=== PATIENT | male | born 1940 | race Caucasian/White ===

== ENCOUNTER 2020-11-11 13:16 | Inpatient (IN) ==
--- NOTE | 2020-11-11 13:56 | Emergency Department Note ---
Male Urogenital HPI General Chief complaint: Urogenital-Male Stated complaint: urinary issues Time Seen by Provider: 11/11/20 13:20 Source: patient Mode of arrival: ambulatory Limitations: no limitations History of Present Illness HPI Narrative: Narrative: 80-year-old male with a history of BPH and lower urinary tract symptoms presents the ER to be evaluated for increasing urgency, frequency, hesitancy and retent ion. He states he can never get a significant amount of fluid out when he urinates. He states he has had some pain with urination but denies any blood with his urination. He was recently treated with Macrobid for urinary tract infection and his primary care is done at the [facility] by Torsten Gill. He states he has not had any fever, chills, body aches, nausea or vomiting. His symptoms have persisted for approximately 2 months and have been worsening. His only other complaint is he states he has felt generally weak. He has had no syncope or near syncope and denies groin or flank pain. He did have a PSA of 5.04 that was taken while at the [facility]. He previously had a urologist to last saw him in July 2019 but has since left the [facility]. Related Data Home Medications Medication Instructions Recorded Confirmed aspirin [Aspir-81] 81 mg PO QDAY 11/11/20 11/11/20 cholecalciferol (vitamin D3) 100 mcg PO QDAY 11/11/20 11/11/20 [Vitamin D3] doxazosin 1 mg PO QHS 11/11/20 11/11/20 saw palmetto-pumpkin seed oil 160 cap PO DAILY 11/11/20 11/11/20 sildenafil 100 mg PO QDAY PRN 11/11/20 11/11/20 Allergies Allergy/AdvReac Type Severity Reaction Status Date / Time Ether Allergy Unknown Unknown Verified 11/11/20 15:46 Penicillins AdvReac Intermediate Hives Verified 11/11/20 15:46 melaleuca oil Allergy Unknown Unknown Uncoded 06/17/19 09:25 Review of Systems ROS ROS Narrative: Narrative: All systems ED: reviewed and negative except as stated. [facility] Narrative Patient History Narrative: Narrative: Medical/Surgical/Family History All Active Problems (Updated 11/11/20 @ 16:06 by Sedrick Sinclair PA-C) Acute GI bleeding (Acute) Hematuria (Chronic) Muscle spasm of back (Chronic) Right knee pain (Chronic) Enlarged prostate without lower urinary tract symptoms (luts) (Chronic) Nontoxic thyroid nodule (Chronic) Right thigh pain (Chronic) Back pain (Chronic) Multiple rib fractures (Chronic) Benign prostatic hyperplasia (Chronic) Lumbar vertebral fracture (Chronic) Right femoral fracture (Chronic) Urinary retention (Chronic) Medical History Back pain Benign prostatic hyperplasia Enlarged prostate without lower urinary tract symptoms (luts) Hematuria Lumbar vertebral fracture Multiple rib fractures Muscle spasm of back Nontoxic thyroid nodule Right femoral fracture Right knee pain Right thigh pain Urinary retention Surgical History History of surgery Left Femur, "1960's or 1970's" Family History Mother Ovarian cancer Father Myocardial infarction Other Ischemic heart disease Social History Smoking Status: Never smoker Alcohol Intake Frequency: holiday/special occasion only Substance Use: does not use Exam Narrative Narrative: Narrative: Gen: No acute distress Eyes: PERRL, no conjunctival injection , and symmetrical lids. Sclerae non ic teric HENMT: Normocephalic Atraumatic head, external nose and ears. Moist MM. CVS: +S1/S2, No murmurs or gallops. Radial pulses 2+ and equal bilat. lower extremity 2+ pitting edema RESP: Unlabored respiratory effort . Clear to auscultation bilaterally (CTAB). No noted wheezes rales or ronchi. GI: Nontender/Nondistended (NTND), mild suprapubic tenderness to palpation Urogenital: Uncircumcised penis, Osmel material on the anterior portion of the glans without evidence of infection or yeast infiltration. No discharge from the glans. Patient has significant tenderness over the epididymis bilaterally, no scrotal swelling or deformity. MSK: Extremities w/o deformity or ttp. No cyanosis or clubbing. Skin: Warm, Dry . No rashes or lesions . Cap refill less than 2. Neuro: No focal neurological deficit Psych: Awake, Alert, & Oriented (AAO) x3. Appropriate mood and affect . General Limitations: no limitations Course Course Course Narrative: Patient has been having dysuria, hesitancy, urgency and frequency with limited amounts over the past several months he feels like he is retaining. He also states he is felt generally weak. He does have a positive PSA of 5.04 which was taken at the [facility]. He denies any other complaints such as nausea, vomiting, chest pain, chest pressure, weight loss, perineal pain. He did have significant tenderness over the epididymis bilaterally. He had a urologist visit July 2019 but that urologist has since left the [facility]. He is taking doxazosin currently. He will be evaluated with bladder scan, CBC, CMP, UA, urine culture and ultrasound of the testicles at this time. Vital Signs Vital signs: Vital Signs Temperature 97.7 F 11/11/20 13:16 Pulse Rate 91 H 11/11/20 13:16 Respiratory Rate 18 11/11/20 13:16 Blood Pressure 116/64 11/11/20 13:16 Pulse Oximetry (%) 99 11/11/20 13:16 Temperature 97.7 F 11/11/20 13:16 Pulse Rate 83 11/11/20 15:16 Respiratory Rate 18 11/11/20 13:16 Blood Pressure 114/65 11/11/20 15:16 Pulse Oximetry (%) 97 11/11/20 15:16 MDM MDM Narrative Medical decision making narrative: Narrative: Bladder Scan: 6 Mls CBC: Hemoglobin of 6-1/2 more rectal exam was performed and Hemoccult was positive CMP: Unremarkable UA: Significant elevation WBC's, positive for leukoesterase, RBCs, calcium oxalate crystals, neg for bacteria urine Culture: Pending US testicles: Good blood flow bilaterally, no evidence of testicles are homogenous no evidence of mass. There is slight hydrocele and no evidence of epididymitis. Patient states he has been generally weak for a few months and is now having urine hesitancy, urgency, frequency and dysuria. He has had recent urinary tract infections which are well treated with Macrobid. Patient denies any bleeding from the rectum or with his stools. Rectal exam was performed which was Hemoccult positive. Patient was also found to be significantly anemic with a hemoglobin of 6.5. I attempted to contact his primary care provider at the [facility] Torsten Gill who is not in today. Given the patient's GI bleeding and significant anemia and current transfusion. I feel he would benefit from further inpatient evaluation. We currently do not have a sales coordinator on-call however, Dr. Suárez general surgeon does do colonoscopies and is on-call today. He will be contacted at this time. Dr. Suárez: States he would come in to see the patient will be glad to prep him and perform colonoscopy while patient is inpatient and he should be admitted to the hospitalist. Dr. Saldana: Agreed to admit the patient he requested the patient receive 40 mg of Protonix at this time due to GI bleeding. He would further evaluate the patient and will place outpatient urology referral in when the patient is discharged. Lab Data Result diagrams: 11/11/20 14:06 11/11/20 14:06 Labs: Lab Results 11/11/20 11/11/20 Range/Units 13:47 14:06 WBC 7.8 (4.5-11.0) K/mcL RBC 3.58 L (4.50-5.90) M/mcL Hgb 6.5 L* (13.5-16.5) g/dL Hct 24.6 L (41.0-55.0) % MCV 68.7 L (80.0-100.0) fL MCH 18.2 L (26.0-34.0) pg MCHC 26.4 L (31.0-36.0) g/dL RDW 19.3 H (11.5-14.5) % Plt Count 388 (140-440) K/mcL MPV 9.9 (7.4-10.4) fL Neut % (Auto) 74.0 (38.0-78.0) % Lymph % (Auto) 15.5 (15.0-49.0) % [place] % (Auto) 8.6 (1.0-12.0) % Eos % (Auto) 1.4 (0.0-7.0) % Baso % (Auto) 0.5 (0.0-2.0) % Lymph # (Auto) 1.21 L (1.50-4.80) K/mcL [place] # (Auto) 0.67 (0.10-0.90) K/mcL Eos # (Auto) 0.11 (0.00-0.70) K/mcL Baso # (Auto) 0.04 (0.00-0.20) K/mcL Absolute Neutrophils 5.79 (1.80-8.00) K/mcL Urine Color [place] Urine Appearance Cloudy A (Clear) Urine pH 5.0 (5.0-9.0) Ur Specific [place] 1.025 (1.000-1.035) Urine Protein 100 A (Negative) mg/dL Urine Glucose (UA) Negative (Negative) mg/dL Urine Ketones Negative (Negative) mg/dL Urine Occult Blood >=1.0 A (Negative) mg/dL Urine Nitrate Negative (Negative) Urine Bilirubin Negative (Negative) mg/dL Urine Urobilinogen Negative mg/dL Ur Leukocyte Esterase 500 A (Negative) /ug Urine RBC > 182 H (0-1) /hpf Urine WBC > 182 H (0-4) /hpf Ur Squamous Epith Cells 0 (0-4) /hpf Ur Transition Epith Cell 1 (0-2) /hpf Calcium Oxalate Crystal Many A (None) /hpf Urine Bacteria None (0) /hpf Hyaline Casts 6 H (0-2) /lph Urine Mucus Many A (None) /hpf Ur Culture Indicated? yes Discharge Plan Patient/Caregiver Discharge Instructions Pt seen by RHEUMATOLOGIST/PA only: No Clinical Impression: Acute GI bleeding Patient Disposition: Xfer As Inpt ([facility]) Condition: Good Follow up with: Torsten Gill ARNP [Primary Care Provider] - Prescriptions: No Action doxazosin 1 mg Tablet 1 mg PO QHS RF: 0 aspirin [Aspir-81] 81 mg Tablet,Delayed Release (Dr/Ec) 81 mg PO QDAY RF: 0 sildenafil 100 mg Tablet 100 mg PO QDAY PRN (Reason: Erectile Dysfunction) RF: 0 saw palmetto-pumpkin seed oil 160 mg Capsule 160 cap PO DAILY RF: 0 cholecalciferol (vitamin D3) [Vitamin D3] 50 mcg (2,000 unit) Capsule 100 mcg PO QDAY RF: 0
[2020-11-11 14:31] LABS: Appearance,Urine CLOUDY (Clear); Bilirubin,Urine Negative (Negative); Calcium Oxalate Crystals,Urine MANY /hpf; Color,Urine AMBER; Culture Indicated,Urine yes; Glucose,Urine (UA) Negative (Negative); Ketones,Urine Negative (Negative); Leukocyte Esterase,Urine 500 /ug (Negative); Mucus,Urine MANY /hpf; Nitrate,Urine Negative (Negative); Protein,Urine 100 mg/dL (Negative); Specific Gravity,Urine 1.025 (1.000-1.035); Urine Blood >=1.0 mg/dL (Negative); Urine Hyaline Cast 6 /lph (0-2); Urine RBC > 182 /hpf (0-1); Urine Squamous Epithelial Cell 0 /hpf (0-4); Urine Transitional Epi Cells 1 /hpf (0-2); Urine WBC > 182 /hpf (0-4); Urobilinogen,Urine Negative
[2020-11-11 15:05] LABS: Basophils # (Auto) 0.04 K/mcL (0.00-0.20); Basophils % (Auto) 0.5 % (0.0-2.0); Eosinophils # (Auto) 0.11 K/mcL (0.00-0.70); Eosinophils % (Auto) 1.4 % (0.0-7.0); Hematocrit 24.6 % (41.0-55.0); Hemoglobin 6.5 g/dL (13.5-16.5); Lymphocytes # (Auto) 1.21 K/mcL (1.50-4.80); Lymphocytes % (Auto) 15.5 % (15.0-49.0); Mean Cell Volume 68.7 fL (80.0-100.0); Mean Corpuscular HGB Conc 26.4 g/dL (31.0-36.0); Mean Platelet Volume 9.9 fL (7.4-10.4); Monocytes # (Auto) 0.67 K/mcL (0.10-0.90); Monocytes % (Auto) 8.6 % (1.0-12.0); Platelet Count 388 K/mcL (140-440); RBC 3.58 M/mcL (4.50-5.90); Red Cell Distribution Width 19.3 % (11.5-14.5); WBC 7.8 K/mcL (4.5-11.0)
[2020-11-11] MEDS ORDERED: 0.9 % SODIUM CHLORIDE 250 ML IV SCH (15:15)
[2020-11-11 15:43] LABS: ALT/SGPT 15 U/L (<40); AST/SGOT 21 U/L (<40); Albumin 3.5 gm/dL (3.2-5.2); Albumin/Globulin Ratio 1.1 (1.0-2.3); Alkaline Phosphatase 90 U/L (39-117); Bilirubin,Total 0.3 mg/dL (0.1-1.0); Blood Urea Nitrogen 20 mg/dL (8-23); Calcium 8.4 mg/dL (8.6-10.4); Carbon Dioxide 24 mmol/L (22-30); Chloride 108 mmol/L (96-108); Globulin 3.1 gm/dL (2.2-3.7); Glomerular Filtration Rate 71; Glucose 116 mg/dL (70-105)
[2020-11-11] MEDS ORDERED: PANTOPRAZOLE 40 MG VIAL IV ONE ×2 (16:07→20:09)
--- NOTE | 2020-11-11 16:22 | Internal Med History&Physical ---
HPI History of Present Illness Patient information: Note initiated : 11/11/20 at 4:22 pm Service Date, if different from initiated Date: [] Patient: Sylvester Rogers a 80 y/o M admitted on for urinary issues. Chief Complaint: [] History of present illness: Mr. Rogers is a 80 year old M with history of hypertension/BPH who presents to the ER with progressive fatigue weakness difficulty urination over the last few days. He was evaluated at [facility], hemoglobin around 6.5, UA significant pyuria/hematuria. He was directed to the ER for further evaluation. Initial work-up in the ER was consistent with anemia however no evidence of acute bleed. surgery was consulted for evaluation. Patient was started on Protonix. Patient endorses to exertional shortness of breath and fatigue and malaise. He is unable to perform strenuous activities or climb a flight of stairs over the last couple of months. He denies black tarry stool/nausea/being on blood thinners or excessive alcohol use. He does endorse to brownish discoloration of urine/occasional bloody urine He lives with his and [place]. Denies fever, chills, recent changes in medications, NSAID use Review of systems 10 point review system was performed and is negative except for ones cussed above PFSH PFSH All Active Problems Acute GI bleeding (Acute) Hematuria (Chronic) Muscle spasm of back (Chronic) Right knee pain (Chronic) Enlarged prostate without lower urinary tract symptoms (luts) (Chronic) Nontoxic thyroid nodule (Chronic) Right thigh pain (Chronic) Back pain (Chronic) Multiple rib fractures (Chronic) Benign prostatic hyperplasia (Chronic) Lumbar vertebral fracture (Chronic) Right femoral fracture (Chronic) Urinary retention (Chronic) Medical History Back pain Benign prostatic hyperplasia Enlarged prostate without lower urinary tract symptoms (luts) Hematuria Lumbar vertebral fracture Multiple rib fractures Muscle spasm of back Nontoxic thyroid nodule Right femoral fracture Right knee pain Right thigh pain Urinary retention Surgical History History of surgery Left Femur, "1960's or 1970's" Family History Mother Ovarian cancer Father Myocardial infarction Other Ischemic heart disease Social History household members: spouse marital status: alcohol intake frequency: holiday/special occasion only substance use type: does not use MEDS/ALLERGIES Home Medications and Allergies Home Medications Medication Instructions Recorded Confirmed Type aspirin [Aspir-81] 81 mg PO QDAY 11/11/20 11/11/20 History cholecalciferol (vitamin D3) 100 mcg PO QDAY 11/11/20 11/11/20 History [Vitamin D3] doxazosin 1 mg PO QHS 11/11/20 11/11/20 History saw palmetto-pumpkin seed oil 160 cap PO DAILY 11/11/20 11/11/20 History sildenafil 100 mg PO QDAY PRN 11/11/20 11/11/20 History Allergies Allergy/AdvReac Type Severity Reaction Status Date / Time Ether Allergy Mild Hives Verified 11/12/20 08:51 Penicillins Allergy Mild Hives Verified 11/12/20 08:51 melaleuca oil Allergy Mild Hives Uncoded 11/12/20 08:51 EXAM Constitutional Vitals: Temp Pulse Resp BP Pulse Ox 97.7 F 82 18 122/68 99 11/11/20 13:16 11/11/20 15:46 11/11/20 13:16 11/11/20 15:46 11/11/20 15:46 Alert oriented Head normocephalic Oral cavity moist No ear nose discharge Eye movement symmetrical, subconjunctival pallor noted Neck supple no lymphadenopathy S1-S2 occasionally irregular Nonlabored breathing Nondistended nontender abdomen Lower extremity no cyanosis clubbing or joint swelling Skin pallor noted, no suspicious lesion Psych anxious but alert cooperative Neuro normal higher function DATA Data Completed and Pending Labs: Labs from last 24 hours 11/11/20 11/11/20 11/11/20 14:06 14:06 14:06 WBC 7.8 RBC 3.58 L Hgb 6.5 L* Hct 24.6 L MCV 68.7 L MCH 18.2 L MCHC 26.4 L RDW 19.3 H Plt Count 388 MPV 9.9 Neut % (Auto) 74.0 Lymph % (Auto) 15.5 [place] % (Auto) 8.6 Eos % (Auto) 1.4 Baso % (Auto) 0.5 Lymph # (Auto) 1.21 L [place] # (Auto) 0.67 Eos # (Auto) 0.11 Baso # (Auto) 0.04 Absolute Neutrophils 5.79 Sodium 140 Potassium 4.2 Chloride 108 Carbon Dioxide 24 Anion Gap 8.0 BUN 20 Creatinine 1.0 GFR Calculation 71 Glucose 116 H Calcium 8.4 L Iron 10 L TIBC 342 Unsat Iron Binding 332 Transferrin % Sat 3 L Ferritin Pending Total Bilirubin 0.3 AST 21 ALT 15 Alkaline Phosphatase 90 Total Protein 6.6 Albumin 3.5 Globulin 3.1 Albumin/Globulin Ratio 1.1 Urine Color Urine Appearance Urine pH Ur Specific [place] Urine Protein Urine Glucose (UA) Urine Ketones Urine Occult Blood Urine Nitrate Urine Bilirubin Urine Urobilinogen Ur Leukocyte Esterase Urine RBC Urine WBC Ur Squamous Epith Cells Ur Transition Epith Cell Calcium Oxalate Crystal Urine Bacteria Hyaline Casts Urine Mucus Ur Culture Indicated? 11/11/20 13:47 WBC RBC Hgb Hct MCV MCH MCHC RDW Plt Count MPV Neut % (Auto) Lymph % (Auto) [place] % (Auto) Eos % (Auto) Baso % (Auto) Lymph # (Auto) [place] # (Auto) Eos # (Auto) Baso # (Auto) Absolute Neutrophils Sodium Potassium Chloride Carbon Dioxide Anion Gap BUN Creatinine GFR Calculation Glucose Calcium Iron TIBC Unsat Iron Binding Transferrin % Sat Ferritin Total Bilirubin AST ALT Alkaline Phosphatase Total Protein Albumin Globulin Albumin/Globulin Ratio Urine Color [place] Urine Appearance Cloudy A Urine pH 5.0 Ur Specific [place] 1.025 Urine Protein 100 A Urine Glucose (UA) Negative Urine Ketones Negative Urine Occult Blood >=1.0 A Urine Nitrate Negative Urine Bilirubin Negative Urine Urobilinogen Negative Ur Leukocyte Esterase 500 A Urine RBC > 182 H Urine WBC > 182 H Ur Squamous Epith Cells 0 Ur Transition Epith Cell 1 Calcium Oxalate Crystal Many A Urine Bacteria None Hyaline Casts 6 H Urine Mucus Many A Ur Culture Indicated? yes A/P Narrative A/P Narrative: * Anemia likely secondary blood loss. Unclear source urinary versus GI, 2 units PRBC transfusion, surgery consult for evaluation of likely GI source of blood loss. IV PPI/clears * Complicated UTI on antibiotic [id number] based on cultures. * Hematuria-abdominal imaging. Urology consult if indicated * History of hypertension continue doxazosin * Prophylax Heparin Plan * Antibiotic coverage * Pre-existing medical condition management home meds * Abdominal imaging for hematuria * IV PPI * Surgery consult * 2 units PRBC transfusion Time Spent With Patient Time: Total time spent is greater than 50% in coordination of care (as documented) at patient's floor/unit and/or counseling patient:
--- NOTE | 2020-11-11 16:42 | Ultrasound Report ---
CLINICAL INFORMATION: Scrotum pain bilat r/o epididymitis or torsion COMPARISON: None. FINDINGS: Both testes are normal and symmetric in size, position, configuration and echotexture: The right is 3.4 x 1.8 cm and the left is 3.3 x 2.1 cm. There are no intratesticular masses. Arterial blood flow is normal and symmetric to both testes on color Doppler. Both epididymides are normal size and echotexture: the right is 1.3 x 0.8 cm and the left is 1.1 x 0.6 cm. Small left hydrocele noted. On the right, there is a small varicocele. A 9 mm echogenic focus is present extratesticular region of the right testicle represents a scrotal faith IMPRESSION: Both testes and epididymides are unremarkable. Small left hydrocele and small right varicocele 8mm scrotal faith in extratesticular region on the right side. 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
[2020-11-11 16:59] LABS: Ferritin 9.7 ng/mL (30.0-400.0)
--- NOTE | 2020-11-11 17:22 | General Surgery Consult Note ---
HPI Data of Consult Patient: new to practice Consult date: 11/11/20 Requesting physician: Sedrick Sinclair Primary Care Provider: Torsten Gill Consult Narrative Patient Information: Note initiated : 11/11/20 at 5:22 pm Service Date, if different from initiated Date: [] Patient: Sylvester Rogers 80 y/o M admitted on for urinary issues. Chief Complaint: [] Chief complaint: Urinary frequency and urgency Reason for consult: Decreased hemoglobin cc:: CC: 80-year-old male with a history of BPH and lower urinary tract symptoms presents the ER to be evaluated for increasing urgency, frequency, hesitancy and retention. He states he can never get a significant amount of fluid out when he urinates. He states he has had some pain with urination but denies any blood with his urination. He was recently treated with Macrobid for urinary tract infection and his primary care is done at the [facility] by Torsten Gill. He states he has not had any fever, chills, body aches, nausea or vomiting. His symptoms have persisted for approximately 2 months and have been worsening. His only other complaint is he states he has felt generally weak. He has had no syncope or near syncope and denies groin or flank pain. He did have a PSA of 5.04 that was taken while at the [facility]. He previously had a urologist to last saw him in July 2019 but has since left the [facility]. On work-up patient was found to have a low H&H, along with blood in the urine and Hemoccult positive stools. Patient reports that he has had regular colorectal screening with colonoscopy, and his last one was several years ago and they have all been negative. He denies any bowel changes, he denies seeing any blood in his stools or dark or melanotic stools. Review of Systems Review of systems: All systems are reviewed, negative other than above PFSH PFSH All Active Problems Acute GI bleeding (Acute) Hematuria (Chronic) Muscle spasm of back (Chronic) Right knee pain (Chronic) Enlarged prostate without lower urinary tract symptoms (luts) (Chronic) Nontoxic thyroid nodule (Chronic) Right thigh pain (Chronic) Back pain (Chronic) Multiple rib fractures (Chronic) Benign prostatic hyperplasia (Chronic) Lumbar vertebral fracture (Chronic) Right femoral fracture (Chronic) Urinary retention (Chronic) Medical History Back pain Benign prostatic hyperplasia Enlarged prostate without lower urinary tract symptoms (luts) Hematuria Lumbar vertebral fracture Multiple rib fractures Muscle spasm of back Nontoxic thyroid nodule Right femoral fracture Right knee pain Right thigh pain Urinary retention Surgical History History of surgery Left Femur, "1960's or 1970's" Family History Mother Ovarian cancer Father Myocardial infarction Other Ischemic heart disease Social History household members: spouse marital status: alcohol intake frequency: holiday/special occasion only substance use type: does not use MEDS/ALLERGIES Home Medications and Allergies Home Medications Medication Instructions Recorded Confirmed Type aspirin [Aspir-81] 81 mg PO QDAY 11/11/20 11/11/20 History cholecalciferol (vitamin D3) 100 mcg PO QDAY 11/11/20 11/11/20 History [Vitamin D3] doxazosin 1 mg PO QHS 11/11/20 11/11/20 History saw palmetto-pumpkin seed oil 160 cap PO DAILY 11/11/20 11/11/20 History sildenafil 100 mg PO QDAY PRN 11/11/20 11/11/20 History Allergies Allergy/AdvReac Type Severity Reaction Status Date / Time Ether Allergy Unknown Unknown Verified 11/11/20 15:46 Penicillins AdvReac Intermediate Hives Verified 11/11/20 15:46 melaleuca oil Allergy Unknown Unknown Uncoded 06/17/19 09:25 Physical Examination Vital Signs Vital signs: Temp Pulse Resp BP Pulse Ox 97.7 F 80 18 121/68 96 11/11/20 13:16 11/11/20 17:16 11/11/20 13:16 11/11/20 17:16 11/11/20 17:16 General physical appearance General physical exam: well developed, well nourished and no distress Eyes Eye exam: PERRL and normal ocular movement ENT ENT exam: normal pinna, normal nares, normal mucosa, no hearing loss and no congestion Head Head exam IM: Present atraumatic and normocephalic Neck Neck exam: no masses, no bruits, trachea midline, no lymphadenopathy and no venous distension Cardiovascular Cardiovascular exam IM: Present normal rate and rhythm Respiratory Respiratory exam: normal expansion, normal respiratory effort, clear to percussion and clear to auscultation Abdomen Abdomen: Present soft, non tender and bowel sounds Hernia: Present none Genitourinary Genitourinary (Male): Present normal penis with no external lesions Rectum Rectum: Present normal sphincter tone, no hemorrhoids, no tenderness, no masses and no bleeding Integumentary Integumentary: Present no rash, no growths and no abnormal pigmentation Neurologic Neurologic: Present normal coordination and normal sensation Musculoskeletal Musculoskeletal: Present normal gait and normal posture Psychiatric Psychiatric: Present oriented to time, oriented to person, oriented to place, speech is normal and memory intact Results Labs Result diagrams: 11/11/20 14:06 11/11/20 14:06 Labs: Abnormal lab results 11/11/20 11/11/20 11/11/20 Range/Units 13:47 14:06 14:06 RBC 3.58 L (4.50-5.90) M/mcL Hgb 6.5 L* (13.5-16.5) g/dL Hct 24.6 L (41.0-55.0) % MCV 68.7 L (80.0-100.0) fL MCH 18.2 L (26.0-34.0) pg MCHC 26.4 L (31.0-36.0) g/dL RDW 19.3 H (11.5-14.5) % Lymph # (Auto) 1.21 L (1.50-4.80) K/mcL Glucose 116 H (70-105) mg/dL Calcium 8.4 L (8.6-10.4) mg/dL Iron (61-157) ug/dL Transferrin % Sat (20-50) % Ferritin (30.0-400.0) ng/mL Urine Appearance Cloudy A (Clear) Urine Protein 100 A (Negative) mg/dL Urine Occult Blood >=1.0 A (Negative) mg/dL Ur Leukocyte Esterase 500 A (Negative) /ug Urine RBC > 182 H (0-1) /hpf Urine WBC > 182 H (0-4) /hpf Calcium Oxalate Crystal Many A (None) /hpf Hyaline Casts 6 H (0-2) /lph Urine Mucus Many A (None) /hpf 11/11/20 Range/Units 14:06 RBC (4.50-5.90) M/mcL Hgb (13.5-16.5) g/dL Hct (41.0-55.0) % MCV (80.0-100.0) fL MCH (26.0-34.0) pg MCHC (31.0-36.0) g/dL RDW (11.5-14.5) % Lymph # (Auto) (1.50-4.80) K/mcL Glucose (70-105) mg/dL Calcium (8.6-10.4) mg/dL Iron 10 L (61-157) ug/dL Transferrin % Sat 3 L (20-50) % Ferritin 9.7 L (30.0-400.0) ng/mL Urine Appearance (Clear) Urine Protein (Negative) mg/dL Urine Occult Blood (Negative) mg/dL Ur Leukocyte Esterase (Negative) /ug Urine RBC (0-1) /hpf Urine WBC (0-4) /hpf Calcium Oxalate Crystal (None) /hpf Hyaline Casts (0-2) /lph Urine Mucus (None) /hpf Diabetes panel 11/11/20 Range/Units 14:06 Sodium 140 (133-145) mmol/L Potassium 4.2 (3.3-5.1) mmol/L Chloride 108 (96-108) mmol/L Carbon Dioxide 24 (22-30) mmol/L BUN 20 (8-23) mg/dL Creatinine 1.0 (0.7-1.2) mg/dL Glucose 116 H (70-105) mg/dL Calcium 8.4 L (8.6-10.4) mg/dL AST 21 (<40) U/L ALT 15 (<40) U/L Alkaline Phosphatase 90 (39-117) U/L Total Protein 6.6 (5.9-8.4) gm/dL Albumin 3.5 (3.2-5.2) gm/dL Calcium panel 11/11/20 Range/Units 14:06 Calcium 8.4 L (8.6-10.4) mg/dL Albumin 3.5 (3.2-5.2) gm/dL Pituitary panel 11/11/20 Range/Units 14:06 Sodium 140 (133-145) mmol/L Potassium 4.2 (3.3-5.1) mmol/L Chloride 108 (96-108) mmol/L Carbon Dioxide 24 (22-30) mmol/L BUN 20 (8-23) mg/dL Creatinine 1.0 (0.7-1.2) mg/dL Glucose 116 H (70-105) mg/dL Calcium 8.4 L (8.6-10.4) mg/dL Adrenal panel 11/11/20 Range/Units 14:06 Sodium 140 (133-145) mmol/L Potassium 4.2 (3.3-5.1) mmol/L Chloride 108 (96-108) mmol/L Carbon Dioxide 24 (22-30) mmol/L BUN 20 (8-23) mg/dL Creatinine 1.0 (0.7-1.2) mg/dL Glucose 116 H (70-105) mg/dL Calcium 8.4 L (8.6-10.4) mg/dL Total Bilirubin 0.3 (0.1-1.0) mg/dL AST 21 (<40) U/L ALT 15 (<40) U/L Alkaline Phosphatase 90 (39-117) U/L Total Protein 6.6 (5.9-8.4) gm/dL Albumin 3.5 (3.2-5.2) gm/dL All other labs normal. A/P Narrative A/P Narrative: This is a pleasant 80-year-old gentleman who presents to the emergency room with escalation of his known urologic problems. On work-up he was found to have heme positive stools along with decreased hemoglobin and hematocrit. Patient has a history of colorectal screening which has been within normal limits, however cannot rule out an acute bleed. The patient's blood loss is more likely related to his urological conditions, however I think it be prudent to do an EGD and colonoscopy while in the hospital. I will plan to order a bowel prep tomorrow and add on the OR schedule for an EGD and colonoscopy on Monday. Thank you very much for this consultation, please call with any further questions. Sahil Suárez MD, FACS [facility] General Surgery Time Spent With Patient Time: Total time spent is greater than 50% in coordination of care (as documented) at patient's floor/unit and/or counseling patient:
[2020-11-11] MEDS ORDERED: ONDANSETRON 4 MG/2 ML VIAL IV PRN (18:21)
[2020-11-11] MEDS ORDERED: POLYETHYLENE GLYCOL 3350 17 GM PACKET PO PRN (18:21)
[2020-11-11] MEDS ORDERED: MAGNESIUM SULFATE 2 GM/50 ML BAG IV PRN (18:21)
[2020-11-11] MEDS ORDERED: ACETAMINOPHEN 650 MG/65 ML BAG IV PRN (18:21)
[2020-11-11] MEDS ORDERED: BISACODYL 10 MG SUPP.RECT PR PRN (18:21)
[2020-11-11] MEDS ORDERED: ONDANSETRON 4 MG ODT TABLET SL PRN (18:21)
[2020-11-11] MEDS ORDERED: POTASSIUM CHLORIDE 40 MEQ in DEXTROSE 5% IN WATER 500 ML IV PRN (18:21)
[2020-11-11] MEDS: 0.9 % SODIUM CHLORIDE 1,000 ML IV SCH (19:09)
[2020-11-11] MEDS ORDERED: cefTRIAXone 1 GM VIAL ONE (20:09)
[2020-11-11] MEDS: PANTOPRAZOLE 40 MG VIAL IV SCH (20:29)
[2020-11-11] MEDS: 0.9 % SODIUM CHLORIDE 10 ML SYRINGE IV SCH (21:09)
[2020-11-11] MEDS: DOCUSATE SODIUM 100 MG CAPSULE PO SCH (21:09)
[2020-11-11] MEDS: SENNOSIDES/DOCUSATE SODIUM 1 TAB TABLET PO SCH (21:09)
[2020-11-11] MEDS: CYANOCOBALAMIN (VITAMIN B-12) 500 MCG TABLET PO SCH (21:15)
[2020-11-11] MEDS: HEPARIN 5,000 UNIT/ML VIAL SQ SCH (21:15)
[2020-11-12] MEDS: ACETAMINOPHEN 325 MG TABLET PO PRN (03:22)
[2020-11-12] MEDS: 0.9 % SODIUM CHLORIDE 10 ML SYRINGE IV SCH ×3 (04:20→20:17)
[2020-11-12 06:34] LABS: Basophils # (Auto) 0.05 K/mcL (0.00-0.20); Basophils % (Auto) 0.7 % (0.0-2.0); Eosinophils % (Auto) 2.8 % (0.0-7.0); Hematocrit 27.3 % (41.0-55.0); Hemoglobin 7.7 g/dL (13.5-16.5); Lymphocytes # (Auto) 1.16 K/mcL (1.50-4.80); Lymphocytes % (Auto) 16.5 % (15.0-49.0); Mean Cell Volume 70.2 fL (80.0-100.0); Mean Corpuscular HGB Conc 28.2 g/dL (31.0-36.0); Mean Platelet Volume 10.1 fL (7.4-10.4); Monocytes # (Auto) 0.66 K/mcL (0.10-0.90); Monocytes % (Auto) 9.4 % (1.0-12.0); Neutrophils % (Auto) 70.6 % (38.0-78.0); Platelet Count 360 K/mcL (140-440); RBC 3.89 M/mcL (4.50-5.90); Red Cell Distribution Width 20.5 % (11.5-14.5); WBC 7.1 K/mcL (4.5-11.0)
[2020-11-12 07:08] LABS: ALT/SGPT 11 U/L (<40); AST/SGOT 21 U/L (<40); Albumin 3.2 gm/dL (3.2-5.2); Albumin/Globulin Ratio 1.1 (1.0-2.3); Alkaline Phosphatase 84 U/L (39-117); Bilirubin,Direct < 0.2 mg/dL (0-0.3); Bilirubin,Total 0.8 mg/dL (0.1-1.0); Blood Urea Nitrogen 16 mg/dL (8-23); Calcium 7.8 mg/dL (8.6-10.4); Carbon Dioxide 25 mmol/L (22-30); Chloride 110 mmol/L (96-108); Globulin 2.9 gm/dL (2.2-3.7); Glomerular Filtration Rate 90; Glucose 94 mg/dL (70-105); Lactate Dehydrogenase 175 U/L (135-225); Phosphorous 2.7 mg/dL (2.5-4.5); Triglycerides 54 mg/dL (<150); Uric Acid 4.4 mg/dL (2.5-8.0)
[2020-11-12] MEDS ORDERED: PEG 3350/NA SULF,BICARB,CL/KCL 4,000 ML ORAL.SOL PO ONE (08:30)
--- NOTE | 2020-11-12 08:30 | General Surgery Progress Note ---
SUBJECTIVE Subjective Patient information: Note initiated : 11/12/20 at 8:28 am Service Date, if different from initiated Date: [] Patient: Sylvester Rogers 80 y/o M admitted on 11/11/20 for urinary issues. Chief Complaint: [] Interval history: Patient is doing well without complaints this morning. No change in symptoms since last night. Constitutional Vitals: Vital Signs Temp Pulse Resp BP Pulse Ox 98.1 F 74 20 126/77 94 11/12/20 04:01 11/12/20 07:01 11/12/20 07:01 11/12/20 07:01 11/12/20 07:01 Period Temp Pulse Resp BP Sys/Barrera Pulse Ox Last 24 Hr 97.7 F-98.7 F 71-91 15-31 113-146/61-90 90-100 Intake and Output 11/11/20 11/12/20 11/12/20 21:59 05:59 13:59 Intake Total 425 1030 400 Output Total 575 Balance 425 455 400 Weight 243 lb Intake & Output: Intake & Output 11/11/20 11/12/20 11/12/20 21:59 05:59 13:59 Intake Total 425 1030 400 Output Total 575 Balance 425 455 400 Weight 243 lb Intake: Oral 350 400 Blood Product 375 340 Packed Cells 340 IV - Manual Only 50 Output: Void Amount 575 Other: Meal Breakfast Percent of Meal Consumed 100% Feeding Ability Independent Urine Appearance Clear Urine Color Dark Yellow Urine Odor Normal Stool Size Moderate Moderate Stool Color Brown Brown Stool Consistency Normal for Patient Normal for Patient # Bowel Movements 1 General appearance: cooperative and no acute distress GI/Abdominal GI/Abdominal exam: Present soft; Absent tenderness A/P Narrative A/P Narrative: Complex medical history, however what appears to be chronic anemia with blood in urine and guaiac positive. We will do colon prep today, patient is scheduled for EGD colonoscopy with me tomorrow. Time Spent With Patient Time: Total time spent is greater than 50% in coordination of care (as documented) at patient's floor/unit and/or counseling patient:
[2020-11-12] MEDS ORDERED: PNEUMOCOCCAL 23-VAL P-SAC VAC 0.5 ML SYRINGE IM ONE (10:00)
[2020-11-12] MEDS: CYANOCOBALAMIN (VITAMIN B-12) 500 MCG TABLET PO SCH ×2 (10:09→20:16)
[2020-11-12] MEDS: MULTIVIT,THER IRON,CA,FA & MIN 1 TABLET PO SCH (10:09)
[2020-11-12] MEDS: HEPARIN 5,000 UNIT/ML VIAL SQ SCH ×2 (10:10→20:17)
[2020-11-12] MEDS: cefTRIAXone 2 GM in DEXTROSE 5% IN WATER 50 ML IV SCH (10:10)
[2020-11-12] MEDS: FOLIC ACID 1 MG TABLET PO SCH (10:10)
[2020-11-12] MEDS: PANTOPRAZOLE 40 MG VIAL IV SCH ×2 (10:10→18:29)
[2020-11-12] MEDS ORDERED: IOPAMIDOL 125 ML BOTTLE IV ONE (11:03)
[2020-11-12] MEDS: DOCUSATE SODIUM 100 MG CAPSULE PO SCH ×2 (11:50→20:17)
--- NOTE | 2020-11-12 12:15 | Cat Scan Report ---
CLINICAL INFORMATION: Hematuria COMPARISON: None. TECHNIQUE: 2.5mm precontrast images were obtained from kidneys through bladder. 60 cc of Isovue-370 were then injected intravenously. 7 minutes later, 60 cc of Isovue 370 was reinjected and 8 minutes after initial injection, 0.625 mm helical slices were obtained from the mid heart through the subtrochanteric regions of the femurs. Following reconstruction, 2.5 mm sagittal, coronal and axial reformatted images were obtained through the entire abdomen. The exam was performed using radiation dose optimization techniques including, but not limited to, automated exposure control, adjustment of the mA and/or kV according to patient size and use of iterative reconstruction technique. FINDINGS: Lung bases show scattered atelectasis and/or scarring periphery of the lower lobes. No effusions. The visualized heart is mildly enlarged and there is scattered calcific plaque in the visualized coronary arteries. Small hiatal hernia noted Abdominal images show a large solitary 4.2 cm solitary stone in the gallbladder. Gallbladder and bile ducts are, otherwise, normal CBD is 5 mm. Minimal fatty change present within the liver, but no focal hepatic lesion. The adrenal glands, spleen, pancreas and aorta including aortic branches are normal in size and duration attenuation without focal lesion Both kidneys are normal and symmetric in size, position, configuration and attenuation: The right is 12.2 cm in length and the left is 11 cm in length. A 5 mm simple cyst is present in the right mid kidney and 11 mm simple is seen in the superior pole of the left kidney. No solid lesions, stones or hydronephrosis. Both upper collecting systems and ureters are normal. Pelvic images show massive prostate enlargement 7.2 x 6.5 cm. Prostate base invaginates the urinary bladder. Urinary bladder wall demonstrates moderate diffuse thickening compatible with chronic bladder outlet narrowing. There is a moderate right inguinal hernia which contains mesenteric fat and the right urinary bladder dome. Small left inguinal hernia contains only mesenteric fat. Scattered sigmoid diverticuli appreciated no evidence of diverticulitis. The remaining colon and appendix region are normal. 2.3 cm lipoma is seen within the mid jejunal loop located in the mid abdomen on axial image 89. Small bowel is, otherwise, normal. Stomach is grossly unremarkable. Bone windows show old malunified proximal femoral fractures. Moderate old L3 compression fractures. Moderate degenerative change seen throughout the lumbar spine IMPRESSION: 1. Marked prostate enlargement with moderate diffuse urinary bladder wall thickening compatible chronic bladder outlet narrowing. This is likely the reason for hematuria. 2. 11 mm simple cyst superior pole left kidney and a 5 mm simple cyst mid right kidney. Both kidneys are, otherwise, normal. Upper collecting systems and ureters are unremarkable. 3. 4.2 cm solitary stone in the gallbladder. Gallbladder and bile ducts are, otherwise, normal. 4. Sigmoid diverticulosis, but no evidence of diverticulitis 5. Moderate right inguinal hernia containing mesenteric fat and the right urinary bladder dome. Small left inguinal hernia contains only mesenteric fat. Interpreted and Authenticated by: Rl Leger 11/12/20
--- NOTE | 2020-11-12 13:31 | Internal Med Progress Note ---
SUBJECTIVE Subjective Patient information: Note initiated : 11/12/20 at 1:28 pm Service Date, if different from initiated Date: [] Patient: Sylvester Rogers a 80 y/o M admitted on 11/11/20 for urinary issues. Chief Complaint: [] Interval history: Mr. Rogers is a 80 year old M with history of hypertension/BPH who presents to the ER with progressive fatigue weakness difficulty urination over the last few days. He was evaluated at [facility], hemoglobin around 6.5, UA significant pyuria/hematuria. He was directed to the ER for further evaluation. Initial work-up in the ER was consistent with anemia however no evidence of acute bleed. surgery was consulted for evaluation. Patient was started on Protonix. Patient endorses to exertional shortness of breath and fatigue and malaise. He is unable to perform strenuous activities or climb a flight of stairs over the last couple of months. He denies black tarry stool/nausea/being on blood thinners or excessive alcohol use. He does endorse to brownish discoloration of urine/occasional bloody urine He lives with his and Spivey. Denies fever, chills, recent changes in medications, NSAID use 11/12-patient doing well. Status post units transfusion. Abdominal CT reveals thickened bladder/enlarged prostate. 4.2 cm gallstone. Ongoing prep for colonoscopy/EGD per surgery. Urology consulted for evaluation hematuria. Hemoglobin improved to 7.7 posttransfusion. Creatinine stable, serum iron 10 UA significant for hematuria/pyuria, urine cultures negative. Constitutional Vitals: Vital Signs Temp Pulse Resp BP Pulse Ox 99.5 F H 69 16 117/77 96 11/12/20 12:01 11/12/20 12:01 11/12/20 08:01 11/12/20 12:01 11/12/20 12:01 Period Temp Pulse Resp BP Sys/Barrera Pulse Ox Last 24 Hr 97.8 F-99.5 F 69-89 15-31 112-146/61-90 90-100 Intake and Output 11/11/20 11/12/20 11/12/20 21:59 05:59 13:59 Intake Total 425 1030 450 Output Total 575 175 Balance 425 455 275 Weight 110.223 kg Alert oriented Nonlabored breathing Pallor noted Intake & Output: Intake & Output 11/11/20 11/12/20 11/12/20 21:59 05:59 13:59 Intake Total 425 1030 450 Output Total 575 175 Balance 425 455 275 Weight 110.223 kg Intake: IV 50 Rocephin 2 gm In Dextrose 5% in 50 Water 50 ml @ 100 mls/hr IV Q24H [facility] Rx#:[id number] Oral 350 400 Blood Product 375 340 Packed Cells 340 IV - Manual Only 50 Output: Void Amount 575 175 Other: Meal Breakfast Percent of Meal Consumed 100% Feeding Ability Independent Urine Appearance Clear Urine Color Dark Yellow Dark Yellow Urine Odor Normal Stool Size Moderate Moderate Stool Color Brown Brown Stool Consistency Normal for Patient Normal for Patient # Bowel Movements 1 OBJ DATA Labs CBC & Chem 7: 11/12/20 04:53 11/12/20 04:53 Labs: Abnormal Lab Results 11/12/20 11/12/20 11/11/20 04:53 04:53 14:06 RBC 3.89 L Hgb 7.7 L Hct 27.3 L MCV 70.2 L MCH 19.8 L MCHC 28.2 L RDW 20.5 H Lymph # (Auto) 1.16 L Chloride 110 H Anion Gap 6.0 L Glucose Calcium 7.8 L Iron 10 L Transferrin % Sat 3 L Ferritin 9.7 L Urine Appearance Urine Protein Urine Occult Blood Ur Leukocyte Esterase Urine RBC Urine WBC Calcium Oxalate Crystal Hyaline Casts Urine Mucus 11/11/20 11/11/20 11/11/20 14:06 14:06 13:47 RBC 3.58 L Hgb 6.5 L* Hct 24.6 L MCV 68.7 L MCH 18.2 L MCHC 26.4 L RDW 19.3 H Lymph # (Auto) 1.21 L Chloride Anion Gap Glucose 116 H Calcium 8.4 L Iron Transferrin % Sat Ferritin Urine Appearance Cloudy A Urine Protein 100 A Urine Occult Blood >=1.0 A Ur Leukocyte Esterase 500 A Urine RBC > 182 H Urine WBC > 182 H Calcium Oxalate Crystal Many A Hyaline Casts 6 H Urine Mucus Many A Meds: Medications Acetaminophen (Acetaminophen 325 Mg Tablet) 650 mg PO Q4-6HP PRN; Protocol PRN Reason: Per Pain Protocol/Fever > 101 Last Admin: 11/12/20 03:22 Dose: 650 mg Documented by: Bisacodyl (Bisacodyl 10 Mg Supp.Rect) 10 mg IN Q2-3DAYS PRN PRN Reason: Constipation Cyanocobalamin (Cyanocobalamin (Vitamin B-12) 500 Mcg Tablet) 1,000 mcg PO BID [facility] Stop: 11/16/20 09:01 Last Admin: 11/12/20 10:09 Dose: 1,000 mcg Documented by: Docusate Sodium (Docusate Sodium 100 Mg Capsule) 100 mg PO BID [facility] Last Admin: 11/12/20 11:50 Dose: Not Given Documented by: Folic Acid (Folic Acid 1 Mg Tablet) 1 mg PO DAILY [facility] Last Admin: 11/12/20 10:10 Dose: 1 mg Documented by: Heparin Sodium (Porcine) (Heparin 5,000 Unit/Ml Vial) 5,000 unit SQ Q12 [facility] Last Admin: 11/12/20 10:10 Dose: 5,000 unit Documented by: Potassium Chloride 40 meq/ (Dextrose) 520 mls @ 130 mls/hr IV UD PRN PRN Reason: K+ = or < 3.5 Acetaminophen (Ofirmev) 650 mg in 65 mls @ 130 mls/hr IV Q6HP PRN; Protocol PRN Reason: Per Pain Protocol/Fever > 101 Magnesium Sulfate (Magnesium Sulfate) 2 gm in 50 mls @ 50 mls/hr IV UD PRN PRN Reason: MG = or < 1.7 Sodium Chloride (Sodium Chloride 0.9%) 1,000 mls @ 50 mls/hr IV .Q20H [facility] Stop: 11/14/20 06:20 Last Admin: 11/11/20 19:09 Dose: 50 mls/hr Documented by: Ceftriaxone Sodium 2 gm/ (Dextrose) 50 mls @ 100 mls/hr IV Q24H [facility]; Protocol Last Infusion: 11/12/20 10:40 Dose: Infused Documented by: Iron Carb/Multivit/[employer] Supervisor/Folic Acid (Multivit,Ther Iron,Ca,Fa & Min 1 Tablet) 1 tab PO DAILY [facility] Last Admin: 11/12/20 10:09 Dose: 1 tab Documented by: Melatonin (Melatonin 3 Mg Tablet) 3 mg PO HSP PRN PRN Reason: Insomnia Ondansetron HCl (Ondansetron 4 Mg Odt Tablet) 4 mg SL Q4-6HP PRN; Protocol PRN Reason: Nausea And Vomiting Ondansetron HCl (Ondansetron 4 Mg/2 Ml Vial) 4 mg IV Q4-6HP PRN; Protocol PRN Reason: Nausea And Vomiting Pantoprazole Sodium (Pantoprazole 40 Mg Vial) 40 mg IV BIDAC [facility] Last Admin: 11/12/20 10:10 Dose: 40 mg Documented by: Polyethylene Glycol (Polyethylene Glycol 3350 17 Gm Packet) 17 gm PO DAILYP PRN PRN Reason: Constipation Senna/Docusate Sodium (Sennosides/Docusate Sodium 1 Tab Tablet) 1 tab PO HS [facility] Last Admin: 11/11/20 21:09 Dose: Not Given Documented by: Sodium Chloride (0.9 % Sodium Chloride 10 Ml Syringe) 10 ml IV Q8 [facility] Last Admin: 11/12/20 04:20 Dose: Not Given Documented by: A/P Narrative A/P Narrative: * Anemia likely secondary blood loss. Improving status post 2 units PRBC transfusion. Start IV iron, await upper and lower endoscopy. * Complicated UTI on antibiotic coverage-cultures negative so far. De-escalate antibiotics in 24 hours * Hematuria-enlarged prostate/cystitis on abdominal imaging. Urology consulted. On doxazosin * Prophylax Heparin Plan * De-escalate antibiotics * Pre-existing medical condition management home meds * Continue PPI * IV iron infusion * Surgery consult * 2 units PRBC transfusion Time Spent With Patient Time: Total time spent is greater than 50% in coordination of care (as documented) at patient's floor/unit and/or counseling patient: QUALITY Stroke Symptom Onset Unknown: No VTE Deep Vein Thrombosis/Pulmonary Embolism Present on Admission: No
[2020-11-12] MEDS ORDERED: IRON SUCROSE COMPLEX 400 MG in 0.9 % SODIUM CHLORIDE 250 ML IV ONE (13:45)
[2020-11-12 15:27] LABS: Prostate Specific Antigen 3.21 ng/mL (<6.50)
--- NOTE | 2020-11-12 16:18 | General Surgery Consult Note ---
HPI Data of Consult Primary Care Provider: Torsten Gill Consult Narrative Patient Information: Note initiated : 11/12/20 at 4:11 pm Service Date, if different from initiated Date: [] Patient: Sylvester Rogers 80 y/o M admitted on 11/11/20 for urinary issues. Chief Complaint: [] Chief complaint: Gross hematuria Reason for consult: Gross hematuria with anemia cc:: 80-year-old white male with history of BPH and urinary issues now reported had hematuria for the last year or so intermittently with clots Patient has seen urologist in [place] who had performed a cystoscopy with unknown results somewhere within the last year. Patient has had a catheter for 6 months last year as well and now has been having more frequency and urgency. He does have strong family history for cancer with sounds like his father with prostate cancer and mother with cervical cancer He relates has been on several different prostate medicines but has discontinued them--PSA previous to this visit reportedly in the 5.8 range PFSH PFSH All Active Problems Acute GI bleeding (Acute) Hematuria (Chronic) Muscle spasm of back (Chronic) Right knee pain (Chronic) Enlarged prostate without lower urinary tract symptoms (luts) (Chronic) Nontoxic thyroid nodule (Chronic) Right thigh pain (Chronic) Back pain (Chronic) Multiple rib fractures (Chronic) Benign prostatic hyperplasia (Chronic) Lumbar vertebral fracture (Chronic) Right femoral fracture (Chronic) Urinary retention (Chronic) Medical History Back pain Benign prostatic hyperplasia Enlarged prostate without lower urinary tract symptoms (luts) Hematuria Lumbar vertebral fracture Multiple rib fractures Muscle spasm of back Nontoxic thyroid nodule Right femoral fracture Right knee pain Right thigh pain Urinary retention Surgical History History of surgery Left Femur, "1960's or 1970's" Family History Mother Ovarian cancer Father Myocardial infarction Other Ischemic heart disease Social History household members: spouse marital status: alcohol intake frequency: holiday/special occasion only substance use type: does not use MEDS/ALLERGIES Home Medications and Allergies Home Medications Medication Instructions Recorded Confirmed Type aspirin [Aspir-81] 81 mg PO QDAY 11/11/20 11/11/20 History cholecalciferol (vitamin D3) 100 mcg PO QDAY 11/11/20 11/11/20 History [Vitamin D3] doxazosin 1 mg PO QHS 11/11/20 11/11/20 History saw palmetto-pumpkin seed oil 160 cap PO DAILY 11/11/20 11/11/20 History sildenafil 100 mg PO QDAY PRN 11/11/20 11/11/20 History Allergies Allergy/AdvReac Type Severity Reaction Status Date / Time Ether Allergy Mild Hives Verified 11/12/20 08:51 Penicillins Allergy Mild Hives Verified 11/12/20 08:51 melaleuca oil Allergy Mild Hives Uncoded 11/12/20 08:51 Physical Examination Vital Signs Vital signs: Temp Pulse Resp BP Pulse Ox 99.5 F H 73 16 108/78 95 11/12/20 12:01 11/12/20 14:00 11/12/20 08:01 11/12/20 14:00 11/12/20 14:00 Additional Findings Additional exam: Patient is well-developed pale appearing white male no acute distress presently undergoing bowel prep HEENT within normal limits Abdomen mildly obese no masses palpable Back no CVA tenderness Cardiac regular rhythm normal external genitalia--rectal deferred Musculoskeletal grossly normal Results Labs Result diagrams: 11/12/20 04:53 11/12/20 04:53 Labs: Abnormal lab results 11/11/20 11/12/20 11/12/20 Range/Units 14:06 04:53 04:53 RBC 3.89 L (4.50-5.90) M/mcL Hgb 7.7 L (13.5-16.5) g/dL Hct 27.3 L (41.0-55.0) % MCV 70.2 L (80.0-100.0) fL MCH 19.8 L (26.0-34.0) pg MCHC 28.2 L (31.0-36.0) g/dL RDW 20.5 H (11.5-14.5) % Lymph # (Auto) 1.16 L (1.50-4.80) K/mcL Chloride 110 H (96-108) mmol/L Anion Gap 6.0 L (8.0-16.0) Calcium 7.8 L (8.6-10.4) mg/dL Iron 10 L (61-157) ug/dL Transferrin % Sat 3 L (20-50) % Ferritin 9.7 L (30.0-400.0) ng/mL Diabetes panel 11/12/20 Range/Units 04:53 Sodium 141 (133-145) mmol/L Potassium 3.9 (3.3-5.1) mmol/L Chloride 110 H (96-108) mmol/L Carbon Dioxide 25 (22-30) mmol/L BUN 16 (8-23) mg/dL Creatinine 0.7 (0.7-1.2) mg/dL Glucose 94 (70-105) mg/dL Calcium 7.8 L (8.6-10.4) mg/dL AST 21 (<40) U/L ALT 11 (<40) U/L Alkaline Phosphatase 84 (39-117) U/L Total Protein 6.1 (5.9-8.4) gm/dL Albumin 3.2 (3.2-5.2) gm/dL Triglycerides 54 (<150) mg/dL Calcium panel 11/12/20 Range/Units 04:53 Calcium 7.8 L (8.6-10.4) mg/dL Phosphorus 2.7 (2.5-4.5) mg/dL Albumin 3.2 (3.2-5.2) gm/dL Pituitary panel 11/12/20 Range/Units 04:53 Sodium 141 (133-145) mmol/L Potassium 3.9 (3.3-5.1) mmol/L Chloride 110 H (96-108) mmol/L Carbon Dioxide 25 (22-30) mmol/L BUN 16 (8-23) mg/dL Creatinine 0.7 (0.7-1.2) mg/dL Glucose 94 (70-105) mg/dL Calcium 7.8 L (8.6-10.4) mg/dL Adrenal panel 11/12/20 Range/Units 04:53 Sodium 141 (133-145) mmol/L Potassium 3.9 (3.3-5.1) mmol/L Chloride 110 H (96-108) mmol/L Carbon Dioxide 25 (22-30) mmol/L BUN 16 (8-23) mg/dL Creatinine 0.7 (0.7-1.2) mg/dL Glucose 94 (70-105) mg/dL Calcium 7.8 L (8.6-10.4) mg/dL Total Bilirubin 0.8 (0.1-1.0) mg/dL AST 21 (<40) U/L ALT 11 (<40) U/L Alkaline Phosphatase 84 (39-117) U/L Total Protein 6.1 (5.9-8.4) gm/dL Albumin 3.2 (3.2-5.2) gm/dL All other labs normal. A/P Narrative A/P Narrative: Assessment: Gross hematuria unknown etiology with anemia more pronounced than would be likely for origin Try to obtain records from [facility] and with CT demonstrating some bladder wall thickening and proximal enlargement further evaluation of lower tract would be quite reasonable Agree with proceeding with GI evaluation as per Dr. Suárez Plan: Proceed with repeat PSA and await urine culture results Proceed with cystoscopy in conjunction with our procedures tomorrow. Continue with antibiotics as per hospitalist service Time Spent With Patient Time: Total time spent is greater than 50% in coordination of care (as documented) at patient's floor/unit and/or counseling patient: Total time spent with greater than 50% in coordination of care (as documented) at patient's floor/unit and/or counseling patient:: 15 - 24 minutes
[2020-11-12] MEDS: 0.9 % SODIUM CHLORIDE 1,000 ML IV SCH (16:37)
[2020-11-12] MEDS: SENNOSIDES/DOCUSATE SODIUM 1 TAB TABLET PO SCH (20:17)
[2020-11-12] MEDS: MELATONIN 3 MG TABLET PO PRN (20:17)
[2020-11-13] MEDS: 0.9 % SODIUM CHLORIDE 10 ML SYRINGE IV SCH ×5 (05:20→20:19)
[2020-11-13 06:58] LABS: Basophils # (Auto) 0.06 K/mcL (0.00-0.20); Basophils % (Auto) 0.9 % (0.0-2.0); Eosinophils # (Auto) 0.28 K/mcL (0.00-0.70); Hematocrit 27.4 % (41.0-55.0); Hemoglobin 7.6 g/dL (13.5-16.5); Lymphocytes # (Auto) 1.19 K/mcL (1.50-4.80); Lymphocytes % (Auto) 17.1 % (15.0-49.0); Mean Corpuscular HGB Conc 27.7 g/dL (31.0-36.0); Mean Platelet Volume 9.7 fL (7.4-10.4); Monocytes # (Auto) 0.68 K/mcL (0.10-0.90); Monocytes % (Auto) 9.8 % (1.0-12.0); Neutrophils % (Auto) 68.2 % (38.0-78.0); Platelet Count 327 K/mcL (140-440); RBC 3.86 M/mcL (4.50-5.90); Red Cell Distribution Width 21.1 % (11.5-14.5); WBC 6.9 K/mcL (4.5-11.0)
[2020-11-13] MEDS ORDERED: KETAMINE 50 MG/ML ML IV PRN (07:05)
[2020-11-13] MEDS ORDERED: PROPOFOL 200 MG/20 ML VIAL IV SCH (07:15)
[2020-11-13] MEDS ORDERED: MIDAZOLAM 2 MG/2 ML VIAL IV SCH (07:15)
[2020-11-13 07:35] LABS: ALT/SGPT 11 U/L (<40); AST/SGOT 17 U/L (<40); Albumin 3.2 gm/dL (3.2-5.2); Albumin/Globulin Ratio 1.1 (1.0-2.3); Alkaline Phosphatase 89 U/L (39-117); Bilirubin,Direct < 0.2 mg/dL (0-0.3); Bilirubin,Total 0.4 mg/dL (0.1-1.0); Blood Urea Nitrogen 10 mg/dL (8-23); Calcium 8.3 mg/dL (8.6-10.4); Carbon Dioxide 24 mmol/L (22-30); Chloride 105 mmol/L (96-108); Globulin 2.8 gm/dL (2.2-3.7); Glomerular Filtration Rate 85; Glucose 88 mg/dL (70-105); Lactate Dehydrogenase 176 U/L (135-225); Phosphorous 3.2 mg/dL (2.5-4.5); Triglycerides 75 mg/dL (<150); Uric Acid 4.7 mg/dL (2.5-8.0)
[2020-11-13] MEDS: PANTOPRAZOLE 40 MG VIAL IV SCH ×2 (07:45→17:45)
[2020-11-13 08:45] LABS: INR 1.1 (0.9-1.1); Partial Thromboplastin Time 31.5 sec (20.0-37.0); Prothrombin Time 15.2 sec (11.9-14.5)
[2020-11-13] MEDS: cefTRIAXone 2 GM in DEXTROSE 5% IN WATER 50 ML IV SCH (09:08)
[2020-11-13] MEDS: DOCUSATE SODIUM 100 MG CAPSULE PO SCH ×2 (09:10→20:18)
--- NOTE | 2020-11-13 12:32 | EGD Procedure Note ---
EGD Procedure Notes Procedure Information Patient information: Note initiated : 11/13/20 at 12:30 pm Service Date: 11/11/20 Patient: Sylvester Rogers 80 y/o M admitted on 11/11/20 for urinary issues. Pre-op diagnosis general: Hemoccult positive stools Post-Op Diagnosis general: Same, normal EGD Procedure: Esophogogastroduodenoscopy Procedure Narrative: After risk benefits and alternatives to the procedure were discussed with the patient at length he verbalized understanding and desire to continue with the procedure. Patient was taken to endoscopy. Conscious sedation was administered. Surgical timeout was taken before procedure to verify patient and procedure being p erformed. Adult gastroscope was entered through the mouth and directed under direct vision to the third portion of the duodenum. The examined portion of the duodenum was within normal limits. The stomach was within normal limits other than a small hiatal hernia. The scope was retroflexed which was only significant for a hiatal hernia. The entire examined esophagus was within normal limits. Assessment: Hiatal hernia, otherwise normal exam Image EGD: 1. Exam to duodenum 2. Retroflexion within normal limits other than hiatal hernia
[2020-11-13] MEDS ORDERED: LIDOCAINE HCL/PF 100 MG/5 ML SYRINGE IV ONE (12:33)
[2020-11-13] MEDS ORDERED: KETAMINE 50 MG/ML ML ONE (12:33)
[2020-11-13] MEDS ORDERED: PHENYLEPHRINE 10 MG/ML VIAL ONE (12:33)
[2020-11-13] MEDS ORDERED: PROPOFOL 200 MG/20 ML VIAL IV ONE (12:33)
[2020-11-13] MEDS ORDERED: GLYCOPYRROLATE 0.2 MG/ML VIAL IV ONE (12:33)
[2020-11-13] MEDS ORDERED: ONDANSETRON 4 MG/2 ML VIAL ONE (12:33)
[2020-11-13] MEDS ORDERED: fentaNYL 100 MCG/2 ML VIAL IV ONE (12:33)
[2020-11-13] MEDS ORDERED: DEXAMETHASONE 10 MG/ML VIAL ONE (12:33)
--- NOTE | 2020-11-13 12:35 | Colonoscopy Procedure Note ---
Colonoscopy Procedure Notes Procedure Information Patient information: Note initiated : 11/13/20 at 12:32 pm Service Date: 11/11/20 Patient: Sylvester Rogers 80 y/o M admitted on 11/11/20 for urinary issues. Pre-op diagnosis general: Hemoccult positive stools Post-op diagnosis general: Extensive diverticulosis, cecal mass Procedure: Colonoscopy with Bx Procedure narrative: After risk benefits and alternatives to the procedure were discussed with the patient at length he verbalized understanding and desire to continue with the procedure. Patient was taken endoscopy and conscious sedation was administered throughout the case. A surgical timeout was taken verify patient and procedure being performed. Digital rectal exam was performed prior to the procedure was within normal limits. Adult colonoscope was advanced under direct vision to the cecum which was identified by the hughes's foot and appendiceal orifice and the opening to the terminal ileum. In the cecum there was a 3 x 4 cm pedunculated mass, multiple biopsies were taken. The base of the mass was approximately 1 cm and too large to be removed endoscopically. The colon was fully examined on removal of the scope which was significant for extensive diverticulosis. Retroflexion in the rectum was within normal limits. Assessment: Cecal mass. Extensive diverticulosis. Further treatment pending biopsy results Image Colon: 1. Full exam of the colon 2. Retroflexion in the rectum was within normal limits 3. Extensive diverticulosis 4. Large cecal mass biopsies done
--- NOTE | 2020-11-13 13:00 | Operative Note ---
Operative Note Operative Note: Patient report--- date of service 13 November 2020 Preop diagnosis: Gross hematuria with bladder wall thickening and BPH Postop diagnosis: Same with likely resolving cystitis Operation performed: Cystoscopy and aspiration urine cytology Surgeon: Dr. Titi Faustin Anesthesia: Dr. Emerson with GLASS [employer]PERATOR coverage, type General Description: Patient had placement of general anesthesia and timeout performed. Patient was positioned in the dorsolithotomy position and prepped and draped in the usual fashion. Patient had the rigid cystoscope passed into the bladder under direct vision and no urethral anomalies were noted. Prostatic urethra showed trilobar hypertrophy with marked ball-valve configuration. Bladder showed trabeculation and cellule formation consistent with long-term outlet obstruction as well as significant debris present. Bladder was flushed clear of debris and mild resolving cystitis was noted to be present unlikely to be cancer related. Aspiration urine cytology was performed and sent for evaluation to evaluate malignancy potential. Both ureters were noted and appeared to be effluxing clear urine. Tissues were significantly friable consistent with inflammation and likely resolving infection. We will continue conservative management at this point and await urine cytology
[2020-11-13] MEDS ORDERED: ONDANSETRON 4 MG/2 ML VIAL IV PRN (13:07)
[2020-11-13] MEDS ORDERED: LACTATED RINGERS 250 ML IV PRN (13:07)
[2020-11-13] MEDS ORDERED: METHOCARBAMOL 1,000 MG/10 ML VIAL IV PRN (13:07)
[2020-11-13] MEDS ORDERED: IPRATROPIUM/ALBUTEROL 3 ML AMPUL.NEB NEB PRN (13:07)
[2020-11-13] MEDS ORDERED: BENZOCAINE/MENTHOL 1 LOZENGE PO PRN (13:07)
[2020-11-13] MEDS ORDERED: NALOXONE HCL 0.4 MG/ML VIAL IV PRN (13:07)
[2020-11-13] MEDS ORDERED: FLUMAZENIL 0.1 MG/ML ML IV PRN (13:07)
[2020-11-13] MEDS ORDERED: ACETAMINOPHEN 1,000 MG/100 ML BAG IV ONE (13:07)
[2020-11-13] MEDS ORDERED: LACTATED RINGERS 1,000 ML IV SCH (13:15)
--- NOTE | 2020-11-13 15:06 | General Surgery Progress Note ---
SUBJECTIVE Subjective Patient information: Note initiated : 11/13/20 at 3:04 pm Service Date, if different from initiated Date: [] Patient: Sylvester Rogers 80 y/o M admitted on 11/11/20 for urinary issues. Chief Complaint: [] Interval history: Status post EGD and colonoscopy today. Procedure is significant for cecal mass. Constitutional Vitals: Vital Signs Temp Pulse Resp BP Pulse Ox 97.2 F 74 16 112/75 96 11/13/20 13:35 11/13/20 14:00 11/13/20 14:00 11/13/20 14:00 11/13/20 14:00 Period Temp Pulse Resp BP Sys/Barrera Pulse Ox Last 24 Hr 97.2 F-99.1 F 63-83 9-26 95-133/55-83 86-100 Intake and Output 11/13/20 11/13/20 11/13/20 05:59 13:59 21:59 Intake Total 100 1050 Output Total 200 200 Balance -100 850 Intake & Output: Intake & Output 11/13/20 11/13/20 11/13/20 05:59 13:59 21:59 Intake Total 100 1050 Output Total 200 200 Balance -100 850 Intake: IV 150 Rocephin 2 gm In Dextrose 5% in 50 Water 50 ml @ 100 mls/hr IV Q24H [facility] Rx#:[id number] Oral 100 IV - Manual Only 900 Output: Void Amount 200 200 # of times incontinent of urine 0 Other: Urine Appearance Clear Clear Urine Color Light Hope Bright Yellow Urine Odor Normal # Bowel Movements 0 General appearance: cooperative and no acute distress Respiratory Respiratory exam: Present normal respiratory exam Cardiovascular Cardiovascular exam: Present normal rate and rhythm GI/Abdominal GI/Abdominal exam: Present normal bowel sounds and soft; Absent distended and tenderness A/P Narrative A/P Narrative: Long discussion with patient and his about findings, risk benefits and alternatives to waiting for biopsies versus repeat colonoscopies with piecemeal resection versus right hemicolectomy. They verbalizes understanding and all questions were answered. They desire to continue with a right hemicolectomy. We will schedule for exploratory laparotomy right hemicolectomy tomorrow. Time Spent With Patient Time: Total time spent is greater than 50% in coordination of care (as documented) at patient's floor/unit and/or counseling patient:
[2020-11-13] MEDS: 0.9 % SODIUM CHLORIDE 1,000 ML IV SCH (16:16)
[2020-11-13] MEDS: FOLIC ACID 1 MG TABLET PO SCH (16:17)
[2020-11-13] MEDS: HEPARIN 5,000 UNIT/ML VIAL SQ SCH ×2 (16:17→20:18)
[2020-11-13] MEDS: MULTIVIT,THER IRON,CA,FA & MIN 1 TABLET PO SCH (16:17)
[2020-11-13] MEDS: CYANOCOBALAMIN (VITAMIN B-12) 500 MCG TABLET PO SCH ×2 (16:18→20:18)
--- NOTE | 2020-11-13 17:23 | Internal Med Progress Note ---
SUBJECTIVE Subjective Patient information: Note initiated : 11/13/20 at 5:18 pm Service Date, if different from initiated Date: [] Patient: Sylvester Rogers a 80 y/o M admitted on 11/11/20 for urinary issues. Chief Complaint: [] Interval history: Mr. Rogers is a 80 year old M with history of hypertension/BPH who presents to the ER with progressive fatigue weakness difficulty urination over the last few days. He was evaluated at [facility], hemoglobin around 6.5, UA significant pyuria/hematuria. He was directed to the ER for further evaluation. Initial work-up in the ER was consistent with anemia however no evidence of acute bleed. surgery was consulted for evaluation. Patient was started on Protonix. Patient endorses to exertional shortness of breath and fatigue and malaise. He is unable to perform strenuous activities or climb a flight of stairs over the last couple of months. He denies black tarry stool/nausea/being on blood thinners or excessive alcohol use. He does endorse to brownish discoloration of urine/occasional bloody urine He lives with his and Ladd. Denies fever, chills, recent changes in medications, NSAID use 11/12-patient doing well. Status post units transfusion. Abdominal CT reveals thickened bladder/enlarged prostate. 4.2 cm gallstone. Ongoing prep for colonoscopy/EGD per surgery. Urology consulted for evaluation hematuria. Hemoglobin improved to 7.7 posttransfusion. Creatinine stable, serum iron 10 UA significant for hematuria/pyuria, urine cultures negative. 11/13-status post cystoscopy/colonoscopy and imaging consistent with cecal mass. Patient will undergo hemicolectomy in the next 24 hours. Seen postprocedure doing well. Will be n.p.o. after midnight. Stable labs and hemodynamics. No concerns expressed with nursing staff. Constitutional Vitals: Vital Signs Temp Pulse Resp BP Pulse Ox 97 F 76 16 113/76 94 11/13/20 16:01 11/13/20 16:01 11/13/20 16:01 11/13/20 16:01 11/13/20 16:01 Period Temp Pulse Resp BP Sys/Barrera Pulse Ox Last 24 Hr 97 F-99.1 F 63-83 9-26 95-133/55-83 86-100 Intake and Output 11/13/20 11/13/20 11/13/20 05:59 13:59 21:59 Intake Total 100 2050 Output Total 200 300 100 Balance -100 1750 -100 Alert oriented Nonlabored breathing Anxious Nontender abdomen Intake & Output: Intake & Output 11/13/20 11/13/20 11/13/20 05:59 13:59 21:59 Intake Total 100 2050 Output Total 200 300 100 Balance -100 1750 -100 Intake: IV 1150 Sodium Chloride 0.9% 1,000 ml @ 1000 50 mls/hr IV .Q20H [facility] Rx#: [id number] Rocephin 2 gm In Dextrose 5% in 50 Water 50 ml @ 100 mls/hr IV Q24H [facility] Rx#:[id number] Oral 100 IV - Manual Only 900 Output: Void Amount 200 300 100 # of times incontinent of urine 0 Other: Urine Appearance Clear Clear Urine Color Light Hope Tea Colored Light Hope Urine Odor Normal Normal # Voids 0 # Bowel Movements 0 OBJ DATA Labs CBC & Chem 7: 11/14/20 05:06 11/14/20 05:06 Labs: Abnormal Lab Results 11/13/20 11/13/20 11/13/20 08:04 05:02 05:01 RBC 3.86 L Hgb 7.6 L Hct 27.4 L MCV 71.0 L MCH 19.7 L MCHC 27.7 L RDW 21.1 H Lymph # (Auto) 1.19 L PT 15.2 H Chloride Anion Gap Glucose Calcium 8.3 L Iron Transferrin % Sat Ferritin Urine Appearance Urine Protein Urine Occult Blood Ur Leukocyte Esterase Urine RBC Urine WBC Calcium Oxalate Crystal Hyaline Casts Urine Mucus 11/12/20 11/12/20 11/11/20 04:53 04:53 14:06 RBC 3.89 L Hgb 7.7 L Hct 27.3 L MCV 70.2 L MCH 19.8 L MCHC 28.2 L RDW 20.5 H Lymph # (Auto) 1.16 L PT Chloride 110 H Anion Gap 6.0 L Glucose Calcium 7.8 L Iron 10 L Transferrin % Sat 3 L Ferritin 9.7 L Urine Appearance Urine Protein Urine Occult Blood Ur Leukocyte Esterase Urine RBC Urine WBC Calcium Oxalate Crystal Hyaline Casts Urine Mucus 11/11/20 11/11/20 11/11/20 14:06 14:06 13:47 RBC 3.58 L Hgb 6.5 L* Hct 24.6 L MCV 68.7 L MCH 18.2 L MCHC 26.4 L RDW 19.3 H Lymph # (Auto) 1.21 L PT Chloride Anion Gap Glucose 116 H Calcium 8.4 L Iron Transferrin % Sat Ferritin Urine Appearance Cloudy A Urine Protein 100 A Urine Occult Blood >=1.0 A Ur Leukocyte Esterase 500 A Urine RBC > 182 H Urine WBC > 182 H Calcium Oxalate Crystal Many A Hyaline Casts 6 H Urine Mucus Many A Meds: Medications Acetaminophen (Acetaminophen 325 Mg Tablet) 650 mg PO Q4-6HP PRN; Protocol PRN Reason: Per Pain Protocol/Fever > 101 Last Admin: 11/12/20 03:22 Dose: 650 mg Documented by: Bisacodyl (Bisacodyl 10 Mg Supp.Rect) 10 mg CO Q2-3DAYS PRN PRN Reason: Constipation Cyanocobalamin (Cyanocobalamin (Vitamin B-12) 500 Mcg Tablet) 1,000 mcg PO BID [facility] Stop: 11/16/20 09:01 Last Admin: 11/13/20 16:18 Dose: Not Given Documented by: Docusate Sodium (Docusate Sodium 100 Mg Capsule) 100 mg PO BID [facility] Last Admin: 11/13/20 09:10 Dose: Not Given Documented by: Folic Acid (Folic Acid 1 Mg Tablet) 1 mg PO DAILY [facility] Last Admin: 11/13/20 16:17 Dose: Not Given Documented by: Heparin Sodium (Porcine) (Heparin 5,000 Unit/Ml Vial) 5,000 unit SQ Q12 [facility] Last Admin: 11/13/20 16:17 Dose: Not Given Documented by: Potassium Chloride 40 meq/ (Dextrose) 520 mls @ 130 mls/hr IV UD PRN PRN Reason: K+ = or < 3.5 Acetaminophen (Ofirmev) 650 mg in 65 mls @ 130 mls/hr IV Q6HP PRN; Protocol PRN Reason: Per Pain Protocol/Fever > 101 Magnesium Sulfate (Magnesium Sulfate) 2 gm in 50 mls @ 50 mls/hr IV UD PRN PRN Reason: MG = or < 1.7 Sodium Chloride (Sodium Chloride 0.9%) 1,000 mls @ 50 mls/hr IV .Q20H [facility] Stop: 11/14/20 06:20 Last Admin: 11/13/20 16:16 Dose: 50 mls/hr Documented by: Ceftriaxone Sodium 2 gm/ (Dextrose) 50 mls @ 100 mls/hr IV Q24H [facility]; Protocol Last Infusion: 11/13/20 09:38 Dose: Infused Documented by: Iron Carb/Multivit/Haswell/Folic Acid (Multivit,Ther Iron,Ca,Fa & Min 1 Tablet) 1 tab PO DAILY [facility] Last Admin: 11/13/20 16:17 Dose: Not Given Documented by: Melatonin (Melatonin 3 Mg Tablet) 3 mg PO HSP PRN PRN Reason: Insomnia Last Admin: 11/12/20 20:17 Dose: 3 mg Documented by: Ondansetron HCl (Ondansetron 4 Mg Odt Tablet) 4 mg SL Q4-6HP PRN; Protocol PRN Reason: Nausea And Vomiting Ondansetron HCl (Ondansetron 4 Mg/2 Ml Vial) 4 mg IV Q4-6HP PRN; Protocol PRN Reason: Nausea And Vomiting Pantoprazole Sodium (Pantoprazole 40 Mg Vial) 40 mg IV BIDAC [facility] Last Admin: 11/13/20 07:45 Dose: 40 mg Documented by: Polyethylene Glycol (Polyethylene Glycol 3350 17 Gm Packet) 17 gm PO DAILYP PRN PRN Reason: Constipation Senna/Docusate Sodium (Sennosides/Docusate Sodium 1 Tab Tablet) 1 tab PO HS [facility] Last Admin: 11/12/20 20:17 Dose: Not Given Documented by: Sodium Chloride (0.9 % Sodium Chloride 10 Ml Syringe) 10 ml IV Q8 [facility] Last Admin: 11/13/20 16:18 Dose: Not Given Documented by: Sodium Chloride (0.9 % Sodium Chloride 10 Ml Syringe) 10 ml IV Q8 [facility] Last Admin: 11/13/20 16:18 Dose: Not Given Documented by: A/P Narrative A/P Narrative: * Anemia likely secondary to blood loss. Status post 2 units PRBC. Status post upper and lower endoscopy * Cecal mass -surgery on board. Will undergo hemicolectomy in a.m. * Hematuria/Bladder outlet obstruction/complicated UTI status post cystoscopy. Urology managing * Prophylax Heparin Plan * Continue antibiotics * Pre-existing medical condition management home meds * NPO after midnight Time Spent With Patient Time: Total time spent is greater than 50% in coordination of care (as d ocumented) at patient's floor/unit and/or counseling patient: QUALITY Stroke Symptom Onset Unknown: No VTE Deep Vein Thrombosis/Pulmonary Embolism Present on Admission: No
[2020-11-13] MEDS ORDERED: TAMSULOSIN 0.4 MG CAPSULE PO ONE (17:41)
[2020-11-13] MEDS: ACETAMINOPHEN 325 MG TABLET PO PRN (18:48)
[2020-11-13] MEDS: SENNOSIDES/DOCUSATE SODIUM 1 TAB TABLET PO SCH (20:18)
[2020-11-13] MEDS: MELATONIN 3 MG TABLET PO PRN (20:18)
[2020-11-13] MEDS ORDERED: PHENAZOPYRIDINE 200 MG TABLET PO ONE (20:50)
[2020-11-14] MEDS: 0.9 % SODIUM CHLORIDE 10 ML SYRINGE IV SCH ×6 (06:00→21:21)
[2020-11-14 07:01] LABS: Basophils # (Auto) 0.01 K/mcL (0.00-0.20); Basophils % (Auto) 0.1 % (0.0-2.0); Eosinophils # (Auto) 0 K/mcL (0.00-0.70); Eosinophils % (Auto) 0 % (0.0-7.0); Hemoglobin 7.7 g/dL (13.5-16.5); Lymphocytes # (Auto) 0.91 K/mcL (1.50-4.80); Lymphocytes % (Auto) 10.2 % (15.0-49.0); Mean Cell Volume 72.4 fL (80.0-100.0); Mean Corpuscular HGB Conc 27.5 g/dL (31.0-36.0); Mean Platelet Volume 10.5 fL (7.4-10.4); Monocytes # (Auto) 0.61 K/mcL (0.10-0.90); Monocytes % (Auto) 6.8 % (1.0-12.0); Neutrophils % (Auto) 82.9 % (38.0-78.0); Platelet Count 347 K/mcL (140-440); RBC 3.87 M/mcL (4.50-5.90); Red Cell Distribution Width 21.9 % (11.5-14.5)
[2020-11-14] MEDS: PANTOPRAZOLE 40 MG VIAL IV SCH ×2 (07:29→18:09)
[2020-11-14 07:33] LABS: ALT/SGPT 11 U/L (<40); AST/SGOT 17 U/L (<40); Albumin 3.3 gm/dL (3.2-5.2); Albumin/Globulin Ratio 1.1 (1.0-2.3); Alkaline Phosphatase 86 U/L (39-117); Bilirubin,Direct < 0.2 mg/dL (0-0.3); Bilirubin,Total 0.3 mg/dL (0.1-1.0); Blood Urea Nitrogen 9 mg/dL (8-23); Calcium 8.6 mg/dL (8.6-10.4); Carbon Dioxide 24 mmol/L (22-30); Chloride 108 mmol/L (96-108); Globulin 2.9 gm/dL (2.2-3.7); Glomerular Filtration Rate 85; Glucose 106 mg/dL (70-105); Lactate Dehydrogenase 161 U/L (135-225); Phosphorous 4.5 mg/dL (2.5-4.5); Triglycerides 55 mg/dL (<150); Uric Acid 5.1 mg/dL (2.5-8.0)
[2020-11-14] MEDS: DOCUSATE SODIUM 100 MG CAPSULE PO SCH (07:53)
[2020-11-14] MEDS: FOLIC ACID 1 MG TABLET PO SCH (07:53)
[2020-11-14] MEDS: HEPARIN 5,000 UNIT/ML VIAL SQ SCH ×2 (07:54→21:28)
[2020-11-14] MEDS: MULTIVIT,THER IRON,CA,FA & MIN 1 TABLET PO SCH (07:54)
[2020-11-14] MEDS: CYANOCOBALAMIN (VITAMIN B-12) 500 MCG TABLET PO SCH ×2 (07:55→21:15)
[2020-11-14] MEDS: cefTRIAXone 2 GM in DEXTROSE 5% IN WATER 50 ML IV SCH (08:00)
[2020-11-14] MEDS ORDERED: ALBUMIN HUMAN 25 GM/100 ML BAG IV ONE (08:15)
[2020-11-14] MEDS ORDERED: LIDOCAINE HCL/PF 100 MG/5 ML SYRINGE IV ONE (08:15)
[2020-11-14] MEDS ORDERED: MAGNESIUM SULFATE 2 GM/50 ML BAG IV ONE (08:15)
[2020-11-14] MEDS ORDERED: ROCURONIUM 10 MG/ML ML IV ONE (08:15)
[2020-11-14] MEDS ORDERED: DEXAMETHASONE 10 MG/ML VIAL ONE (08:15)
[2020-11-14] MEDS ORDERED: GLYCOPYRROLATE 0.2 MG/ML VIAL IV ONE (08:15)
[2020-11-14] MEDS ORDERED: PROPOFOL 200 MG/20 ML VIAL IV ONE (08:15)
[2020-11-14] MEDS ORDERED: fentaNYL 100 MCG/2 ML VIAL IV ONE (08:15)
[2020-11-14] MEDS ORDERED: KETAMINE 50 MG/ML ML ONE (08:15)
[2020-11-14] MEDS ORDERED: MIDAZOLAM 2 MG/2 ML VIAL ONE (08:15)
[2020-11-14] MEDS ORDERED: SUGAMMADEX SODIUM 200 MG/2 ML VIAL IV ONE (08:15)
[2020-11-14] MEDS ORDERED: SUCCINYLCHOLINE 20 MG/ML ML IV ONE (08:15)
[2020-11-14] MEDS ORDERED: PHENYLEPHRINE 10 MG/ML VIAL ONE (08:15)
[2020-11-14] MEDS ORDERED: ONDANSETRON 4 MG/2 ML VIAL ONE (08:15)
[2020-11-14] MEDS ORDERED: LACTATED RINGERS 250 ML IV PRN (09:02)
[2020-11-14] MEDS ORDERED: NALOXONE HCL 0.4 MG/ML VIAL IV PRN (09:02)
[2020-11-14] MEDS ORDERED: IPRATROPIUM/ALBUTEROL 3 ML AMPUL.NEB NEB PRN (09:02)
[2020-11-14] MEDS ORDERED: ONDANSETRON 4 MG/2 ML VIAL IV PRN ×2 (09:02→12:40)
[2020-11-14] MEDS ORDERED: FLUMAZENIL 0.1 MG/ML ML IV PRN (09:02)
[2020-11-14] MEDS ORDERED: LABETALOL 5 MG/ML ML IV PRN (09:02)
[2020-11-14] MEDS ORDERED: ACETAMINOPHEN 1,000 MG/100 ML BAG IV ONE (09:02)
[2020-11-14] MEDS ORDERED: METHOCARBAMOL 1,000 MG/10 ML VIAL IV PRN (09:02)
[2020-11-14] MEDS ORDERED: METOPROLOL TARTRATE 5 MG/5 ML VIAL IV PRN (09:02)
[2020-11-14] MEDS ORDERED: BENZOCAINE/MENTHOL 1 LOZENGE PO PRN (09:02)
[2020-11-14] MEDS ORDERED: LACTATED RINGERS 1,000 ML IV SCH (09:15)
[2020-11-14] MEDS: ALBUMIN HUMAN 25 GM/100 ML BAG IV ONE ×2 (09:40→12:44)
--- NOTE | 2020-11-14 09:40 | Operative Note ---
Brief Operative Note Date of procedure: 11/14/20 Pre-op diagnosis: Cecal mass Post-op diagnosis: same Procedure: Right hemicolectomy Grafts/Implants: No Anesthesia: GETA Findings: Cecal mass Complications: none Surgeon: Sahil Suárez Estimated blood loss (cc): 25 Specimens Removed/Pathology: other (Right hemicolectomy) Condition: stable Disposition: PACU Operative Note Operative Note: After risk benefits and alternatives to the procedure were discussed with the patient at length he verbalized understanding desire to continue with the procedure. Patient was taken main operating place upon the operative table. General anesthesia was induced over endotracheal tube. Patient's prepped and draped in the standard sterile surgical fashion. Surgical timeout was taken to verify patient and procedure being performed. Upper midline incision was made carried down through skin and subcutaneous tissue. Abdominal cavity was entered under direct vision and exploration showed a right cecal mass. The right line of Toldt's was carefully taken down to fully mobilize the ascending colon this was carried around to mobilize the hepatic flexure this was done with blunt and electrocautery dissection. Once the right colon to the mid transverse colon was fully mobilized the duodenum was also identified during the mobilization and kept out of the field of operation. The colon was then transected approximately 10 cm proximal to the mass and the small bowel was transected approximately 10 cm from the terminal ileum. The mesentery was taken down with the buoyant device and passed off the field for surgical pathology. Attention was turned back where hemostasis was ensured in the mesentery with interrupted 3-0 Vicryl sutures. The area was copiously irrigated and all irrigant was suctioned free from the abdominal cavity. A [id number] functional end-to-end stapled anastomosis was then performed. This was done between the small bowel and the transverse colon and the enterotomy was closed with a running 3-0 Prolene suture. Interrupted 3-0 Vicryl sutures were used to close the mesentery and oversewed the device. The bowel was returned to its anatomical position the abdominal cavity was irrigated and all areas was suctioned free until it was clear. The midline defect was then closed with a running looped 0 PDS suture. Skin was closed with surgical [place]. Xeroform 4 x 4 and tape dressings were applied. The patient was then awakened from anesthesia transported postanesthesia care unit awake alert in good condition.
[2020-11-14] MEDS: fentaNYL 100 MCG/2 ML VIAL IV PRN ×8 (09:56→12:15)
[2020-11-14] MEDS ORDERED: HYDROmorphone 0.5 MG/0.5 ML SYRINGE IV ONE (10:01)
[2020-11-14] MEDS ORDERED: POTASSIUM CHLORIDE 40 MEQ in DEXTROSE 5% IN WATER 500 ML IV PRN (12:40)
[2020-11-14] MEDS ORDERED: MAGNESIUM SULFATE 2 GM/50 ML BAG IV PRN (12:40)
[2020-11-14] MEDS ORDERED: MELATONIN 3 MG TABLET PO PRN (12:40)
[2020-11-14] MEDS ORDERED: ONDANSETRON 4 MG ODT TABLET SL PRN (12:40)
--- NOTE | 2020-11-14 12:40 | XRay Report ---
CLINICAL INFORMATION: hypoxia COMPARISON: 11/14/2020 FINDINGS: NG tube overlies the gastric body. The heart is mildly enlarged but stable. Mediastinum and pulmonary vessels normal. Is minor bibasilar atelectasis. IMPRESSION: NG tube overlies the gastric body Mild cardiomegaly and minimal bibasilar atelectasis Interpreted and Authenticated by: Rl Leger 11/14/20
--- NOTE | 2020-11-14 12:55 | Internal Med Progress Note ---
SUBJECTIVE Subjective Patient information: Note initiated : 11/14/20 at 12:49 pm Service Date, if different from initiated Date: [] Patient: Sylvester Rogers a 80 y/o M admitted on 11/11/20 for urinary issues. Chief Complaint: [] Interval history: Mr. Rogers is a 80 year old M with history of hypertension/BPH who presents to the ER with progressive fatigue weakness difficulty urination over the last few days. He was evaluated at [place] [facility], hemoglobin around 6.5, UA significant pyuria/hematuria. He was directed to the ER for further evaluation. Initial work-up in the ER was consistent with anemia however no evidence of acute bleed. surgery was consulted for evaluation. Patient was started on Protonix. Patient endorses to exertional shortness of breath and fatigue and malaise. He is unable to perform strenuous activities or climb a flight of stairs over the last couple of months. He denies black tarry stool/nausea/being on blood thinners or excessive alcohol use. He does endorse to brownish discoloration of urine/occasional bloody urine He lives with his and [place]. Denies fever, chills, recent changes in medications, NSAID use 11/12-patient doing well. Status post units transfusion. Abdominal CT reveals thickened bladder/enlarged prostate. 4.2 cm gallstone. Ongoing prep for colonoscopy/EGD per surgery. Urology consulted for evaluation hematuria. Hemoglobin improved to 7.7 posttransfusion. Creatinine stable, serum iron 10 UA significant for hematuria/pyuria, urine cultures negative. 11/13-status post cystoscopy/colonoscopy and imaging consistent with cecal mass. Patient will undergo hemicolectomy in the next 24 hours. Seen postprocedure doing well. Will be n.p.o. after midnight. Stable labs and hemodynamics. No concerns expressed with nursing staff. 11/14-patient status post hemicolectomy. Postoperatively noted to be profoundly hypoxic requiring 10 L oxygen maintaining sats low 80s. Stat x-ray bibasilar atelectasis. Transfer to ICU. Use noninvasive ventilation/mechanical ventilation if indicated and worsening respiratory status. Critically ill postoperative status. On NG decompression. Constitutional Vitals: Vital Signs Temp Pulse Resp BP Pulse Ox 97.1 F 93 H 25 H 125/69 90 11/14/20 11:22 11/14/20 11:55 11/14/20 11:55 11/14/20 11:55 11/14/20 11:55 Period Temp Pulse Resp BP Sys/Barrera Pulse Ox Last 24 Hr 97 F-98.6 F 69-96 9-34 96-149/58-92 88-100 Intake and Output 11/13/20 11/14/20 11/14/20 21:59 05:59 13:59 Intake Total 186 970 9393 Output Total 925 550 500 Balance -445 -125 1025 Weight 114.033 kg sedated post procedure Labored breathing on 6 L oxygen sats low 90s Diminished breath sounds bases Postoperative abdomen Intake & Output: Intake & Output 11/13/20 11/14/20 11/14/20 21:59 05:59 13:59 Intake Total 871 415 7977 Output Total 925 550 500 Balance -445 -125 1025 Weight 114.033 kg Intake: IV 125 Rocephin 2 gm In Dextrose 5% in 25 Water 50 ml @ 100 mls/hr IV Q24H [facility] Rx#:[id number] Oral 480 425 IV - Manual Only 1400 Output: Void Amount 925 550 450 Estimated Blood Loss 50 Other: Meal Dinner Percent of Meal Consumed 100% Feeding Ability Independent Urine Appearance Clear Clear Hematuria Hematuria Urine Color Light Hope Dark Hope [place] Urine Odor Normal Normal Strong # Bowel Movements 0 OBJ DATA Labs CBC & Chem 7: 11/14/20 05:06 11/14/20 05:06 Labs: Abnormal Lab Results 11/14/20 11/14/20 11/13/20 05:06 05:06 08:04 RBC 3.87 L Hgb 7.7 L Hct 28.0 L MCV 72.4 L MCH 19.9 L MCHC 27.5 L RDW 21.9 H MPV 10.5 H Neut % (Auto) 82.9 H Lymph % (Auto) 10.2 L Lymph # (Auto) 0.91 L PT 15.2 H Chloride Anion Gap Glucose 106 H Calcium Iron Transferrin % Sat Ferritin Urine Appearance Urine Protein Urine Occult Blood Ur Leukocyte Esterase Urine RBC Urine WBC Calcium Oxalate Crystal Hyaline Casts Urine Mucus 11/13/20 11/13/20 11/12/20 05:02 05:01 04:53 RBC 3.86 L Hgb 7.6 L Hct 27.4 L MCV 71.0 L MCH 19.7 L MCHC 27.7 L RDW 21.1 H MPV Neut % (Auto) Lymph % (Auto) Lymph # (Auto) 1.19 L PT Chloride 110 H Anion Gap 6.0 L Glucose Calcium 8.3 L 7.8 L Iron Transferrin % Sat Ferritin Urine Appearance Urine Protein Urine Occult Blood Ur Leukocyte Esterase Urine RBC Urine WBC Calcium Oxalate Crystal Hyaline Casts Urine Mucus 11/12/20 11/11/20 11/11/20 04:53 14:06 14:06 RBC 3.89 L Hgb 7.7 L Hct 27.3 L MCV 70.2 L MCH 19.8 L MCHC 28.2 L RDW 20.5 H MPV Neut % (Auto) Lymph % (Auto) Lymph # (Auto) 1.16 L PT Chloride Anion Gap Glucose 116 H Calcium 8.4 L Iron 10 L Transferrin % Sat 3 L Ferritin 9.7 L Urine Appearance Urine Protein Urine Occult Blood Ur Leukocyte Esterase Urine RBC Urine WBC Calcium Oxalate Crystal Hyaline Casts Urine Mucus 11/11/20 11/11/20 14:06 13:47 RBC 3.58 L Hgb 6.5 L* Hct 24.6 L MCV 68.7 L MCH 18.2 L MCHC 26.4 L RDW 19.3 H MPV Neut % (Auto) Lymph % (Auto) Lymph # (Auto) 1.21 L PT Chloride Anion Gap Glucose Calcium Iron Transferrin % Sat Ferritin Urine Appearance Cloudy A Urine Protein 100 A Urine Occult Blood >=1.0 A Ur Leukocyte Esterase 500 A Urine RBC > 182 H Urine WBC > 182 H Calcium Oxalate Crystal Many A Hyaline Casts 6 H Urine Mucus Many A Meds: Medications Cyanocobalamin (Cyanocobalamin (Vitamin B-12) 500 Mcg Tablet) 1,000 mcg PO BID [facility] Stop: 11/16/20 09:01 Heparin Sodium (Porcine) (Heparin 5,000 Unit/Ml Vial) 5,000 unit SQ Q12 [facility] Acetaminophen (Ofirmev) 650 mg in 65 mls @ 130 mls/hr IV Q6HP PRN; Protocol PRN Reason: Per Pain Protocol/Fever > 101 Ceftriaxone Sodium 2 gm/ (Dextrose) 50 mls @ 100 mls/hr IV Q24H KIRSTY; Protocol Magnesium Sulfate (Magnesium Sulfate) 2 gm in 50 mls @ 50 mls/hr IV UD PRN PRN Reason: MG = or < 1.7 Potassium Chloride 40 meq/ (Dextrose) 520 mls @ 130 mls/hr IV UD PRN PRN Reason: K+ = or < 3.5 Iron Carb/Multivit/Credit Reporting Clerk/Folic Acid (Multivit,Ther Iron,Ca,Fa & Min 1 Tablet) 1 tab PO DAILY [facility] Melatonin (Melatonin 3 Mg Tablet) 3 mg PO HSP PRN PRN Reason: Insomnia Ondansetron HCl (Ondansetron 4 Mg Odt Tablet) 4 mg SL Q4-6HP PRN; Protocol PRN Reason: Nausea And Vomiting Ondansetron HCl (Ondansetron 4 Mg/2 Ml Vial) 4 mg IV Q4-6HP PRN; Protocol PRN Reason: Nausea And Vomiting Pantoprazole Sodium (Pantoprazole 40 Mg Vial) 40 mg IV BIDAC K[facility]Y Sodium Chloride (0.9 % Sodium Chloride 10 Ml Syringe) 10 ml IV Q8 [facility] Sodium Chloride (0.9 % Sodium Chloride 10 Ml Syringe) 10 ml IV Q8 [facility] Tamsulosin HCl (Tamsulosin 0.4 Mg Capsule) 0.4 mg PO HS [facility] A/P Narrative A/P Narrative: * Cecal mass status post right hemicolectomy-immediate postop, managed per surgery * Acute hypoxic respiratory failure, possibly aspiration versus postop hypoventilation. Continue close monitoring/ICU care/high flow oxygen/noninvasive ventilation if indicated * Anemia likely secondary to blood loss. Status post 2 units PRBC. Severely iron deficiency with ferritin 9, hemoglobin 7.7. Additional 2 units PRBC transfusion in 24 hours * Hematuria/Bladder outlet obstruction/complicated UTI status post cystoscopy. Able to self void . urology managing * Prophylax Heparin Plan * Transfer to ICU * High flow oxygen/noninvasive ventilation if indicated * Aggressive pulmonary toilet * Postop care per surgery * 2 units PRBC transfusion * Therapies as tolerated Time Spent With Patient Time: Critical care time spent in excess of 35 minutes on management of postoperative hypoxia spray failure QUALITY Stroke Symptom Onset Unknown: No VTE Deep Vein Thrombosis/Pulmonary Embolism Present on Admission: No
[2020-11-14] MEDS ORDERED: morphine 4 MG/ML VIAL IV PRN (14:09)
[2020-11-14] MEDS: HYDROmorphone 0.5 MG/0.5 ML SYRINGE IV PRN ×2 (16:50→20:23)
[2020-11-14] MEDS ORDERED: LORazepam 2 MG/ML VIAL ONE (20:22)
[2020-11-14] MEDS ORDERED: TAMSULOSIN 0.4 MG CAPSULE PO SCH (21:00)
[2020-11-14] MEDS: TAMSULOSIN 0.4 MG CAPSULE PO SCH (21:14)
[2020-11-15] MEDS: HYDROmorphone 0.5 MG/0.5 ML SYRINGE IV PRN ×2 (02:34→19:23)
[2020-11-15] MEDS: 0.9 % SODIUM CHLORIDE 10 ML SYRINGE IV SCH ×7 (06:24→21:27)
[2020-11-15 07:23] LABS: Basophils # (Auto) 0.02 K/mcL (0.00-0.20); Basophils % (Auto) 0.2 % (0.0-2.0); Eosinophils # (Auto) 0 K/mcL (0.00-0.70); Eosinophils % (Auto) 0 % (0.0-7.0); Hematocrit 27.8 % (41.0-55.0); Hemoglobin 7.5 g/dL (13.5-16.5); Lymphocytes # (Auto) 1.07 K/mcL (1.50-4.80); Lymphocytes % (Auto) 8.9 % (15.0-49.0); Mean Cell Volume 74.1 fL (80.0-100.0); Mean Platelet Volume 9.9 fL (7.4-10.4); Monocytes % (Auto) 8.3 % (1.0-12.0); Neutrophils % (Auto) 82.6 % (38.0-78.0); Platelet Count 331 K/mcL (140-440); RBC 3.75 M/mcL (4.50-5.90); Red Cell Distribution Width 23.2 % (11.5-14.5)
[2020-11-15] MEDS: PANTOPRAZOLE 40 MG VIAL IV SCH ×2 (07:35→17:34)
[2020-11-15 07:44] LABS: ALT/SGPT 16 U/L (<40); AST/SGOT 20 U/L (<40); Albumin 3.5 gm/dL (3.2-5.2); Albumin/Globulin Ratio 1.3 (1.0-2.3); Alkaline Phosphatase 79 U/L (39-117); Bilirubin,Direct < 0.2 mg/dL (0-0.3); Bilirubin,Total 0.3 mg/dL (0.1-1.0); Blood Urea Nitrogen 16 mg/dL (8-23); Calcium 8.5 mg/dL (8.6-10.4); Carbon Dioxide 25 mmol/L (22-30); Chloride 103 mmol/L (96-108); Globulin 2.8 gm/dL (2.2-3.7); Glomerular Filtration Rate 81; Glucose 99 mg/dL (70-105); Lactate Dehydrogenase 181 U/L (135-225); Phosphorous 2.9 mg/dL (2.5-4.5); Triglycerides 78 mg/dL (<150); Uric Acid 5.3 mg/dL (2.5-8.0)
[2020-11-15] MEDS: ACETAMINOPHEN 650 MG/65 ML BAG IV PRN ×3 (07:51→21:28)
[2020-11-15] MEDS: CYANOCOBALAMIN (VITAMIN B-12) 500 MCG TABLET PO SCH ×2 (08:29→21:25)
[2020-11-15] MEDS: MULTIVIT,THER IRON,CA,FA & MIN 1 TABLET PO SCH (08:29)
[2020-11-15] MEDS: cefTRIAXone 2 GM in DEXTROSE 5% IN WATER 50 ML IV SCH (08:38)
[2020-11-15] MEDS: HEPARIN 5,000 UNIT/ML VIAL SQ SCH ×2 (08:39→21:16)
--- NOTE | 2020-11-15 10:08 | General Surgery Progress Note ---
SUBJECTIVE Subjective Patient information: Note initiated : 11/15/20 at 10:07 am Service Date, if different from initiated Date: [] Patient: Sylvester Rogers 80 y/o M admitted on 11/11/20 for urinary issues. Chief Complaint: [] Interval history: Postoperative day #1 status post right hemicolectomy for cecal mass. Overnight patient having difficulty maintaining saturations, was transferred to the ICU for further respiratory care. This morning he says he feels much better, is saturating in the 90s on 6 L O2. He has been able to get out of bed to urinate, has no nausea vomiting and minimal NG tube output. Constitutional Vitals: Vital Signs Temp Pulse Resp BP Pulse Ox 98.6 F 84 21 130/75 92 11/15/20 08:01 11/15/20 00:22 11/15/20 08:01 11/15/20 08:01 11/15/20 08:01 Period Temp Pulse Resp BP Sys/Barrera Pulse Ox Last 24 Hr 97.0 F-99.9 F 81-96 11-30 105-141/62-88 88-96 Intake and Output 11/14/20 11/15/20 11/15/20 21:59 05:59 13:59 Intake Total 0 115 Output Total 275 250 Balance -275 -250 115 Weight 247 lb 8 oz Intake & Output: Intake & Output 11/14/20 11/15/20 11/15/20 21:59 05:59 13:59 Intake Total 0 115 Output Total 275 250 Balance -275 -250 115 Weight 247 lb 8 oz Intake: IV 115 Rocephin 2 gm In Dextrose 5% in 50 Water 50 ml @ 100 mls/hr IV Q24H [facility] Rx#:[id number] Tube Feeding 0 Output: Void Amount 275 250 Other: Urine Appearance Clear Clear Sediment Urine Color Dark Hope Dark Hope [place] Urine Odor Strong Strong # Bowel Movements 0 General appearance: cooperative and no acute distress GI/Abdominal GI/Abdominal exam: Present soft and tenderness (Appropriately tender to palpation); Absent distended Additional comments: Incision is dressed A/P Narrative A/P Narrative: Postoperatively doing as expected postop day #1. DC NG tube, clear liquid diet. Ambulate in the hallway minimum 3 times daily. Time Spent With Patient Time: Total time spent is greater than 50% in coordination of care (as documented) at patient's floor/unit and/or counseling patient:
--- NOTE | 2020-11-15 11:10 | General Surgery Progress Note ---
SUBJECTIVE Subjective Patient information: Note initiated : 11/15/20 at 11:07 am Service Date, if different from initiated Date: [] Patient: Sylvester Rogers 80 y/o M admitted on 11/11/20 for urinary issues. Chief Complaint: [] Interval history: Patient doing well urologically this morning and able to void Dr. Suárez's note noted and agree with assessment Constitutional Vitals: Vital Signs Temp Pulse Resp BP Pulse Ox 98.6 F 84 25 H 125/81 94 11/15/20 08:01 11/15/20 00:22 11/15/20 10:01 11/15/20 10:01 11/15/20 10:01 Period Temp Pulse Resp BP Sys/Barrera Pulse Ox Last 24 Hr 97.1 F-99.9 F 81-96 11-30 105-141/62-88 90-96 Intake and Output 11/14/20 11/15/20 11/15/20 21:59 05:59 13:59 Intake Total 0 115 Output Total 275 250 Balance -275 -250 115 Weight 247 lb 8 oz Intake & Output: Intake & Output 11/14/20 11/15/20 11/15/20 21:59 05:59 13:59 Intake Total 0 115 Output Total 275 250 Balance -275 -250 115 Weight 247 lb 8 oz Intake: IV 115 Rocephin 2 gm In Dextrose 5% in 50 Water 50 ml @ 100 mls/hr IV Q24H [facility] Rx#:[id number] Oral 0 Tube Feeding 0 Output: Void Amount 275 250 Other: Urine Appearance Clear Clear Sediment Urine Color Dark Hope Dark Hope [place] Urine Odor Strong Strong # Bowel Movements 0 Additional findings Additional findings: Patient alert oriented cooperative and able to get out of bed with voiding Breathing comfortably and discomfort consistent with his recent abdominal yadira primo A/P Narrative A/P Narrative: Assessment: Doing well voiding at present Cytology still pending and urine culture preliminary no growth albeit on antibiotic regimen Plan: We will recheck postvoid residual to assure no significant residual urine noted and await final lab results Time Spent With Patient Time: Total time spent is greater than 50% in coordination of care (as documented) at patient's floor/unit and/or counseling patient:
--- NOTE | 2020-11-15 11:26 | Internal Med Progress Note ---
SUBJECTIVE Subjective Patient information: Note initiated : 11/15/20 at 11:20 am Service Date, if different from initiated Date: [] Patient: Sylvester Rogers a 80 y/o M admitted on 11/11/20 for urinary issues. Chief Complaint: [] Interval history: Mr. Rogers is a 80 year old M with history of hypertension/BPH who presents to the ER with progressive fatigue weakness difficulty urination over the last few days. He was evaluated at [place] [facility], hemoglobin around 6.5, UA significant pyuria/hematuria. He was directed to the ER for further evaluation. Initial work-up in the ER was consistent with anemia however no evidence of acute bleed. surgery was consulted for evaluation. Patient was started on Protonix. Patient endorses to exertional shortness of breath and fatigue and malaise. He is unable to perform strenuous activities or climb a flight of stairs over the last couple of months. He denies black tarry stool/nausea/being on blood thinners or excessive alcohol use. He does endorse to brownish discoloration of urine/occasional bloody urine He lives with his and [place]. Denies fever, chills, recent changes in medications, NSAID use 11/12-patient doing well. Status post units transfusion. Abdominal CT reveals thickened bladder/enlarged prostate. 4.2 cm gallstone. Ongoing prep for colonoscopy/EGD per surgery. Urology consulted for evaluation hematuria. Hemoglobin improved to 7.7 posttransfusion. Creatinine stable, serum iron 10 UA significant for hematuria/pyuria, urine cultures negative. 11/13-status post cystoscopy/colonoscopy and imaging consistent with cecal mass. Patient will undergo hemicolectomy in the next 24 hours. Seen postprocedure doing well. Will be n.p.o. after midnight. Stable labs and hemodynamics. No concerns expressed with nursing staff. 11/14-patient status post hemicolectomy. Postoperatively noted to be profoundly hypoxic requiring 10 L oxygen maintaining sats low 80s. Stat x-ray bibasilar atelectasis. Transfer to ICU. Use noninvasive ventilation/mechanical ventilation if indicated and worsening respiratory status. Critically ill postoperative status. On NG decompression. 11/15-patient gradually coming postop. Currently on 70s oxygen. Persistent hypoxia respiratory failure. Hemoglobin 7.6. [place] blood transfusion today. Stat chest x-ray/initiate diuresis. White count 12,000, cultures negative so far. Surgical pathology pending following operative resection of cecal mass. Continue aspiration precautions/NG decompression, postoperative care per surgery. Constitutional Vitals: Vital Signs Temp Pulse Resp BP Pulse Ox 98.6 F 84 25 H 125/81 94 11/15/20 08:01 11/15/20 00:22 11/15/20 10:01 11/15/20 10:01 11/15/20 10:01 Period Temp Pulse Resp BP Sys/Barrera Pulse Ox Last 24 Hr 97.1 F-99.9 F 81-96 11-30 105-141/62-88 90-96 Intake and Output 11/14/20 11/15/20 11/15/20 21:59 05:59 13:59 Intake Total 0 115 Output Total 275 250 Balance -275 -250 115 Weight 112.264 kg NG tube minimal output No telemetry events 7 L oxygen Postop abdominal no significant tenderness around surgery site Lymphedema noted Intake & Output: Intake & Output 11/14/20 11/15/20 11/15/20 21:59 05:59 13:59 Intake Total 0 115 Output Total 275 250 Balance -275 -250 115 Weight 112.264 kg Intake: IV 115 Rocephin 2 gm In Dextrose 5% in 50 Water 50 ml @ 100 mls/hr IV Q24H [facility] Rx#:[id number] Oral 0 Tube Feeding 0 Output: Void Amount 275 250 Other: Urine Appearance Clear Clear Sediment Urine Color Dark Hope Dark Hope [place] Urine Odor Strong Strong # Bowel Movements 0 OBJ DATA Labs CBC & Chem 7: 11/15/20 04:47 11/15/20 04:47 Labs: Abnormal Lab Results 11/15/20 11/15/20 11/14/20 04:47 04:47 05:06 WBC 12.0 H RBC 3.75 L Hgb 7.5 L Hct 27.8 L MCV 74.1 L MCH 20.0 L MCHC 27.0 L RDW 23.2 H MPV Neut % (Auto) 82.6 H Lymph % (Auto) 8.9 L Lymph # (Auto) 1.07 L [place] # (Auto) 1.00 H Absolute Neutrophils 9.92 H PT Glucose 106 H Calcium 8.5 L 11/14/20 11/13/20 11/13/20 05:06 08:04 05:02 WBC RBC 3.87 L 3.86 L Hgb 7.7 L 7.6 L Hct 28.0 L 27.4 L MCV 72.4 L 71.0 L MCH 19.9 L 19.7 L MCHC 27.5 L 27.7 L RDW 21.9 H 21.1 H MPV 10.5 H Neut % (Auto) 82.9 H Lymph % (Auto) 10.2 L Lymph # (Auto) 0.91 L 1.19 L [place] # (Auto) Absolute Neutrophils PT 15.2 H Glucose Calcium 11/13/20 05:01 WBC RBC Hgb Hct MCV MCH MCHC RDW MPV Neut % (Auto) Lymph % (Auto) Lymph # (Auto) [place] # (Auto) Absolute Neutrophils PT Glucose Calcium 8.3 L Meds: Medications Cyanocobalamin (Cyanocobalamin (Vitamin B-12) 500 Mcg Tablet) 1,000 mcg PO BID [facility] Stop: 11/16/20 09:01 Last Admin: 11/15/20 08:29 Dose: Not Given Documented by: Furosemide (Furosemide 20 Mg/2 Ml Vial) 20 mg IV Q12 [facility] Stop: 11/16/20 21:01 Heparin Sodium (Porcine) (Heparin 5,000 Unit/Ml Vial) 5,000 unit SQ Q12 [facility] Last Admin: 11/15/20 08:39 Dose: 5,000 unit Documented by: Hydromorphone HCl (Hydromorphone 0.5 Mg/0.5 Ml Syringe) 0.5 mg IV Q2HP PRN; Protocol PRN Reason: Per Pain Protocol Last Admin: 11/15/20 02:34 Dose: 0.5 mg Documented by: Acetaminophen (Ofirmev) 650 mg in 65 mls @ 130 mls/hr IV Q6HP PRN; Protocol PRN Reason: Per Pain Protocol/Fever > 101 Last Infusion: 11/15/20 08:29 Dose: Infused Documented by: Ceftriaxone Sodium 2 gm/ (Dextrose) 50 mls @ 100 mls/hr IV Q24H [facility]IRSTY; Protocol Last Infusion: 11/15/20 09:08 Dose: Infused Documented by: Magnesium Sulfate (Magnesium Sulfate) 2 gm in 50 mls @ 50 mls/hr IV UD PRN PRN Reason: MG = or < 1.7 Potassium Chloride 40 meq/ (Dextrose) 520 mls @ 130 mls/hr IV UD PRN PRN Reason: K+ = or < 3.5 Sodium Chloride (Sodium Chloride 0.9%) 250 mls @ 20 mls/hr IV .[id number] [facility] Stop: 11/15/20 23:59 Iron Carb/Multivit/Lens Molder/Folic Acid (Multivit,Ther Iron,Ca,Fa & Min 1 Tablet) 1 tab PO DAILY [facility] Last Admin: 11/15/20 08:29 Dose: Not Given Documented by: Melatonin (Melatonin 3 Mg Tablet) 3 mg PO HSP PRN PRN Reason: Insomnia Morphine Sulfate (Morphine 4 Mg/Ml Vial) 2 mg IV Q1HP PRN; Protocol PRN Reason: Per Pain Protocol Ondansetron HCl (Ondansetron 4 Mg Odt Tablet) 4 mg SL Q4-6HP PRN; Protocol PRN Reason: Nausea And Vomiting Ondansetron HCl (Ondansetron 4 Mg/2 Ml Vial) 4 mg IV Q4-6HP PRN; Protocol PRN Reason: Nausea And Vomiting Pantoprazole Sodium (Pantoprazole 40 Mg Vial) 40 mg IV BIDAC [facility] Last Admin: 11/15/20 07:35 Dose: 40 mg Documented by: Sodium Chloride (0.9 % Sodium Chloride 10 Ml Syringe) 10 ml IV Q8 [facility] Last Admin: 11/15/20 06:24 Dose: 10 ml Documented by: Sodium Chloride (0.9 % Sodium Chloride 10 Ml Syringe) 10 ml IV Q8 [facility] Last Admin: 11/15/20 06:24 Dose: Not Given Documented by: Tamsulosin HCl (Tamsulosin 0.4 Mg Capsule) 0.4 mg PO HS [facility] Last Admin: 11/14/20 21:14 Dose: Not Given Documented by: A/P Narrative A/P Narrative: * Cecal mass status post right hemicolectomy-postop day 1. Managed per surgery. NG tube in place. * Acute hypoxic respiratory failure, continue aspiration precautions. Repeat chest imaging today. On high flow oxygen 7 L wean as tolerated. * Anemia likely secondary to blood loss. Status post 2 units PRBC/400 mg iron sucrose. Initial 2 units PRBC today * Volume overload secondary to crystalloid challenges-start gentle diuresis * Hematuria/Bladder outlet obstruction/status post cystoscopy. Able to self void . urology managing. * Complicated UTI on Rocephin * Prophylax Heparin Plan * Continue close ICU monitoring * High flow oxygen wean as tolerated * Aggressive pulmonary toilet/aspiration precaution * Units PRBC transfusion/gentle diuresis Critical care time spent on management of hypoxic respiratory failure, blood transfusion/postoperative care in excess of 35 minutes Time Spent With Patient Time: Total time spent is greater than 50% in coordination of care (as documented) at patient's floor/unit and/or counseling patient: QUALITY Stroke Symptom Onset Unknown: No VTE Deep Vein Thrombosis/Pulmonary Embolism Present on Admission: No
[2020-11-15] MEDS ORDERED: 0.9 % SODIUM CHLORIDE 250 ML IV SCH (11:30)
--- NOTE | 2020-11-15 13:37 | XRay Report ---
CLINICAL INFORMATION: SOB hypoxia COMPARISON: 11/14/2020 FINDINGS: NG tube is now out. Film taken with suboptimal inspiratory result accentuates the heart size which is mildly enlarged. Mediastinum is unremarkable. Pulmonary vessels show mild upper lobe redistribution. Possible small infiltrate developing in the right upper lobe. Mild bibasilar atelectasis noted. No definite effusion IMPRESSION: Equivocal CHF or volume overload. Possible small pneumonia developing in the right upper lobe Interpreted and Authenticated by: Rl Leger 11/15/20
[2020-11-15] MEDS: FUROSEMIDE 20 MG/2 ML VIAL IV SCH ×2 (17:33→21:16)
[2020-11-15] MEDS ORDERED: FUROSEMIDE 20 MG/2 ML VIAL IV SCH (21:00)
[2020-11-15] MEDS: TAMSULOSIN 0.4 MG CAPSULE PO SCH (21:16)
[2020-11-16] MEDS: 0.9 % SODIUM CHLORIDE 10 ML SYRINGE IV SCH ×6 (06:03→22:00)
[2020-11-16 06:46] LABS: Basophils # (Auto) 0.04 K/mcL (0.00-0.20); Basophils % (Auto) 0.4 % (0.0-2.0); Eosinophils # (Auto) 0.11 K/mcL (0.00-0.70); Eosinophils % (Auto) 1.2 % (0.0-7.0); Hematocrit 32.1 % (41.0-55.0); Hemoglobin 9.2 g/dL (13.5-16.5); Lymphocytes # (Auto) 1.04 K/mcL (1.50-4.80); Lymphocytes % (Auto) 10.9 % (15.0-49.0); Mean Cell Volume 76.2 fL (80.0-100.0); Mean Corpuscular HGB Conc 28.7 g/dL (31.0-36.0); Mean Platelet Volume 10.4 fL (7.4-10.4); Monocytes # (Auto) 0.78 K/mcL (0.10-0.90); Monocytes % (Auto) 8.2 % (1.0-12.0); Neutrophils % (Auto) 79.3 % (38.0-78.0); Platelet Count 265 K/mcL (140-440); RBC 4.21 M/mcL (4.50-5.90); Red Cell Distribution Width 24.7 % (11.5-14.5); WBC 9.6 K/mcL (4.5-11.0)
[2020-11-16 07:11] LABS: ALT/SGPT 16 U/L (<40); AST/SGOT 21 U/L (<40); Albumin 3.4 gm/dL (3.2-5.2); Albumin/Globulin Ratio 1.4 (1.0-2.3); Alkaline Phosphatase 73 U/L (39-117); Bilirubin,Direct < 0.2 mg/dL (0-0.3); Bilirubin,Total 0.5 mg/dL (0.1-1.0); Blood Urea Nitrogen 16 mg/dL (8-23); Calcium 8.1 mg/dL (8.6-10.4); Carbon Dioxide 28 mmol/L (22-30); Chloride 104 mmol/L (96-108); Globulin 2.4 gm/dL (2.2-3.7); Glomerular Filtration Rate 85; Glucose 87 mg/dL (70-105); Lactate Dehydrogenase 193 U/L (135-225); Phosphorous 2.2 mg/dL (2.5-4.5); Triglycerides 108 mg/dL (<150); Uric Acid 6.2 mg/dL (2.5-8.0)
--- NOTE | 2020-11-16 07:59 | General Surgery Progress Note ---
SUBJECTIVE Subjective Patient information: Note initiated : 11/16/20 at 7:57 am Service Date, if different from initiated Date: [] Patient: Slyvester Rogers 80 y/o M admitted on 11/11/20 for urinary issues. Chief Complaint: [] Interval history: Patient doing well comfortable in chair and voiding frequently without discomfort Constitutional Vitals: Vital Signs Temp Pulse Resp BP Pulse Ox 99.5 F H 84 27 H 118/63 96 11/16/20 04:01 11/16/20 01:00 11/16/20 06:01 11/16/20 06:01 11/16/20 06:01 Period Temp Pulse Resp BP Sys/Barrera Pulse Ox Last 24 Hr 98.6 F-101.2 F 84-101 16-39 111-137/63-86 90-97 Intake and Output 11/15/20 11/16/20 11/16/20 21:59 05:59 13:59 Intake Total 775 720 Output Total 1020 1100 100 Balance -245 -380 -100 Weight 248 lb 8 oz Intake & Output: Intake & Output 11/15/20 11/16/20 11/16/20 21:59 05:59 13:59 Intake Total 775 720 Output Total 1020 1100 100 Balance -245 -380 -100 Weight 248 lb 8 oz Intake: IV 130 Oral 720 Blood Product 645 Output: Void Amount 1020 1100 100 Other: Urine Appearance Clear Hematuria Hematuria Urine Color Straw Dark Yellow Urine Odor Normal Additional findings Additional findings: Patient afebrile vital signs stable Comfortable without NG tube in place Normal diaphragmatic excursion Abdomen without rebound Extremities without significant pedal edema A/P Narrative A/P Narrative: Assessment: Doing well from urologic standpoint with postvoid residuals less than 10 cc Cytology pending and urine culture thus far with no growth Plan: Continue present management with increased mobility and await lab test results Time Spent With Patient Time: Total time spent is greater than 50% in coordination of care (as documented) at patient's floor/unit and/or counseling patient:
[2020-11-16] MEDS: cefTRIAXone 2 GM in DEXTROSE 5% IN WATER 50 ML IV SCH (08:24)
[2020-11-16] MEDS: HEPARIN 5,000 UNIT/ML VIAL SQ SCH ×2 (08:25→21:59)
[2020-11-16] MEDS: CYANOCOBALAMIN (VITAMIN B-12) 500 MCG TABLET PO SCH (08:25)
[2020-11-16] MEDS: MULTIVIT,THER IRON,CA,FA & MIN 1 TABLET PO SCH (08:25)
[2020-11-16] MEDS: FUROSEMIDE 20 MG/2 ML VIAL IV SCH (08:25)
[2020-11-16] MEDS: PANTOPRAZOLE 40 MG VIAL IV SCH ×2 (08:28→16:34)
--- NOTE | 2020-11-16 10:29 | Internal Med Progress Note ---
SUBJECTIVE Subjective Patient information: Note initiated : 11/16/20 at 10:24 am Service Date, if different from initiated Date: [] Patient: Sylvester Rogers a 80 y/o M admitted on 11/11/20 for urinary issues. Chief Complaint: [] Interval history: Mr. Rogers is a 80 year old M with history of hypertension/BPH who presents to the ER with progressive fatigue weakness difficulty urination over the last few days. He was evaluated at [facility], hemoglobin around 6.5, UA significant pyuria/hematuria. He was directed to the ER for further evaluation. Initial work-up in the ER was consistent with anemia however no evidence of acute bleed. surgery was consulted for evaluation. Patient was started on Protonix. Patient endorses to exertional shortness of breath and fatigue and malaise. He is unable to perform strenuous activities or climb a flight of stairs over the last couple of months. He denies black tarry stool/nausea/being on blood thinners or excessive alcohol use. He does endorse to brownish discoloration of urine/occasional bloody urine He lives with his and [employer]. Denies fever, chills, recent changes in medications, NSAID use 11/12-patient doing well. Status post units transfusion. Abdominal CT reveals thickened bladder/enlarged prostate. 4.2 cm gallstone. Ongoing prep for colonoscopy/EGD per surgery. Urology consulted for evaluation hematuria. Hemoglobin improved to 7.7 posttransfusion. Creatinine stable, serum iron 10 UA significant for hematuria/pyuria, urine cultures negative. 11/13-status post cystoscopy/colonoscopy and imaging consistent with cecal mass. Patient will undergo hemicolectomy in the next 24 hours. Seen postprocedure doing well. Will be n.p.o. after midnight. Stable labs and hemodynamics. No concerns expressed with nursing staff. 11/14-patient status post hemicolectomy. Postoperatively noted to be profoundly hypoxic requiring 10 L oxygen maintaining sats low 80s. Stat x-ray bibasilar atelectasis. Transfer to ICU. Use noninvasive ventilation/mechanical ventilation if indicated and worsening respiratory status. Critically ill postoperative status. On NG decompression. 11/15-patient gradually coming postop. Currently on 70s oxygen. Persistent hypoxia respiratory failure. Hemoglobin 7.6. [place] blood transfusion today. Stat chest x-ray/initiate diuresis. White count 12,000, cultures negative so far. Surgical pathology pending following operative resection of cecal mass. Continue aspiration precautions/NG decompression, postoperative care per surgery. 11/16-patient doing a lot better. No overnight events. On 4 L oxygen. Postop care ongoing per surgery. No overnight telemetry events. Ongoing therapies. Transition to medical floor. Continue antibiotic coverage. WBC normalized down to 9.6, hemoglobin improved from 7.5-9.2, much improved respiratory status. Phosphorus 2.2 on replacement. CHF improved with diuresis. Net -2000 cc urine output following 3 doses of Lasix Constitutional Vitals: Vital Signs Temp Pulse Resp BP Pulse Ox 98.6 F 84 26 H 130/77 91 11/16/20 08:01 11/16/20 01:00 11/16/20 10:04 11/16/20 10:01 11/16/20 10:04 Period Temp Pulse Resp BP Sys/Barrera Pulse Ox Last 24 Hr 98.6 F-101.2 F 84-101 16-39 111-137/63-87 90-99 Intake and Output 11/15/20 11/16/20 11/16/20 21:59 05:59 13:59 Intake Total 775 720 50 Output Total 1020 1100 1150 Balance -245 -380 -1100 Weight 112.718 kg Doing well, nonlabored breathing, no anxiety On 4 L oxygen No lymphedema Nontender nondistended abdomen, operative incision site no erythema Intake & Output: Intake & Output 11/15/20 11/16/20 11/16/20 21:59 05:59 13:59 Intake Total 775 720 50 Output Total 1020 1100 1150 Balance -245 -380 -1100 Weight 112.718 kg Intake: IV 130 50 Rocephin 2 gm In Dextrose 5% in 50 Water 50 ml @ 100 mls/hr IV Q24H [facility] Rx#:[id number] Oral 720 Blood Product 645 Output: Void Amount 1020 1100 1150 Other: Urine Appearance Clear Hematuria Small Blood Clots Urine Color Straw Dark Yellow [place] Urine Odor Normal OBJ DATA Labs CBC & Chem 7: 11/16/20 05:06 11/16/20 05:06 Labs: Abnormal Lab Results 11/16/20 11/16/20 11/15/20 05:06 05:06 04:47 WBC RBC 4.21 L Hgb 9.2 L Hct 32.1 L MCV 76.2 L MCH 21.9 L MCHC 28.7 L RDW 24.7 H MPV Neut % (Auto) 79.3 H Lymph % (Auto) 10.9 L Lymph # (Auto) 1.04 L [place] # (Auto) Absolute Neutrophils Glucose Calcium 8.1 L 8.5 L Phosphorus 2.2 L Total Protein 5.8 L 11/15/20 11/14/20 11/14/20 04:47 05:06 05:06 WBC 12.0 H RBC 3.75 L 3.87 L Hgb 7.5 L 7.7 L Hct 27.8 L 28.0 L MCV 74.1 L 72.4 L MCH 20.0 L 19.9 L MCHC 27.0 L 27.5 L RDW 23.2 H 21.9 H MPV 10.5 H Neut % (Auto) 82.6 H 82.9 H Lymph % (Auto) 8.9 L 10.2 L Lymph # (Auto) 1.07 L 0.91 L [place] # (Auto) 1.00 H Absolute Neutrophils 9.92 H Glucose 106 H Calcium Phosphorus Total Protein Meds: Medications Heparin Sodium (Porcine) (Heparin 5,000 Unit/Ml Vial) 5,000 unit SQ Q12 [facility] Last Admin: 11/16/20 08:25 Dose: 5,000 unit Documented by: Hydromorphone HCl (Hydromorphone 0.5 Mg/0.5 Ml Syringe) 0.5 mg IV Q2HP PRN; Protocol PRN Reason: Per Pain Protocol Last Admin: 11/15/20 19:23 Dose: 0.5 mg Documented by: Acetaminophen (Ofirmev) 650 mg in 65 mls @ 130 mls/hr IV Q6HP PRN; Protocol PRN Reason: Per Pain Protocol/Fever > 101 Last Infusion: 11/15/20 21:58 Dose: Infused Documented by: Ceftriaxone Sodium 2 gm/ (Dextrose) 50 mls @ 100 mls/hr IV Q24H [facility]; Protocol Last Infusion: 11/16/20 09:19 Dose: Infused Documented by: Magnesium Sulfate (Magnesium Sulfate) 2 gm in 50 mls @ 50 mls/hr IV UD PRN PRN Reason: MG = or < 1.7 Potassium Chloride 40 meq/ (Dextrose) 520 mls @ 130 mls/hr IV UD PRN PRN Reason: K+ = or < 3.5 Last Admin: 11/16/20 08:28 Dose: 130 mls/hr Documented by: Iron Carb/Multivit/[place]/Folic Acid (Multivit,Ther Iron,Ca,Fa & Min 1 Tablet) 1 tab PO DAILY [facility] Last Admin: 11/16/20 08:25 Dose: 1 tab Documented by: Melatonin (Melatonin 3 Mg Tablet) 3 mg PO HSP PRN PRN Reason: Insomnia Last Admin: 11/15/20 21:17 Dose: 3 mg Documented by: Morphine Sulfate (Morphine 4 Mg/Ml Vial) 2 mg IV Q1HP PRN; Protocol PRN Reason: Per Pain Protocol Ondansetron HCl (Ondansetron 4 Mg Odt Tablet) 4 mg SL Q4-6HP PRN; Protocol PRN Reason: Nausea And Vomiting Ondansetron HCl (Ondansetron 4 Mg/2 Ml Vial) 4 mg IV Q4-6HP PRN; Protocol PRN Reason: Nausea And Vomiting Pantoprazole Sodium (Pantoprazole 40 Mg Vial) 40 mg IV BIDAC [facility] Last Admin: 11/16/20 08:28 Dose: 40 mg Documented by: Sodium Chloride (0.9 % Sodium Chloride 10 Ml Syringe) 10 ml IV Q8 [facility] Last Admin: 11/16/20 06:03 Dose: 10 ml Documented by: Sodium Chloride (0.9 % Sodium Chloride 10 Ml Syringe) 10 ml IV Q8 [facility] Last Admin: 11/16/20 06:03 Dose: Not Given Documented by: Tamsulosin HCl (Tamsulosin 0.4 Mg Capsule) 0.4 mg PO HS [facility] Last Admin: 11/15/20 21:16 Dose: 0.4 mg Documented by: A/P Narrative A/P Narrative: * Cecal mass status post right hemicolectomy-postop day 2. Managed per surgery. * Acute hypoxic respiratory failure, secondary to ADH F/volume overload and possible. Responded well to diuresis. On 4 L oxygen and weaning as tolerated * Anemia likely secondary to blood loss. Status post 4 units PRBC/400 mg iron sucrose. Hemoglobin 9.2 * Volume overload secondary to crystalloid challenges- resolved following 3 doses of Lasix * Hematuria/Bladder outlet obstruction/status post cystoscopy by Dr. Titi Faustin urology. Able to self void . urology managing. * Complicated UTI -staph epidermis on culture. DC antibiotics * Prophylax Heparin Plan * transfer to medical floor * DC antibiotics * DC diuretics * Aspiration precautions/aggressive pulmonary toilet * Postop care per surgery including diet advance * Case management to coordinate SNF transfer * daily physical therapy Critical care time spent on management of hypoxic respiratory failure, blood transfusion/postoperative care in excess of 35 minutes Time Spent With Patient Time: Total time spent is greater than 50% in coordination of care (as documented) at patient's floor/unit and/or counseling patient: QUALITY Stroke Symptom Onset Unknown: No VTE Deep Vein Thrombosis/Pulmonary Embolism Present on Admission: No
[2020-11-16] MEDS ORDERED: MAGNESIUM SULFATE 2 GM/50 ML BAG IV PRN (11:11)
[2020-11-16] MEDS ORDERED: GLYCOPYRROLATE 0.2 MG/ML VIAL IV ONE ×2 (11:11)
[2020-11-16] MEDS ORDERED: HYDROmorphone 0.5 MG/0.5 ML SYRINGE IV PRN (11:11)
[2020-11-16] MEDS ORDERED: ALBUMIN HUMAN 25 GM/100 ML BAG IV ONE (11:11)
[2020-11-16] MEDS ORDERED: MAGNESIUM SULFATE 2 GM/50 ML BAG IV ONE (11:11)
[2020-11-16] MEDS ORDERED: ONDANSETRON 4 MG ODT TABLET SL PRN (11:11)
[2020-11-16] MEDS ORDERED: POTASSIUM CHLORIDE 40 MEQ in DEXTROSE 5% IN WATER 500 ML IV PRN (11:11)
[2020-11-16] MEDS ORDERED: ONDANSETRON 4 MG/2 ML VIAL IV PRN (11:11)
--- NOTE | 2020-11-16 11:40 | General Surgery Progress Note ---
SUBJECTIVE Subjective Patient information: Note initiated : 11/16/20 at 11:38 am Service Date, if different from initiated Date: [] Patient: Sylvester Rogers 80 y/o M admitted on 11/11/20 for urinary issues. Chief Complaint: [] Interval history: Postop day #2 status post right hemicolectomy. Patient is tolerating clear liquid diet without difficulty. He has been out of bed with short amount of ambulation without difficulty. Constitutional Vitals: Vital Signs Temp Pulse Resp BP Pulse Ox 98.6 F 84 26 H 130/77 92 11/16/20 08:01 11/16/20 01:00 11/16/20 10:04 11/16/20 10:01 11/16/20 10:34 Period Temp Pulse Resp BP Sys/Barrera Pulse Ox Last 24 Hr 98.6 F-101.2 F 84-101 16-39 111-137/63-87 90-99 Intake and Output 11/15/20 11/16/20 11/16/20 21:59 05:59 13:59 Intake Total 775 720 50 Output Total 1020 1100 1150 Balance -245 -380 -1100 Weight 248 lb 8 oz Intake & Output: Intake & Output 11/15/20 11/16/20 11/16/20 21:59 05:59 13:59 Intake Total 775 720 50 Output Total 1020 1100 1150 Balance -245 -380 -1100 Weight 248 lb 8 oz Intake: IV 130 50 Rocephin 2 gm In Dextrose 5% in 50 Water 50 ml @ 100 mls/hr IV Q24H [facility] Rx#:[id number] Oral 720 Blood Product 645 Output: Void Amount 1020 1100 1150 Other: Urine Appearance Clear Hematuria Small Blood Clots Urine Color Straw Dark Yellow [place] Urine Odor Normal General appearance: cooperative and no acute distress GI/Abdominal GI/Abdominal exam: Present normal bowel sounds, soft and tenderness (Appropriately tender to palpation); Absent distended Additional comments: Incision is clean dry and intact A/P Narrative A/P Narrative: Doing as expected postop day #2. Awaiting full return of bowel function before advancing to regular diet. Encourage ambulation in gurrola minimum 3 times daily. Time Spent With Patient Time: Total time spent is greater than 50% in coordination of care (as documented) at patient's floor/unit and/or counseling patient:
--- NOTE | 2020-11-16 14:34 | Surgical Pathology Report ---
Histology Microscopic Diagnosis Specimen A- CECUM, MASS, BIOPSY: --- MODERATELY DIFFERENTIATED ADENOCARCINOMA, AT LEAST SUPERFICIALLY INVASIVE. (RLF) Clinical History Hemoccult positive stools. Procedural Impression (?) Cancer. Gross Description Received in formalin labeled cecal biopsy, are three fragments of mcdermott tissue 0.1 to 0.3 cm. Totally submitted in one cassette. (KGW:bw) Electronically Signed Kaitlyn Velásquez MD, FCAP Electronically Signed 11/16/2020 14:33
[2020-11-16] MEDS: MELATONIN 3 MG TABLET PO PRN (22:00)
[2020-11-16] MEDS: TAMSULOSIN 0.4 MG CAPSULE PO SCH (22:00)
[2020-11-16] MEDS: ACETAMINOPHEN 650 MG/65 ML BAG IV PRN (22:01)
[2020-11-17] MEDS: 0.9 % SODIUM CHLORIDE 10 ML SYRINGE IV SCH ×4 (06:07→22:41)
[2020-11-17] MEDS: PANTOPRAZOLE 40 MG VIAL IV SCH ×2 (07:18→17:12)
[2020-11-17] MEDS: ACETAMINOPHEN 650 MG/65 ML BAG IV PRN (07:40)
[2020-11-17] MEDS: MULTIVIT,THER IRON,CA,FA & MIN 1 TABLET PO SCH (08:32)
[2020-11-17] MEDS: HEPARIN 5,000 UNIT/ML VIAL SQ SCH ×2 (08:32→19:45)
[2020-11-17] MEDS: cefTRIAXone 2 GM in DEXTROSE 5% IN WATER 50 ML IV SCH (08:32)
--- NOTE | 2020-11-17 08:37 | Non-GYN Cytology Report ---
Non [place] Cytology NG Diagnosis URINE, VOIDED: --- ATYPICAL UROTHELIAL CELLS PRESENT, SEE COMMENT. (RLF) NG Comments There are atypical hyperchromatic urothelial cells present with degenerative features. A urothelial neoplasm cannot be excluded. NG Micro Description The ThinPrep slide is examined and demonstrates atypical hyperchromatic cells, present individually and in clusters. Cells have high nuclear to cytoplasmic ratios, smudged/indistinct chromatin pattern and scant cytoplasm. Also present are a few squamous epithelial cells, neutrophils and acellular debris. NG Gross Description Received 50 mL clear fluid. Electronically Signed Kaitlyn Velásquez MD, FCAP Electronically Signed 11/17/2020 08:36
[2020-11-17 09:29] LABS: Basophils # (Auto) 0.03 K/mcL (0.00-0.20); Basophils % (Auto) 0.3 % (0.0-2.0); Eosinophils # (Auto) 0.17 K/mcL (0.00-0.70); Eosinophils % (Auto) 1.8 % (0.0-7.0); Hematocrit 35.7 % (41.0-55.0); Hemoglobin 10.2 g/dL (13.5-16.5); Lymphocytes # (Auto) 1.13 K/mcL (1.50-4.80); Mean Cell Volume 76.3 fL (80.0-100.0); Mean Corpuscular HGB Conc 28.6 g/dL (31.0-36.0); Mean Platelet Volume 9.8 fL (7.4-10.4); Monocytes # (Auto) 0.73 K/mcL (0.10-0.90); Monocytes % (Auto) 7.7 % (1.0-12.0); Neutrophils % (Auto) 78.2 % (38.0-78.0); Platelet Count 281 K/mcL (140-440); RBC 4.68 M/mcL (4.50-5.90); Red Cell Distribution Width 26.1 % (11.5-14.5); WBC 9.4 K/mcL (4.5-11.0)
[2020-11-17 09:53] LABS: ALT/SGPT 19 U/L (<40); AST/SGOT 31 U/L (<40); Albumin 3.5 gm/dL (3.2-5.2); Albumin/Globulin Ratio 1.1 (1.0-2.3); Alkaline Phosphatase 81 U/L (39-117); Bilirubin,Total 0.6 mg/dL (0.1-1.0); Blood Urea Nitrogen 17 mg/dL (8-23); Calcium 9.2 mg/dL (8.6-10.4); Carbon Dioxide 28 mmol/L (22-30); Chloride 103 mmol/L (96-108); Globulin 3.1 gm/dL (2.2-3.7); Glomerular Filtration Rate 90; Glucose 84 mg/dL (70-105)
--- NOTE | 2020-11-17 16:25 | General Surgery Progress Note ---
SUBJECTIVE Subjective Patient information: Note initiated : 11/17/20 at 4:23 pm Service Date, if different from initiated Date: [] Patient: Sylvester Rogers 80 y/o M admitted on 11/11/20 for urinary issues. Chief Complaint: [] Interval history: Patient is feeling well this morning, tolerating clear liquid diets, had a bowel movement this morning. Constitutional Vitals: Vital Signs Temp Pulse Resp BP Pulse Ox 98.0 F 84 20 119/78 94 11/17/20 12:00 11/17/20 12:00 11/17/20 12:00 11/17/20 12:00 11/17/20 12:00 Period Temp Pulse Resp BP Sys/Barrera Pulse Ox Last 24 Hr 97.9 F-98.2 F 84-95 20-24 119-144/74-91 93-96 Intake and Output 11/17/20 11/17/20 11/17/20 05:59 13:59 21:59 Intake Total 605 955 Output Total 50 600 Balance 555 355 Intake & Output: Intake & Output 11/17/20 11/17/20 11/17/20 05:59 13:59 21:59 Intake Total 605 955 Output Total 50 600 Balance 555 355 Intake: IV 65 115 Rocephin 2 gm In Dextrose 5% in 50 Water 50 ml @ 100 mls/hr IV Q24H [facility] Rx#:[id number] Oral 540 840 Output: Void Amount 50 600 Other: Meal Breakfast Percent of Meal Consumed 75% Feeding Ability Assist with Tray Set Up Urine Appearance Clear Urine Color Dark [place] Tea Colored Urine Odor Normal Stool Size Small Stool Color Brown Blood Tinged General appearance: cooperative and no acute distress GI/Abdominal GI/Abdominal exam: Present soft; Absent distended Additional comments: Incision is clean dry and intact A/P Narrative A/P Narrative: Patient is progressing well, will advance to regular diet. The patient tolerates regular diet may be able to go home in a.m. Time Spent With Patient Time: Total time spent is greater than 50% in coordination of care (as documented) at patient's floor/unit and/or counseling patient:
--- NOTE | 2020-11-17 16:52 | Surgical Pathology Report ---
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 -- MARGINS FREE OF CARCINOMA: - 10.2 CM TO DISTAL MARGIN. - 11 CM TO NEAREST MESENTERIC MARGIN. - 13.5 CM TO PROXIMAL MARGIN. -- LYMPHOVASCULAR INVASION: NOT IDENTIFIED. -- PERINEURAL INVASION: NOT IDENTIFIED. -- TUMOR DEPOSITS: NOT IDENTIFIED. -- LYMPH NODES: NO METASTATIC CARCINOMA IDENTIFIED IN 23 LYMPH NODES (0/23). -- PATHOLOGIC STAGE: pT2 N0. --- LOW GRADE APPENDICEAL MUCINOUS NEOPLASM. (EBD) Comments Within the right colon an exophytic mass of the cecum is identified showing moderately differentiated adenocarcinoma, similar to findings of the recent prior biopsy ([id number], 11/13/2020). Additionally, the appendix shows dilation at the base with a thinned wall on gross examination and is found to have tenacious mucinous material within the lumen. 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 No perforation of the appendix is identified nor is involvement by adenocarcinoma identified within the appendix. Please see summary cancer data below. SUMMARY CANCER DATA Procedure: Right hemicolectomy. Tumor Site: Cecum. Tumor Size: 4.7 x 2.5 x 2 cm. Macroscopic Tumor Perforation: Not identified. Histologic Type: Adenocarcinoma. Histologic Grade: Moderately differentiated. Microscopic Tumor Extension: Invasive to muscularis propria. Lymph-Vascular Invasion: Not identified. Perineural Invasion: Not identified. Tumor Deposits (discontinuous extramural extension): Not identified. Treatment Effect: Not applicable. Margins: Proximal Margin: 13.5 cm. Distal Margin: 10.2 cm. Circumferential (Radial) or Mesenteric Margin: 11 cm. Distance of invasive carcinoma from closest margin: 10.2 cm. Lymph nodes: Number of Lymph Nodes examined: 23. Number of Lymph Nodes involved: 0. Pathologic Stage: pT2 N0. Gross Description Received in formalin, designated as right cecal mass cecum, is a right hemicolectomy specimen consisting of an 18.5 cm long up to 6 cm in diameter portion of ascending colon attached to a 7.5 cm long, 2.2 cm in diameter portion of ileum. At the cecum, is an attached 5.5 cm appendix that is up to 2.3 cm in diameter at the base. The external surface has a moderate amount of attached mcdermott-yellow adipose tissue. The proximal margin is closed with a 3.2 cm long staple line. The distal margin is closed with a 4.2 cm long staple line. The serosal surface is mcdermott-pink and smooth and glistening with an area of serosal puckering at the cecum, located 11.5 cm from the distal margin and 15 cm from the nearest proximal margin. The area of serosal puckering is inked black. The specimen is opened along its length to reveal a minimal amount of luminal mcdermott-brown muddy fecal material. Within the cecum, 3 cm from the ileocecal valve and 2.7 cm from the appendiceal orifice is a exophytic 4.7 x 2.5 x 2 cm mass. The mass is 10.2 cm from the nearest distal margin, 11 cm from the nearest mesenteric margin, and 13.5 cm from the nearest proximal margin. The mass is serially sectioned and appears to invade into the muscular wall without involving the inked serosal surface. The appendix is sectioned along its length and the proximal 6 cm is dilated to 2.3 cm and contains thick, tenacious mucin in the lumen. The appendix wall is thinned to less than 0.1 cm in the proximal area. Mucin does not involve the inked serosal surface nor does it appear to extend into the adjacent colonic lumen. A minimal amount of mucin extends into the appendiceal tip. The remaining colonic and ileal mucosa has the usual plicated pattern. No additional mucosal lesions are seen. Multiple candidate lymph nodes are identified within the mesentery. [employer] sections are submitted as follows: A1 - proximal and distal margins; A2-A3 - composite cross section of cecal mass; A4-A5 composite cross section of cecal mass; A6-A7 - composite cross section of cecal mass; A8 - additional cecal mass; A9 - appendiceal tip; A10-A11 - cross sections of mid appendix; A12 - appendix towards appendiceal orifice and colon; A13 - ileocecal valve; A14 - nearest fat margin to cecal and appendiceal masses; A15 - random colon and small intestine; A16 - six intact candidate lymph nodes; A17 - six intact candidate lymph nodes; A18 - four intact candidate lymph nodes; A19 - four intact candidate lymph nodes; A20 - two candidate lymph nodes each bisected one inked black one inked blue; A21 - two candidate lymph nodes each bisected one inked black one inked blue; A22 - two candidate lymph nodes each bisected one inked black one inked blue. (DMT:abby) Electronically Signed Leonora Theodore MD, FCAP Electronically Signed 11/17/2020 16:50
[2020-11-17] MEDS: TAMSULOSIN 0.4 MG CAPSULE PO SCH (19:45)
[2020-11-17] MEDS: MELATONIN 3 MG TABLET PO PRN (19:45)
--- NOTE | 2020-11-17 22:23 | Internal Med Progress Note ---
SUBJECTIVE Subjective Patient information: Note initiated : 11/17/20 at 10:14 pm Service Date, if different from initiated Date: [] Patient: Sylvester Rogers 80 y/o M admitted on 11/11/20 for urinary issues. Chief Complaint: [Cecel mass] Overnight: Afebrile. 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 Subjective: Mild sharp abdominal pain, around the abdominal surgical wound. Denies nausea or vomiting. Poor appetite, only tolerated minimal amount of clear liquid diet. Denies any fever, chills, or sweating. Constitutional Vitals: Vital Signs Temp Pulse Resp BP Pulse Ox 36.1 C 99 H 14 108/73 93 11/17/20 19:44 11/17/20 19:44 11/17/20 19:44 11/17/20 19:44 11/17/20 19:44 Period Temp Pulse Resp BP Sys/Barrera Pulse Ox Last 24 Hr 36.1 C-36.8 C 84-99 14-24 108-144/73-90 93-96 Intake and Output 11/17/20 11/17/20 11/18/20 13:59 21:59 05:59 Intake Total 955 680 Output Total 600 75 Balance 355 605 Weight 112.718 kg Patient Weight 11/18/20 05:59 Weight 112.718 kg Intake & Output: Intake & Output 11/17/20 11/17/20 11/18/20 13:59 21:59 05:59 Intake Total 955 680 Output Total 600 75 Balance 355 605 Weight 112.718 kg Intake: IV 115 Rocephin 2 gm In Dextrose 5% in 50 Water 50 ml @ 100 mls/hr IV Q24H [facility] Rx#:[id number] Oral 840 680 Output: Void Amount 600 75 Other: Meal Breakfast Dinner Percent of Meal Consumed 75% 75% Feeding Ability Assist with Tray Set Up Assist with Tray Set Up Urine Color Tea Colored Tea Colored Urine Odor Normal Strong Stool Size Small Stool Color Brown Blood Tinged General appearance: cooperative and no acute distress Head Head exam: Present atraumatic and normocephalic Eye Eye exam: Present EOMI and PERRL ENT ENT exam: Present mucous membranes moist, normal exam and normal external ear exam Neck Neck exam: Present normal inspection; Absent lymphadenopathy, tenderness and thyromegaly Respiratory Respiratory exam: Absent accessory muscle use, respiratory distress and wheezes Cardiovascular Cardiovascular exam: Present normal rate and rhythm; Absent JVD GI/Abdominal GI/Abdominal exam: Present soft; Absent organomegaly and tenderness Additional comments: Hypoactive bowel sound Abdominal surgical wound with [place], no wound dishesion. Abdominal binder in place. Mild tenderness to palpation around the surgical site. Rectal Rectal exam: Present deferred Extremities Exam Extremities exam: Present full ROM, normal capillary refill and normal inspection; Absent tenderness Neurological Exam Neurological exam: Present alert, CN II-XII intact and oriented X3; Absent motor sensory deficit Psychiatric Psychiatric exam: Present normal affect and normal mood; Absent anxious and depressed Skin Skin exam: Present dry and intact OBJ DATA Labs CBC & Chem 7: 11/17/20 05:20 11/17/20 05:20 Labs: Abnormal Lab Results 11/17/20 11/16/20 11/16/20 05:20 05:06 05:06 WBC RBC 4.21 L Hgb 10.2 L 9.2 L Hct 35.7 L 32.1 L MCV 76.3 L 76.2 L MCH 21.8 L 21.9 L MCHC 28.6 L 28.7 L RDW 26.1 H 24.7 H Neut % (Auto) 78.2 H 79.3 H Lymph % (Auto) 12.0 L 10.9 L Lymph # (Auto) 1.13 L 1.04 L Christian # (Auto) Absolute Neutrophils Calcium 8.1 L Phosphorus 2.2 L Total Protein 5.8 L 11/15/20 11/15/20 04:47 04:47 WBC 12.0 H RBC 3.75 L Hgb 7.5 L Hct 27.8 L MCV 74.1 L MCH 20.0 L MCHC 27.0 L RDW 23.2 H Neut % (Auto) 82.6 H Lymph % (Auto) 8.9 L Lymph # (Auto) 1.07 L Christian # (Auto) 1.00 H Absolute Neutrophils 9.92 H Calcium 8.5 L Phosphorus Total Protein Meds: Medications Heparin Sodium (Porcine) (Heparin 5,000 Unit/Ml Vial) 5,000 unit SQ Q12 [facility] Last Admin: 11/17/20 19:45 Dose: 5,000 unit Documented by: Ceftriaxone Sodium 2 gm/ (Dextrose) 50 mls @ 100 mls/hr IV Q24H [facility]; Protocol Last Infusion: 11/17/20 09:18 Dose: Infused Documented by: Magnesium Sulfate (Magnesium Sulfate) 2 gm in 50 mls @ 50 mls/hr IV UD PRN PRN Reason: MG = or < 1.7 Potassium Chloride 40 meq/ (Dextrose) 520 mls @ 130 mls/hr IV UD PRN PRN Reason: K+ = or < 3.5 Acetaminophen (Ofirmev) 650 mg in 65 mls @ 130 mls/hr IV Q6HP PRN; Protocol PRN Reason: Per Pain Protocol/Fever > 101 Last Infusion: 11/17/20 09:18 Dose: Infused Documented by: Iron Carb/Multivit/Irs Agent/Folic Acid (Multivit,Ther Iron,Ca,Fa & Min 1 Tablet) 1 tab PO DAILY [facility] Last Admin: 11/17/20 08:32 Dose: 1 tab Documented by: Melatonin (Melatonin 3 Mg Tablet) 3 mg PO HSP PRN PRN Reason: Insomnia Last Admin: 11/17/20 19:45 Dose: 3 mg Documented by: Ondansetron HCl (Ondansetron 4 Mg Odt Tablet) 4 mg SL Q4-6HP PRN; Protocol PRN Reason: Nausea And Vomiting Ondansetron HCl (Ondansetron 4 Mg/2 Ml Vial) 4 mg IV Q4-6HP PRN; Protocol PRN Reason: Nausea And Vomiting Last Admin: 11/17/20 06:07 Dose: 4 mg Documented by: Oxycodone HCl (Oxycodone Hcl 5 Mg Tablet) 10 mg PO Q4HP PRN PRN Reason: PAIN LEVEL 3-6 Pantoprazole Sodium (Pantoprazole 40 Mg Vial) 40 mg IV BIDAC [facility] Last Admin: 11/17/20 17:12 Dose: 40 mg Documented by: Sodium Chloride (0.9 % Sodium Chloride 10 Ml Syringe) 10 ml IV Q8 [facility] Last Admin: 11/17/20 19:45 Dose: 10 ml Documented by: Tamsulosin HCl (Tamsulosin 0.4 Mg Capsule) 0.4 mg PO HS [facility] Last Admin: 11/17/20 19:45 Dose: 0.4 mg Documented by: A/P Assessment and plan (1) 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 POD#[address] Suárez Oxycodone 10mg PO q4hr PRN moderate pain Clear liquid diet Rocephin as surgical prophylaxis Tylenol PRN fever cbc w/ auto diff in the AM to trend WBC PT OR evaluation and treatment: recs. HH PT upon discharge 2. Anemia: Likely secondary to post surgical blood loss anemia cbc w/ auto diff in the AM to trend H/H; transfuse pRBC if hemoglobin <7.0, active blood loss, or if patient becomes symptomatic 3. Recent urinary retention due to enlarged prostate: Urology consulted, recs. appreciated Currently urinating spontaneously, continue to monitor Time Spent With Patient Time: Total time spent is greater than 50% in coordination of care (as documented) at patient's floor/unit and/or counseling patient: Total time spent with greater than 50% in coordination of care (as documented) at patient's floor/unit and/or counseling patient:: 25 - 35 minutes QUALITY Stroke Symptom Onset Unknown: No VTE Deep Vein Thrombosis/Pulmonary Embolism Present on Admission: No
[2020-11-18] MEDS: 0.9 % SODIUM CHLORIDE 10 ML SYRINGE IV SCH ×3 (04:54→20:39)
--- NOTE | 2020-11-18 07:33 | General Surgery Progress Note ---
SUBJECTIVE Subjective Patient information: Note initiated : 11/18/20 at 7:30 am Service Date, if different from initiated Date: [] Patient: Sylvester Rogers 80 y/o M admitted on 11/11/20 for urinary issues. 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 Patient presently voiding well with clear urine Constitutional Vitals: Vital Signs Temp Pulse Resp BP Pulse Ox 98.3 F 92 H 20 115/74 95 11/18/20 04:51 11/18/20 04:51 11/18/20 04:51 11/18/20 04:51 11/18/20 04:51 Period Temp Pulse Resp BP Sys/Barrera Pulse Ox Last 24 Hr 97.0 F-98.3 F 84-99 - 107-137/73-87 93-96 Intake and Output 11/17/20 11/18/20 11/18/20 21:59 05:59 13:59 Intake Total 680 720 Output Total 250 200 Balance 430 520 Weight 248 lb 8 oz Intake & Output: Intake & Output 11/17/20 11/18/20 11/18/20 21:59 05:59 13:59 Intake Total 680 720 Output Total 250 200 Balance 430 520 Weight 248 lb 8 oz Intake: IV 520 Potassium Chloride 40 Meq In 520 Dextrose 5% in Water 500 ml @ 130 mls/hr IV UD PRN Rx#: [id number] Oral 680 200 Output: Void Amount 250 200 Other: Meal Dinner Percent of Meal Consumed 75% Feeding Ability Assist with Tray Set Up Urine Color Tea Colored Urine Odor Strong # Voids 1 Additional findings Additional findings: Patient sleeping comfortably presently and in no acute distress A/P Narrative A/P Narrative: Assessment and plan: Atypical cytology finding on urine for preop examination 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 We will continue alpha-aristides therapy to assure adequate voiding and follow along with general surgery and/or medical oncology unless new symptoms arise in the interim Time Spent With Patient Time: Total time spent is greater than 50% in coordination of care (as documented) at patient's floor/unit and/or counseling patient:
[2020-11-18] MEDS: PANTOPRAZOLE 40 MG VIAL IV SCH ×2 (07:34→18:12)
[2020-11-18 10:34] LABS: Basophils # (Auto) 0.04 K/mcL (0.00-0.20); Basophils % (Auto) 0.4 % (0.0-2.0); Eosinophils # (Auto) 0.25 K/mcL (0.00-0.70); Eosinophils % (Auto) 2.3 % (0.0-7.0); Hematocrit 37.4 % (41.0-55.0); Hemoglobin 10.6 g/dL (13.5-16.5); Lymphocytes # (Auto) 1.21 K/mcL (1.50-4.80); Lymphocytes % (Auto) 11.2 % (15.0-49.0); Mean Cell Volume 76.5 fL (80.0-100.0); Mean Corpuscular HGB Conc 28.3 g/dL (31.0-36.0); Mean Platelet Volume 10.3 fL (7.4-10.4); Monocytes # (Auto) 0.78 K/mcL (0.10-0.90); Monocytes % (Auto) 7.2 % (1.0-12.0); Neutrophils % (Auto) 78.9 % (38.0-78.0); Platelet Count 308 K/mcL (140-440); RBC 4.89 M/mcL (4.50-5.90); Red Cell Distribution Width 26.7 % (11.5-14.5); WBC 10.8 K/mcL (4.5-11.0)
[2020-11-18 10:58] LABS: ALT/SGPT 38 U/L (<40); AST/SGOT 41 U/L (<40); Albumin 3.7 gm/dL (3.2-5.2); Albumin/Globulin Ratio 1.2 (1.0-2.3); Alkaline Phosphatase 86 U/L (39-117); Bilirubin,Total 0.5 mg/dL (0.1-1.0); Blood Urea Nitrogen 22 mg/dL (8-23); Calcium 9.2 mg/dL (8.6-10.4); Carbon Dioxide 28 mmol/L (22-30); Chloride 99 mmol/L (96-108); Globulin 3.2 gm/dL (2.2-3.7); Glomerular Filtration Rate 81; Glucose 129 mg/dL (70-105)
[2020-11-18] MEDS: cefTRIAXone 2 GM in DEXTROSE 5% IN WATER 50 ML IV SCH (11:02)
[2020-11-18] MEDS: oxyCODONE HCL 5 MG TABLET PO PRN ×2 (11:23→23:56)
[2020-11-18] MEDS: MULTIVIT,THER IRON,CA,FA & MIN 1 TABLET PO SCH (11:24)
[2020-11-18] MEDS: FUROSEMIDE 40 MG TABLET PO SCH ×2 (11:24→18:16)
[2020-11-18] MEDS: HEPARIN 5,000 UNIT/ML VIAL SQ SCH ×2 (11:37→20:39)
--- NOTE | 2020-11-18 15:31 | General Surgery Progress Note ---
SUBJECTIVE Subjective Patient information: Note initiated : 11/18/20 at 3:31 pm Service Date, if different from initiated Date: [] Patient: Sylvester Rogers 80 y/o M admitted on 11/11/20 for urinary issues. Chief Complaint: [] Interval history: Post op Constitutional Vitals: Vital Signs Temp Pulse Resp BP Pulse Ox 98.3 F 93 H 20 109/78 93 11/18/20 12:00 11/18/20 12:00 11/18/20 12:00 11/18/20 12:00 11/18/20 12:00 Period Temp Pulse Resp BP Sys/Barrera Pulse Ox Last 24 Hr 97.0 F-98.3 F 87-99 14-20 107-137/73-87 93-96 Intake and Output 11/18/20 11/18/20 11/18/20 05:59 13:59 21:59 Intake Total 720 250 Output Total 200 100 Balance 520 150 Intake & Output: Intake & Output 11/18/20 11/18/20 11/18/20 05:59 13:59 21:59 Intake Total 720 250 Output Total 200 100 Balance 520 150 Intake: IV 520 50 Potassium Chloride 40 Meq In 520 Dextrose 5% in Water 500 ml @ 130 mls/hr IV UD PRN Rx#: [id number] Rocephin 2 gm In Dextrose 5% in 50 Water 50 ml @ 100 mls/hr IV Q24H [facility] Rx#:[id number] Oral 200 200 Output: Void Amount 200 100 Other: Meal Breakfast Percent of Meal Consumed 10% Feeding Ability Assist with Tray Set Up Urine Color Tea Colored Urine Odor Strong # Voids 1 A/P Time Spent With Patient Time: Total time spent is greater than 50% in coordination of care (as documented) at patient's floor/unit and/or counseling patient:
--- NOTE | 2020-11-18 17:09 | Internal Med Progress Note ---
SUBJECTIVE Subjective Patient information: Note initiated : 11/18/20 at 5:05 pm Service Date, if different from initiated Date: [] Patient: Sylvester Rogers 80 y/o M admitted on 11/11/20 for urinary issues. Chief Complaint: [Cecal mass, s/p hemicolectomy by general surgeon on 11/14/20] Overnight: Tolerating diet. Afebrile. Otherwise there was no other major overnight events. Subjective: Mild sharp/cramping pain of bilateral lower quadrant abdomen. Able to urinate spontaneously. Denies fever or chills. Constitutional Vitals: Vital Signs Temp Pulse Resp BP Pulse Ox 36.8 C 93 H 20 109/78 93 11/18/20 12:00 11/18/20 12:00 11/18/20 12:00 11/18/20 12:00 11/18/20 12:00 Period Temp Pulse Resp BP Sys/Barrera Pulse Ox Last 24 Hr 36.1 C-36.8 C 87-99 14-20 107-119/73-78 93-95 Intake and Output 11/18/20 11/18/20 11/18/20 05:59 13:59 21:59 Intake Total 720 250 Output Total 200 100 Balance 520 150 Intake & Output: Intake & Output 11/18/20 11/18/20 11/18/20 05:59 13:59 21:59 Intake Total 720 250 Output Total 200 100 Balance 520 150 Intake: IV 520 50 Potassium Chloride 40 Meq In 520 Dextrose 5% in Water 500 ml @ 130 mls/hr IV UD PRN Rx#: [id number] Rocephin 2 gm In Dextrose 5% in 50 Water 50 ml @ 100 mls/hr IV Q24H [facility] Rx#:[id number] Oral 200 200 Output: Void Amount 200 100 Other: Meal Breakfast Percent of Meal Consumed 10% Feeding Ability Assist with Tray Set Up Urine Color Tea Colored Urine Odor Strong # Voids 1 General appearance: cooperative and no acute distress Head Head exam: Present atraumatic and normocephalic Eye Eye exam: Present EOMI and PERRL ENT ENT exam: Present mucous membranes moist, normal exam and normal external ear exam Neck Neck exam: Present normal inspection; Absent lymphadenopathy, tenderness and thyromegaly Respiratory Respiratory exam: Absent accessory muscle use, respiratory distress and wheezes Cardiovascular Cardiovascular exam: Present normal rate and rhythm; Absent JVD GI/Abdominal GI/Abdominal exam: Present normal bowel sounds, soft and tenderness; Absent organomegaly Additional comments: surgical incision, no signs of wound dishesion. Abdominal binder in place. Rectal Rectal exam: Present deferred Extremities Exam Extremities exam: Present full ROM, normal capillary refill and normal inspection; Absent tenderness Neurological Exam Neurological exam: Present alert, CN II-XII intact and oriented X3; Absent motor sensory deficit Psychiatric Psychiatric exam: Present normal affect and normal mood; Absent anxious and depressed Skin Skin exam: Present dry and intact OBJ DATA Labs CBC & Chem 7: 11/18/20 10:02 11/18/20 10:01 Labs: Abnormal Lab Results 11/18/20 11/18/20 11/17/20 10:02 10:01 05:20 RBC Hgb 10.6 L 10.2 L Hct 37.4 L 35.7 L MCV 76.5 L 76.3 L MCH 21.7 L 21.8 L MCHC 28.3 L 28.6 L RDW 26.7 H 26.1 H Neut % (Auto) 78.9 H 78.2 H Lymph % (Auto) 11.2 L 12.0 L Lymph # (Auto) 1.21 L 1.13 L Absolute Neutrophils 8.53 H Glucose 129 H Calcium Phosphorus AST 41 H Total Protein 11/16/20 11/16/20 05:06 05:06 RBC 4.21 L Hgb 9.2 L Hct 32.1 L MCV 76.2 L MCH 21.9 L MCHC 28.7 L RDW 24.7 H Neut % (Auto) 79.3 H Lymph % (Auto) 10.9 L Lymph # (Auto) 1.04 L Absolute Neutrophils Glucose Calcium 8.1 L Phosphorus 2.2 L AST Total Protein 5.8 L Meds: Medications Furosemide (Furosemide 40 Mg Tablet) 40 mg PO BIDD [facility] Last Admin: 11/18/20 11:24 Dose: 40 mg Documented by: Heparin Sodium (Porcine) (Heparin 5,000 Unit/Ml Vial) 5,000 unit SQ Q12 [facility] Last Admin: 11/18/20 11:37 Dose: 5,000 unit Documented by: Ceftriaxone Sodium 2 gm/ (Dextrose) 50 mls @ 100 mls/hr IV Q24H [facility]; Protocol Last Infusion: 11/18/20 11:32 Dose: Infused Documented by: Magnesium Sulfate (Magnesium Sulfate) 2 gm in 50 mls @ 50 mls/hr IV UD PRN PRN Reason: MG = or < 1.7 Potassium Chloride 40 meq/ (Dextrose) 520 mls @ 130 mls/hr IV UD PRN PRN Reason: K+ = or < 3.5 Last Infusion: 11/18/20 04:13 Dose: Infused Documented by: Acetaminophen (Ofirmev) 650 mg in 65 mls @ 130 mls/hr IV Q6HP PRN; Protocol PRN Reason: Per Pain Protocol/Fever > 101 Last Infusion: 11/17/20 09:18 Dose: Infused Documented by: Iron Carb/Multivit/Web Sizer/Folic Acid (Multivit,Ther Iron,Ca,Fa & Min 1 Tablet) 1 tab PO DAILY [facility] Last Admin: 11/18/20 11:24 Dose: 1 tab Documented by: Melatonin (Melatonin 3 Mg Tablet) 3 mg PO HSP PRN PRN Reason: Insomnia Last Admin: 11/17/20 19:45 Dose: 3 mg Documented by: Ondansetron HCl (Ondansetron 4 Mg Odt Tablet) 4 mg SL Q4-6HP PRN; Protocol PRN Reason: Nausea And Vomiting Ondansetron HCl (Ondansetron 4 Mg/2 Ml Vial) 4 mg IV Q4-6HP PRN; Protocol PRN Reason: Nausea And Vomiting Last Admin: 11/17/20 06:07 Dose: 4 mg Documented by: Oxycodone HCl (Oxycodone Hcl 5 Mg Tablet) 10 mg PO Q4HP PRN PRN Reason: PAIN LEVEL 3-6 Last Admin: 11/18/20 11:23 Dose: 10 mg Documented by: Pantoprazole Sodium (Pantoprazole 40 Mg Vial) 40 mg IV BIDAC [facility] Last Admin: 11/18/20 07:34 Dose: 40 mg Documented by: Sodium Chloride (0.9 % Sodium Chloride 10 Ml Syringe) 10 ml IV Q8 [facility] Last Admin: 11/18/20 15:13 Dose: 10 ml Documented by: Tamsulosin HCl (Tamsulosin 0.4 Mg Capsule) 0.4 mg PO HS [facility] Last Admin: 11/17/20 19:45 Dose: 0.4 mg Documented by: A/P Assessment and plan (1) 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 POD#[address] Suárez (11/14/20) Oxycodone 10mg PO q4hr PRN moderate pain Clear liquid diet, advance if and when instructed by surgeon Rocephin as surgical prophylaxis Tylenol PRN fever cbc w/ auto diff in the AM to trend WBC PT OR evaluation and treatment: recs. HH PT upon discharge 2. Anemia: Likely secondary to post surgical blood loss anemia cbc w/ auto diff in the AM to trend H/H; transfuse pRBC if hemoglobin <7.0, active blood loss, or if patient becomes symptomatic 3. Recent urinary retention due to enlarged prostate: Urology consulted, recs. appreciated Currently urinating spontaneously, continue to monitor Time Spent With Patient Time: Total time spent is greater than 50% in coordination of care (as documented) at patient's floor/unit and/or counseling patient: QUALITY Stroke Symptom Onset Unknown: No VTE Deep Vein Thrombosis/Pulmonary Embolism Present on Admission: No
[2020-11-18] MEDS: MELATONIN 3 MG TABLET PO PRN (20:39)
[2020-11-18] MEDS: TAMSULOSIN 0.4 MG CAPSULE PO SCH (20:39)
[2020-11-19] MEDS: oxyCODONE HCL 5 MG TABLET PO PRN ×4 (04:22→21:39)
[2020-11-19] MEDS: 0.9 % SODIUM CHLORIDE 10 ML SYRINGE IV SCH ×3 (04:22→21:55)
[2020-11-19 06:32] LABS: Basophils # (Auto) 0.04 K/mcL (0.00-0.20); Basophils % (Auto) 0.4 % (0.0-2.0); Eosinophils # (Auto) 0.28 K/mcL (0.00-0.70); Hematocrit 34.4 % (41.0-55.0); Hemoglobin 9.7 g/dL (13.5-16.5); Lymphocytes # (Auto) 1.23 K/mcL (1.50-4.80); Lymphocytes % (Auto) 13.2 % (15.0-49.0); Mean Cell Volume 77.7 fL (80.0-100.0); Mean Corpuscular HGB Conc 28.2 g/dL (31.0-36.0); Mean Platelet Volume 10.1 fL (7.4-10.4); Monocytes # (Auto) 0.78 K/mcL (0.10-0.90); Monocytes % (Auto) 8.4 % (1.0-12.0); Platelet Count 264 K/mcL (140-440); RBC 4.43 M/mcL (4.50-5.90); Red Cell Distribution Width 27.1 % (11.5-14.5); WBC 9.3 K/mcL (4.5-11.0)
[2020-11-19 08:18] LABS: ALT/SGPT 50 U/L (<40); AST/SGOT 51 U/L (<40); Albumin 3.3 gm/dL (3.2-5.2); Albumin/Globulin Ratio 1.1 (1.0-2.3); Alkaline Phosphatase 83 U/L (39-117); Bilirubin,Total 0.5 mg/dL (0.1-1.0); Blood Urea Nitrogen 20 mg/dL (8-23); Calcium 8.6 mg/dL (8.6-10.4); Carbon Dioxide 30 mmol/L (22-30); Chloride 101 mmol/L (96-108); Glomerular Filtration Rate 90; Glucose 105 mg/dL (70-105)
[2020-11-19] MEDS: cefTRIAXone 2 GM in DEXTROSE 5% IN WATER 50 ML IV SCH (09:10)
[2020-11-19] MEDS: FUROSEMIDE 40 MG TABLET PO SCH ×2 (09:11→17:32)
[2020-11-19] MEDS: MULTIVIT,THER IRON,CA,FA & MIN 1 TABLET PO SCH (09:11)
[2020-11-19] MEDS: HEPARIN 5,000 UNIT/ML VIAL SQ SCH ×2 (09:12→21:38)
[2020-11-19] MEDS: PANTOPRAZOLE 40 MG VIAL IV SCH ×2 (09:17→17:33)
--- NOTE | 2020-11-19 10:42 | General Surgery Progress Note ---
SUBJECTIVE Subjective Patient information: Note initiated : 11/19/20 at 10:38 am Service Date, if different from initiated Date: [] Patient: Sylvester Rogers 80 y/o M admitted on 11/11/20 for urinary issues. Chief Complaint: [] Interval history: Patient with voiding symptoms and found to have marginal cystoscopy and atypical urine cytology Constitutional Vitals: Vital Signs Temp Pulse Resp BP Pulse Ox 98 F 84 17 96/69 90 11/19/20 08:00 11/19/20 08:00 11/19/20 08:00 11/19/20 08:00 11/19/20 08:00 Period Temp Pulse Resp BP Sys/Barrera Pulse Ox Last 24 Hr 98 F-99.3 F 84-100 - 96-118/69-78 82-94 Intake and Output 11/18/20 11/19/20 11/19/20 21:59 05:59 13:59 Intake Total 240 Output Total 750 270 100 Balance -750 -30 -100 Weight 246 lb 6 oz Intake & Output: Intake & Output 11/18/20 11/19/20 11/19/20 21:59 05:59 13:59 Intake Total 240 Output Total 750 270 100 Balance -750 -30 -100 Weight 246 lb 6 oz Intake: Oral 240 Output: Void Amount 750 270 100 Other: Urine Appearance Mucous Threads Urine Color Dark Hope Urine Odor Normal Additional findings Additional findings: AFVSS Abdomen soft and doing well with postop findings No CVA tenderness A/P Narrative A/P Narrative: Assessment: Continues to do well with postop abdominal surgery and apparently localized colon cancer Atypical cytology discussed with patient on urinalysis and patient presently continued to void well Plan: Emphasized with patient need for repeat cystoscopy in approximately 2 months pending any new problems Patient understands and agrees and follow-up in conjunction with general surgery Time Spent With Patient Time: Total time spent is greater than 50% in coordination of care (as documented) at patient's floor/unit and/or counseling patient:
--- NOTE | 2020-11-19 14:00 | General Surgery Progress Note ---
SUBJECTIVE Subjective Patient information: Note initiated : 11/19/20 at 1:58 pm Service Date, if different from initiated Date: [] Patient: Sylvester Rogers 80 y/o M admitted on 11/11/20 for urinary issues. Chief Complaint: [] Interval history: Postop right hemicolectomy for lower GI bleed and colonic mass. Pathology consistent with stage I T2 N0 M0 colon cancer. Patient is tolerating regular diet, has had a decrease in the amount of bowel movements over the last day, however no nausea or vomiting. Constitutional Vitals: Vital Signs Temp Pulse Resp BP Pulse Ox 98.5 F 91 H 17 119/75 96 11/19/20 12:00 11/19/20 12:00 11/19/20 12:00 11/19/20 12:00 11/19/20 12:00 Period Temp Pulse Resp BP Sys/Barrera Pulse Ox Last 24 Hr 98 F-99.3 F 84-100 16-22 96-119/69-75 82-96 Intake and Output 11/18/20 11/19/20 11/19/20 21:59 05:59 13:59 Intake Total 240 350 Output Total 750 270 100 Balance -750 -30 250 Weight 246 lb 6 oz Intake & Output: Intake & Output 11/18/20 11/19/20 11/19/20 21:59 05:59 13:59 Intake Total 240 350 Output Total 750 270 100 Balance -750 -30 250 Weight 246 lb 6 oz Intake: IV 50 Rocephin 2 gm In Dextrose 5% in 50 Water 50 ml @ 100 mls/hr IV Q24H [facility] Rx#:[id number] Oral 240 300 Output: Void Amount 750 270 100 Other: Meal Breakfast Percent of Meal Consumed 25% Urine Appearance Mucous Threads Urine Color Dark [place] Urine Odor Normal General appearance: cooperative and no acute distress GI/Abdominal GI/Abdominal exam: Present normal bowel sounds, soft and tenderness (Appropriately tender to palpation); Absent distended A/P Narrative A/P Narrative: Status post extended right hemicolectomy for stage I colon cancer. Awaiting full return of bowel function. We will need to increase ambulation throughout the day. Anticipate discharge once full return of bowel movements. Time Spent With Patient Time: Total time spent is greater than 50% in coordination of care (as documented) at patient's floor/unit and/or counseling patient:
--- NOTE | 2020-11-19 17:40 | Internal Med Progress Note ---
SUBJECTIVE Subjective Patient information: Note initiated : 11/19/20 at 5:36 pm Service Date, if different from initiated Date: [] Patient: Sylvester Rogers 80 y/o M admitted on 11/11/20 for urinary issues. Chief Complaint: [Cecal mass, s/p hemicolectomy 11/14/20] Overnight: Low grade fever 37.4 overnight. Otherwise there was no other major overnight events. Subjective: Mild abdominal pain around surgical incision site. Denies nausea, vomiting, diarrhea, or constipation. Low grade fever 37.4 overnight. Denies SOB. Constitutional Vitals: Vital Signs Temp Pulse Resp BP Pulse Ox 36.3 C 91 H 17 98/72 92 11/19/20 16:00 11/19/20 16:00 11/19/20 16:00 11/19/20 16:00 11/19/20 16:00 Period Temp Pulse Resp BP Sys/Barrera Pulse Ox Last 24 Hr 36.3 C-37.4 C 84-100 - 96-119/69-75 82-96 Intake and Output 11/19/20 11/19/20 11/19/20 05:59 13:59 21:59 Intake Total 240 350 0 Output Total 270 100 275 Balance -30 250 -275 Weight 111.754 kg Patient Weight 11/20/20 05:59 Weight 111.754 kg Intake & Output: Intake & Output 11/19/20 11/19/20 11/19/20 05:59 13:59 21:59 Intake Total 240 350 0 Output Total 270 100 275 Balance -30 250 -275 Weight 111.754 kg Intake: IV 50 Rocephin 2 gm In Dextrose 5% in 50 Water 50 ml @ 100 mls/hr IV Q24H [facility] Rx#:[id number] Oral 240 300 0 Output: Void Amount 270 100 275 Other: Meal Breakfast Percent of Meal Consumed 25% Urine Appearance Mucous Threads Urine Color Dark Hope Dark Yellow Urine Odor Normal General appearance: cooperative and no acute distress Head Head exam: Present atraumatic and normocephalic Eye Eye exam: Present EOMI and PERRL ENT ENT exam: Present mucous membranes moist, normal exam and normal external ear exam Neck Neck exam: Present normal inspection; Absent lymphadenopathy, tenderness and th yromegaly Respiratory Respiratory exam: Absent accessory muscle use, respiratory distress and wheezes Cardiovascular Cardiovascular exam: Present normal rate and rhythm; Absent JVD GI/Abdominal GI/Abdominal exam: Present normal bowel sounds, soft and tenderness; Absent organomegaly Additional comments: Abdominal surgical incision in place, no signs of wound dehiscence Rectal Rectal exam: Present deferred Extremities Exam Extremities exam: Present full ROM, normal capillary refill and normal inspection; Absent tenderness Neurological Exam Neurological exam: Present alert, CN II-XII intact and oriented X3; Absent motor sensory deficit Psychiatric Psychiatric exam: Present normal affect and normal mood; Absent anxious and depressed Skin Skin exam: Present dry and intact OBJ DATA Labs CBC & Chem 7: 11/19/20 04:34 11/19/20 04:34 Labs: Abnormal Lab Results 11/19/20 11/19/20 11/18/20 04:34 04:34 10:02 RBC 4.43 L Hgb 9.7 L 10.6 L Hct 34.4 L 37.4 L MCV 77.7 L 76.5 L MCH 21.9 L 21.7 L MCHC 28.2 L 28.3 L RDW 27.1 H 26.7 H Neut % (Auto) 78.9 H Lymph % (Auto) 13.2 L 11.2 L Lymph # (Auto) 1.23 L 1.21 L Absolute Neutrophils 8.53 H Anion Gap 7.0 L Glucose AST 51 H ALT 50 H 11/18/20 11/17/20 10:01 05:20 RBC Hgb 10.2 L Hct 35.7 L MCV 76.3 L MCH 21.8 L MCHC 28.6 L RDW 26.1 H Neut % (Auto) 78.2 H Lymph % (Auto) 12.0 L Lymph # (Auto) 1.13 L Absolute Neutrophils Anion Gap Glucose 129 H AST 41 H ALT Meds: Medications Furosemide (Furosemide 40 Mg Tablet) 40 mg PO BIDD [facility] Last Admin: 11/19/20 17:32 Dose: 40 mg Documented by: Heparin Sodium (Porcine) (Heparin 5,000 Unit/Ml Vial) 5,000 unit SQ Q12 [facility] Last Admin: 11/19/20 09:12 Dose: 5,000 unit Documented by: Ceftriaxone Sodium 2 gm/ (Dextrose) 50 mls @ 100 mls/hr IV Q24H [facility]; Protocol Last Infusion: 11/19/20 09:40 Dose: Infused Documented by: Magnesium Sulfate (Magnesium Sulfate) 2 gm in 50 mls @ 50 mls/hr IV UD PRN PRN Reason: MG = or < 1.7 Potassium Chloride 40 meq/ (Dextrose) 520 mls @ 130 mls/hr IV UD PRN PRN Reason: K+ = or < 3.5 Last Infusion: 11/18/20 04:13 Dose: Infused Documented by: Acetaminophen (Ofirmev) 650 mg in 65 mls @ 130 mls/hr IV Q6HP PRN; Protocol PRN Reason: Per Pain Protocol/Fever > 101 Last Infusion: 11/17/20 09:18 Dose: Infused Documented by: Iron Carb/Multivit/Clinical Staff Anesthesiologist/Folic Acid (Multivit,Ther Iron,Ca,Fa & Min 1 Tablet) 1 tab PO DAILY [facility] Last Admin: 11/19/20 09:11 Dose: 1 tab Documented by: Melatonin (Melatonin 3 Mg Tablet) 3 mg PO HSP PRN PRN Reason: Insomnia Last Admin: 11/18/20 20:39 Dose: 3 mg Documented by: Ondansetron HCl (Ondansetron 4 Mg Odt Tablet) 4 mg SL Q4-6HP PRN; Protocol PRN Reason: Nausea And Vomiting Ondansetron HCl (Ondansetron 4 Mg/2 Ml Vial) 4 mg IV Q4-6HP PRN; Protocol PRN Reason: Nausea And Vomiting Last Admin: 11/17/20 06:07 Dose: 4 mg Documented by: Oxycodone HCl (Oxycodone Hcl 5 Mg Tablet) 10 mg PO Q4HP PRN PRN Reason: PAIN LEVEL 3-6 Last Admin: 11/19/20 17:33 Dose: 10 mg Documented by: Pantoprazole Sodium (Pantoprazole 40 Mg Vial) 40 mg IV BIDAC [facility] Last Admin: 11/19/20 17:33 Dose: 40 mg Documented by: Sodium Chloride (0.9 % Sodium Chloride 10 Ml Syringe) 10 ml IV Q8 [facility] Last Admin: 11/19/20 17:32 Dose: 10 ml Documented by: Tamsulosin HCl (Tamsulosin 0.4 Mg Capsule) 0.4 mg PO HS [facility] Last Admin: 11/18/20 20:39 Dose: 0.4 mg Documented by: A/P Assessment and plan (1) 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 s/p hemicolectomy by Dr. Suárez (11/14/20) Oxycodone 10mg PO q4hr PRN moderate pain Clear liquid diet, advance if and when instructed by surgeon Rocephin as surgical prophylaxis Tylenol PRN fever cbc w/ auto diff in the AM to trend WBC PT OR evaluation and treatment: recs. HH PT upon discharge 2. Anemia: Likely secondary to post surgical blood loss anemia cbc w/ auto diff in the AM to trend H/H; transfuse pRBC if hemoglobin <7.0, active blood loss, or if patient becomes symptomatic 3. Recent urinary retention due to enlarged prostate: Urology consulted, recs. appreciated Currently urinating spontaneously, continue to monitor Time Spent With Patient Time: Total time spent is greater than 50% in coordination of care (as documented) at patient's floor/unit and/or counseling patient: Total time spent with greater than 50% in coordination of care (as documented) at patient's floor/unit and/or counseling patient:: less than 15 minutes QUALITY Stroke Symptom Onset Unknown: No VTE Deep Vein Thrombosis/Pulmonary Embolism Present on Admission: No
[2020-11-19] MEDS: TAMSULOSIN 0.4 MG CAPSULE PO SCH (21:38)
[2020-11-19] MEDS: MELATONIN 3 MG TABLET PO PRN (21:39)
[2020-11-20] MEDS: oxyCODONE HCL 5 MG TABLET PO PRN (02:02)
[2020-11-20] MEDS: 0.9 % SODIUM CHLORIDE 10 ML SYRINGE IV SCH (05:54)
[2020-11-20] MEDS: PANTOPRAZOLE 40 MG VIAL IV SCH (07:30)
--- NOTE | 2020-11-20 07:42 | General Surgery Progress Note ---
SUBJECTIVE Subjective Patient information: Note initiated : 11/20/20 at 7:41 am Service Date, if different from initiated Date: [] Patient: Sylvester Rogers 80 y/o M admitted on 11/11/20 for urinary issues. Chief Complaint: [] Interval history: Patient feels much improved today, is tolerating regular diet, had multiple bowel movements, is able to ambulate in the hallway multiple times yesterday. Constitutional Vitals: Vital Signs Temp Pulse Resp BP Pulse Ox 98.2 F 88 16 98/68 91 11/20/20 07:27 11/20/20 07:27 11/20/20 07:27 11/20/20 07:27 11/20/20 07:27 Period Temp Pulse Resp BP Sys/Barrera Pulse Ox Last 24 Hr 97.3 F-99.5 F 84-96 - 96-119/68-77 90-96 Intake and Output 11/19/20 11/20/20 11/20/20 21:59 05:59 13:59 Intake Total 0 240 Output Total 601 300 Balance -601 -60 Weight 246 lb 6 oz Intake & Output: Intake & Output 11/19/20 11/20/20 11/20/20 21:59 05:59 13:59 Intake Total 0 240 Output Total 601 300 Balance -601 -60 Weight 246 lb 6 oz Intake: Oral 0 240 Output: Void Amount 600 300 Urine/Stool Mix 1 Other: Urine Color Dark Yellow Stool Size Moderate Small Stool Color Green Green Stool Consistency Loose Loose # Bowel Movements 1 General appearance: cooperative and no acute distress GI/Abdominal GI/Abdominal exam: Present soft; Absent distended and tenderness Additional comments: Incision is clean dry and intact A/P Narrative A/P Narrative: This is a pleasant 80-year-old gentleman postop from a right hemicolectomy for stage I colon cancer. Patient is now tolerating p.o. diet, ambulatory, pain under control and is clear for discharge from surgical standpoint. Follow-up with me in clinic in 1 week. Time Spent With Patient Time: Total time spent is greater than 50% in coordination of care (as documented) at patient's floor/unit and/or counseling patient:
[2020-11-20] MEDS: FUROSEMIDE 40 MG TABLET PO SCH (08:30)
[2020-11-20] MEDS: MULTIVIT,THER IRON,CA,FA & MIN 1 TABLET PO SCH (08:30)
[2020-11-20] MEDS: HEPARIN 5,000 UNIT/ML VIAL SQ SCH (08:30)
[2020-11-20] MEDS: cefTRIAXone 2 GM in DEXTROSE 5% IN WATER 50 ML IV SCH (09:32)
--- NOTE | 2020-11-20 11:14 | XRay Report ---
HISTORY: Short of breath, pneumonia versus atelectasis FINDINGS: Lung volumes are small due to poor inspiration. However, there is better expansion of both lungs today than there was on 11/15/20. The vague right upper lobe infiltrates seen on the prior exam has resolved. There are small bands of discoid atelectasis in both lung bases which have also improved. The heart size is normal. There is no pulmonary vascular congestion. The aorta is tortuous. There are few old healed rib fractures laterally in the right lower thorax. IMPRESSION: Resolved right upper lobe pneumonia and improving discoid atelectasis in both lower lobes Interpreted and Authenticated by: Torsten Martinez 11/20/20
--- NOTE | 2020-11-20 14:48 | Discharge Summary ---
Discharge Provider Provider Patient information: Note initiated : 11/20/20 at 2:47 pm Service Date, if different from initiated Date: [] Patient: Sylvester Rogers 80 y/o M admitted on 11/11/20 for urinary issues. Chief Complaint: [Urinary retention. Cecal mass] Date of admission: 11/11/20 18:21 Discharge date: 11/20/20 Primary care physician: Torsten Gill Consults: 11/11/20 Consult to Physician [CONS] Stat Comment: Consulting Provider: Sahil Suárez Reason For Exam: Physician to Consult 11/11/20 15:58 Consult to Physician [CONS] Stat Comment: Consulting Provider: Vernon Pinto Reason For Exam: Physician to Consult 11/12/20 13:19 Consult to Physician [CONS] Routine Comment: Consulting Provider: Titi Faustin Reason For Exam: Physician to Consult Discharge Meds Discharge Medications Home Medications aspirin 81 mg PO QDAY 11/11/20 [History Confirmed 11/11/20 Last Taken Unknown] cholecalciferol (vitamin D3) [Vitamin D3] 100 mcg PO QDAY 11/11/20 [History Confirmed 11/11/20 Last Taken Unknown] doxazosin 1 mg PO QHS 11/11/20 [History Confirmed 11/11/20 Last Taken Unknown] saw palmetto-pumpkin seed oil 160 cap PO DAILY 11/11/20 [History Confirmed 11/11/20 Last Taken Unknown] sildenafil 100 mg PO QDAY PRN 11/11/20 [History Confirmed 11/11/20 Last Taken Unknown] oxycodone 10 mg PO Q4HP PRN 7 Days #20 tab 11/20/20 [Rx Last Taken Unknown] COURSE Hospital Course Hospital course: Patient had bloody stool. Colonoscopy was performed and a cecal mass was found. Hemicolectomy was performed on 11/14/[address] Suárez. Pathology report showed invasive moderately differentiated adenocarcinoma. Gradual diet advancement and narcotics for pain control were administered. By 11/20/20, patient became afebrile, any leukocytosis resolved, tolerating regular diet, had bowel movements, and pain controlled without IV narcotics. She thus reached clinical stability. Physical therapy was consulted who recommended SNF placement upon discharged. The decision was made to discharge him to SNF with follow up appointment with Dr. Suárez in 1 week, PCP in 2 week, and outpatient cystoscopy on 01/01/2021. All questions were answered prior to patient being physically discharged. Discharge diagnosis: Cecal adenocarcinoma Time Spent with Patient Time attestation: Total time spent providing and/or coordinating discharge services: Time spent: Less than 30 minutes EXAM Constitutional Vitals: Temp Pulse Resp BP Pulse Ox 36.4 C 109 H 18 88/60 91 11/20/20 11:59 11/20/20 11:59 11/20/20 11:59 11/20/20 11:59 11/20/20 11:59 General appearance: cooperative and no acute distress Head Head exam: Present atraumatic and normocephalic Eye Eye exam: Present EOMI and PERRL ENT ENT exam: Present mucous membranes moist, normal exam and normal external ear exam Neck Neck exam: Present normal inspection; Absent lymphadenopathy, tenderness and thyromegaly Respiratory Respiratory exam: Absent accessory muscle use, respiratory distress and wheezes Cardiovascular Cardiovascular exam: Present normal rate and rhythm; Absent JVD GI/Abdominal GI/Abdominal exam: Present normal bowel sounds and soft; Absent organomegaly and tenderness Rectal Rectal exam: Present deferred Extremities Exam Extremities exam: Present full ROM, normal capillary refill and normal inspection; Absent tenderness Neurological Exam Neurological exam: Present alert, CN II-XII intact and oriented X3; Absent motor sensory deficit Psychiatric Psychiatric exam: Present normal affect and normal mood; Absent anxious and depressed Skin Skin exam: Present dry and intact Discharge Data Data Completed and Pending Labs on day of discharge: Preliminary micro results at discharge 11/15/20 21:41 Blood Culture - Preliminary Blood 11/15/20 21:41 Blood Culture - Preliminary Blood 11/15/20 21:36 Blood Culture - Preliminary Blood 11/15/20 21:36 Blood Culture - Preliminary Blood Discharge Plan Patient/Caregiver Discharge Instructions Activity: as per physical therapy Diet: Regular Diet Instructions: Cystoscopy (DC), Bowel Resection (DC) Activity Restrictions/Additional Instructions: [address] Suárez follow up. Cystoscopy appointment with urology on January 11, 2021. 2 week PCP follow up appointment. Might need supplemental oxygen when ambulate. This discharge packet is provided to you to help keep you informed about your care. We want to ensure you get everything you need when you go home. You will also be receiving a call from us in a few days to follow up with you and see how you are doing since your discharge. This gives us a chance to listen to any concerns you maybe experiencing since you were discharged or any additional needs you may have, as well as providing us feedback on your care experience. We strive to always provide excellent care and thank you for your feedback and for choosing [facility]. Prescriptions: New oxycodone 5 mg Tablet 10 mg PO Q4HP PRN (Reason: Pain Level 3-6) 7 Days Qty: 20 RF: 0 Continued doxazosin 1 mg Tablet 1 mg PO QHS RF: 0 aspirin 81 mg Tablet,Delayed Release (Dr/Ec) 81 mg PO QDAY RF: 0 sildenafil 100 mg Tablet 100 mg PO QDAY PRN (Reason: Erectile Dysfunction) RF: 0 saw palmetto-pumpkin seed oil 160 mg Capsule 160 cap PO DAILY RF: 0 cholecalciferol (vitamin D3) [Vitamin D3] 50 mcg (2,000 unit) Capsule 100 mcg PO QDAY RF: 0 Follow Up Plan Follow up with: Sahil Suárez MD [Physician] - 11/27/20 9:45 am Titi Faustin MD [Physician] - 01/11/21 2:00 pm Torsten Gill ARNP [Primary Care Provider] - 11/20/20 10:30 am (This will be a phone appointment) Patient Disposition: Xfer SNF Prognosis: Good Rehab Potential: Good Overall status at discharge: patient is back to baseline Discharge Orders: Discharge Order (Routine); Ordered 11/20/20 Ordered By: Jae SMITH VTE Deep Vein Thrombosis/Pulmonary Embolism Present on Admission: No
== END 2020-11-20 15:15 | DRG 330 ==
LOC: ICU 13:16 → ED 13:16 → ICU 18:11 → OBSVTOIN 18:21 → ICU 11-14 12:25 → MEDSUR 11-16 14:20
PROVIDERS: ADMIT Internal Medicine; ATTEND Internal Medicine

== ENCOUNTER 2023-03-15 11:00 | Inpatient (IN) ==
[2023-03-15] MEDS ORDERED: IOPAMIDOL 100 ML BOTTLE IV ONE (11:01)
[2023-03-15] MEDS ORDERED: ONDANSETRON 4 MG/2 ML VIAL IV ONE ×2 (11:24→11:59)
[2023-03-15] MEDS ORDERED: 0.9 % SODIUM CHLORIDE 1,000 ML IV ONE (11:24)
[2023-03-15] MEDS ORDERED: morphine 4 MG/ML VIAL IV ONE (11:24)
[2023-03-15 11:46] LABS: POC Calcium, Ionized 1.01 (1.16-1.32); POC Creatinine 1.5 (0.6-1.2); POC Potassium 4.3 (3.3-5.1)
[2023-03-15 12:34] LABS: Basophils # (Auto) 0.02 K/mcL (0.00-0.30); Basophils % (Auto) 0.3 % (0.0-2.0); Eosinophils # (Auto) 0 K/mcL (0.00-0.70); Eosinophils % (Auto) 0 % (0.0-7.0); Hematocrit 44.6 % (40.1-51.0); Lymphocytes # (Auto) 0.56 K/mcL (1.50-4.80); Lymphocytes % (Auto) 7.2 % (15.5-49.0); Mean Cell Volume 92.9 fL (80.0-100.0); Mean Corpuscular HGB Conc 33.6 g/dL (31.0-36.0); Mean Platelet Volume 9.6 fL (8.8-12.5); Monocytes # (Auto) 0.67 K/mcL (0.10-0.90); Monocytes % (Auto) 8.6 % (1.0-12.0); Neutrophils % (Auto) 82.9 % (38.0-78.0); Platelet Count 160 K/mcL (140-440); Red Cell Distribution Width 13.2 % (11.5-14.5); WBC 7.8 K/mcL (4.5-11.0)
[2023-03-15 12:58] LABS: ALT/SGPT 23 U/L (<40); AST/SGOT 28 U/L (<40); Albumin 3.7 gm/dL (3.2-5.2); Alkaline Phosphatase 72 U/L (39-117); Bilirubin,Direct 0.3 mg/dL (<0.3); Globulin 3.3 gm/dL (2.2-3.7)
[2023-03-15] MEDS ORDERED: HEPARIN 5,000 UNIT/ML VIAL IV ONE (15:04)
[2023-03-15] MEDS ORDERED: HEPARIN SOD,PORK IN 0.45% NACL 25,000 UNIT in PREMIX 1 BAG IV SCH (15:15)
[2023-03-15 15:48] LABS: Appearance,Urine HAZY (Clear); Bilirubin,Urine Negative (Negative); Color,Urine YELLOW; Culture Indicated,Urine yes; Glucose,Urine (UA) Negative (Negative); Ketones,Urine Negative (Negative); Leukocyte Esterase,Urine 75 /uL (Negative); Mucus,Urine FEW /hpf; Nitrate,Urine Negative (Negative); Protein,Urine Negative (Negative); Specific Gravity,Urine 1.043 (1.000-1.035); Urine Blood >=1.0 mg/dL (Negative); Urine RBC 22 /hpf (0-3); Urine Squamous Epithelial Cell 0 /hpf (0-4); Urine WBC 22 /hpf (0-4); Urobilinogen,Urine Negative
[2023-03-15] MEDS ORDERED: MAG HYDROX/AL HYDROX/SIMETH 30 ML ORAL.SUSP PO PRN (20:28)
[2023-03-15] MEDS ORDERED: ONDANSETRON 4 MG/2 ML VIAL IV PRN (20:28)
[2023-03-15] MEDS ORDERED: IPRATROPIUM/ALBUTEROL 3 ML AMPUL.NEB NEB PRN (20:28)
[2023-03-15] MEDS: LACTATED RINGERS 1,000 ML IV SCH (20:41)
[2023-03-15] MEDS: 0.9 % SODIUM CHLORIDE 10 ML SYRINGE IV SCH (20:47)
[2023-03-15 20:57] LABS: ALT/SGPT 29 U/L (<40); AST/SGOT 33 U/L (<40); Albumin 3.6 gm/dL (3.2-5.2); Alkaline Phosphatase 73 U/L (39-117); Blood Urea Nitrogen 27 mg/dL (8-23); Calcium 8.6 mg/dL (8.6-10.4); Carbon Dioxide 19 mmol/L (22-30); Chloride 103 mmol/L (96-108); Globulin 3.5 gm/dL (2.2-3.7); Glomerular Filtration Rate 47; Glucose 145 mg/dL (70-105)
[2023-03-15 21:36] LABS: INR 1.2 (0.9-1.1); Partial Thromboplastin Time 57.1 sec (20.0-37.0); Prothrombin Time 15.5 sec (11.9-14.5)
[2023-03-15] MEDS ORDERED: HEPARIN 5,000 UNIT/ML VIAL ONE (21:56)
[2023-03-15] MEDS: cefTRIAXone 1 GM VIAL IV SCH (22:01)
[2023-03-15] MEDS: ACETAMINOPHEN 325 MG TABLET PO PRN (23:41)
[2023-03-16] MEDS: 0.9 % SODIUM CHLORIDE 10 ML SYRINGE IV SCH ×3 (04:48→20:46)
[2023-03-16 07:37] LABS: Hematocrit 45.4 % (40.1-51.0); Hemoglobin 14.5 g/dL (13.7-17.5); Mean Cell Volume 97.8 fL (80.0-100.0); Mean Corpuscular HGB Conc 31.9 g/dL (31.0-36.0); Mean Platelet Volume 10.2 fL (8.8-12.5); Platelet Count 133 K/mcL (140-440); RBC 4.64 M/mcL (4.63-6.08); WBC 6.9 K/mcL (4.5-11.0)
[2023-03-16] MEDS: ACETAMINOPHEN 325 MG TABLET PO PRN ×2 (08:26→18:00)
[2023-03-16] MEDS: PANTOPRAZOLE 40 MG TABLET PO SCH (08:26)
[2023-03-16 09:32] LABS: ALT/SGPT 30 U/L (<40); AST/SGOT 41 U/L (<40); Albumin 3.1 gm/dL (3.2-5.2); Albumin/Globulin Ratio 0.9 (1.0-2.3); Alkaline Phosphatase 64 U/L (39-117); Bilirubin,Total 0.7 mg/dL (0.1-1.0); Blood Urea Nitrogen 26 mg/dL (8-23); Carbon Dioxide 22 mmol/L (22-30); Chloride 104 mmol/L (96-108); Globulin 3.3 gm/dL (2.2-3.7); Glomerular Filtration Rate 51; Glucose 106 mg/dL (70-105)
[2023-03-16 09:58] LABS: Band Neutrophils % 12 % (0-10); Eosinophils % (Manual) 1 % (0-7); Lymphocytes % 17 % (15-49); Monocytes % (Manual) 6 % (1-12); Platelet Estimate DECREASED (Normal); RBC Morphology NORMAL (Normal); Segmented Neutrophils % 64 % (38-78)
[2023-03-16] MEDS ORDERED: HYDROmorphone 0.5 MG/0.5 ML SYRINGE IV PRN (10:06)
[2023-03-16] MEDS ORDERED: KETOROLAC 15 MG/ML VIAL IV ONE (10:15)
[2023-03-16] MEDS ORDERED: HEPARIN 5,000 UNIT/ML VIAL IV ONE (12:30)
[2023-03-16] MEDS ORDERED: KETOROLAC 15 MG/ML VIAL IV SCH (12:45)
[2023-03-16] MEDS: HEPARIN SOD,PORK IN 0.45% NACL 25,000 UNIT in PREMIX 1 BAG IV SCH ×2 (12:45→17:57)
[2023-03-16] MEDS: cefTRIAXone 1 GM VIAL IV SCH (12:45)
[2023-03-16] MEDS: LACTATED RINGERS 1,000 ML IV SCH (12:55)
[2023-03-16] MEDS ORDERED: traMADol 50 MG TABLET PO PRN (17:37)
[2023-03-16] MEDS ORDERED: HYDROCORTISONE SOD SUCC 100 MG VIAL IV ONE (17:41)
[2023-03-16] MEDS ORDERED: HEPARIN SOD,PORK IN 0.45% NACL 500 ML IV ONE (17:56)
[2023-03-17] MEDS: ACETAMINOPHEN 325 MG TABLET PO PRN ×3 (01:55→18:09)
[2023-03-17] MEDS: 0.9 % SODIUM CHLORIDE 10 ML SYRINGE IV SCH ×3 (05:41→21:14)
[2023-03-17 06:59] LABS: INR 1.1 (0.9-1.1); Partial Thromboplastin Time 57.7 sec (20.0-37.0); Prothrombin Time 14.5 sec (11.9-14.5)
[2023-03-17 07:08] LABS: Hematocrit 41.3 % (40.1-51.0); Hemoglobin 13.4 g/dL (13.7-17.5); Mean Cell Volume 95.4 fL (80.0-100.0); Mean Corpuscular HGB Conc 32.4 g/dL (31.0-36.0); Mean Platelet Volume 10.2 fL (8.8-12.5); Platelet Count 147 K/mcL (140-440); RBC 4.33 M/mcL (4.63-6.08); Red Cell Distribution Width 13.7 % (11.5-14.5); WBC 4.7 K/mcL (4.5-11.0)
[2023-03-17 07:21] LABS: ALT/SGPT 43 U/L (<40); AST/SGOT 46 U/L (<40); Albumin/Globulin Ratio 1.1 (1.0-2.3); Alkaline Phosphatase 60 U/L (39-117); Bilirubin,Total 0.4 mg/dL (0.1-1.0); Blood Urea Nitrogen 25 mg/dL (8-23); Calcium 8.2 mg/dL (8.6-10.4); Carbon Dioxide 27 mmol/L (22-30); Chloride 106 mmol/L (96-108); Globulin 2.8 gm/dL (2.2-3.7); Glomerular Filtration Rate 70; Glucose 104 mg/dL (70-105)
[2023-03-17] MEDS ORDERED: HEPARIN 5,000 UNIT/ML VIAL IV ONE (07:30)
[2023-03-17] MEDS: PANTOPRAZOLE 40 MG TABLET PO SCH (07:31)
[2023-03-17] MEDS: cefTRIAXone 1 GM VIAL IV SCH (08:20)
[2023-03-17 08:33] LABS: Band Neutrophils % 10 % (0-10); Eosinophils % (Manual) 3 % (0-7); Lymphocytes % 15 % (15-49); Monocytes % (Manual) 7 % (1-12); Platelet Estimate NORMAL (Normal); RBC Morphology NORMAL (Normal); Reactive Lymphocytes 7 % (0-2); Segmented Neutrophils % 58 % (38-78)
[2023-03-17] MEDS: HEPARIN SOD,PORK IN 0.45% NACL 25,000 UNIT in PREMIX 1 BAG IV SCH (10:17)
[2023-03-17] MEDS: APIXABAN 5 MG TABLET PO SCH ×2 (10:23→21:14)
[2023-03-18] MEDS: 0.9 % SODIUM CHLORIDE 10 ML SYRINGE IV SCH (06:01)
[2023-03-18 06:57] LABS: Hematocrit 40.5 % (40.1-51.0); Hemoglobin 13.5 g/dL (13.7-17.5); Mean Corpuscular HGB Conc 33.3 g/dL (31.0-36.0); Mean Platelet Volume 10.3 fL (8.8-12.5); Platelet Count 147 K/mcL (140-440); RBC 4.31 M/mcL (4.63-6.08); Red Cell Distribution Width 13.6 % (11.5-14.5); WBC 4.1 K/mcL (4.5-11.0)
[2023-03-18 07:22] LABS: ALT/SGPT 51 U/L (<40); AST/SGOT 53 U/L (<40); Albumin 2.9 gm/dL (3.2-5.2); Alkaline Phosphatase 68 U/L (39-117); Bilirubin,Total 0.4 mg/dL (0.1-1.0); Blood Urea Nitrogen 15 mg/dL (8-23); Calcium 8.1 mg/dL (8.6-10.4); Carbon Dioxide 27 mmol/L (22-30); Chloride 106 mmol/L (96-108); Globulin 2.8 gm/dL (2.2-3.7); Glomerular Filtration Rate 83; Glucose 96 mg/dL (70-105)
[2023-03-18 08:05] LABS: Band Neutrophils % 4 % (0-10); Eosinophils % (Manual) 4 % (0-7); Lymphocytes % 23 % (15-49); Monocytes % (Manual) 13 % (1-12); Platelet Estimate NORMAL (Normal); RBC Morphology NORMAL (Normal); Reactive Lymphocytes 7 % (0-2); Segmented Neutrophils % 49 % (38-78)
[2023-03-18] MEDS: APIXABAN 5 MG TABLET PO SCH (08:14)
[2023-03-18] MEDS: cefTRIAXone 1 GM VIAL IV SCH (08:14)
[2023-03-18] MEDS: PANTOPRAZOLE 40 MG TABLET PO SCH (08:14)
[2023-03-24] MEDS ORDERED: APIXABAN 5 MG TABLET PO SCH (09:00)
== END 2023-03-18 14:37 | disposition home health service (06) | DRG 175 ==
LOC: ED 11:00 → ICU 20:04
PROVIDERS: ADMIT Internal Medicine; ATTEND Internal Medicine

== ENCOUNTER 2024-03-26 13:40 | Inpatient (IN) ==
[2024-03-26 15:29] LABS: ALT/SGPT 35 U/L (<40); AST/SGOT 38 U/L (<40); Albumin 3.8 gm/dL (3.2-5.2); Albumin/Globulin Ratio 1.2 (1.0-2.3); Alkaline Phosphatase 80 U/L (39-117); Bilirubin,Direct 0.4 mg/dL (<0.3); Bilirubin,Total 1.1 mg/dL (0.1-1.0); Blood Urea Nitrogen 22 mg/dL (8-23); C-Reactive Protein 0.47 mg/dL (0.03-0.80); Calcium 9.8 mg/dL (8.6-10.4); Carbon Dioxide 24 mmol/L (22-30); Chloride 101 mmol/L (96-108); Globulin 3.3 gm/dL (2.2-3.7); Glomerular Filtration Rate 83; Glucose 104 mg/dL (70-105); Lactate Dehydrogenase 139 U/L (135-225); Potassium 3.5 mmol/L (3.3-5.1); Sodium 142 mmol/L (133-145); Triglycerides 84 mg/dL (<150); Uric Acid 8.7 mg/dL (2.5-8.0)
[2024-03-26] MEDS: 0.9 % SODIUM CHLORIDE 1,000 ML IV SCH (17:24)
[2024-03-26] MEDS: PANTOPRAZOLE 40 MG VIAL IV SCH (17:41)
[2024-03-26] MEDS: CEFEPIME 2 GM VIAL IV SCH (17:45)
[2024-03-26] MEDS: METOCLOPRAMIDE 10 MG/2 ML VIAL IV SCH (18:12)
[2024-03-26] MEDS: DOCUSATE SODIUM 100 MG CAPSULE PO SCH (21:44)
[2024-03-26] MEDS: 0.9 % SODIUM CHLORIDE 10 ML SYRINGE IV SCH (21:44)
[2024-03-26] MEDS: SENNOSIDES 1 TABLET PO SCH (21:44)
[2024-03-27] MEDS: ONDANSETRON 4 MG/2 ML VIAL IV PRN (03:43)
[2024-03-27 06:05] LABS: Basophils # (Auto) 0.03 K/mcL (0.00-0.30); Basophils % (Auto) 0.5 % (0.0-2.0); Eosinophils # (Auto) 0.11 K/mcL (0.00-0.70); Eosinophils % (Auto) 1.8 % (0.0-7.0); Hematocrit 42.8 % (40.1-51.0); Hemoglobin 14.2 g/dL (13.7-17.5); Lymphocytes # (Auto) 0.96 K/mcL (1.50-4.80); Lymphocytes % (Auto) 16.1 % (15.5-49.0); Mean Cell Volume 94.5 fL (80.0-100.0); Mean Corpuscular HGB Conc 33.2 g/dL (31.0-36.0); Mean Platelet Volume 10.3 fL (8.8-12.5); Monocytes # (Auto) 0.47 K/mcL (0.10-0.90); Monocytes % (Auto) 7.9 % (1.0-12.0); Neutrophils % (Auto) 73.4 % (38.0-78.0); Platelet Count 198 K/mcL (140-440); RBC 4.53 M/mcL (4.63-6.08); Red Cell Distribution Width 13.7 % (11.5-14.5)
[2024-03-28 06:04] LABS: Basophils # (Auto) 0.03 K/mcL (0.00-0.30); Basophils % (Auto) 0.5 % (0.0-2.0); Eosinophils # (Auto) 0.14 K/mcL (0.00-0.70); Eosinophils % (Auto) 2.2 % (0.0-7.0); Hematocrit 46.8 % (40.1-51.0); Hemoglobin 15.8 g/dL (13.7-17.5); Lymphocytes # (Auto) 1.26 K/mcL (1.50-4.80); Lymphocytes % (Auto) 19.7 % (15.5-49.0); Mean Cell Volume 93.8 fL (80.0-100.0); Mean Corpuscular HGB Conc 33.8 g/dL (31.0-36.0); Mean Platelet Volume 10.4 fL (8.8-12.5); Monocytes # (Auto) 0.46 K/mcL (0.10-0.90); Monocytes % (Auto) 7.2 % (1.0-12.0); Neutrophils % (Auto) 70.1 % (38.0-78.0); Platelet Count 187 K/mcL (140-440); RBC 4.99 M/mcL (4.63-6.08); Red Cell Distribution Width 13.5 % (11.5-14.5); WBC 6.4 K/mcL (4.5-11.0)
[2024-03-28 06:28] LABS: ALT/SGPT 35 U/L (<40); AST/SGOT 40 U/L (<40); Albumin 3.5 gm/dL (3.2-5.2); Albumin/Globulin Ratio 1.2 (1.0-2.3); Alkaline Phosphatase 77 U/L (39-117); Bilirubin,Direct 0.4 mg/dL (<0.3); Bilirubin,Total 1.1 mg/dL (0.1-1.0); Blood Urea Nitrogen 10 mg/dL (8-23); Calcium 8.8 mg/dL (8.6-10.4); Carbon Dioxide 24 mmol/L (22-30); Chloride 103 mmol/L (96-108); Globulin 2.9 gm/dL (2.2-3.7); Glomerular Filtration Rate 93; Glucose 102 mg/dL (70-105); Lactate Dehydrogenase 182 U/L (135-225); Phosphorous 2.5 mg/dL (2.5-4.5); Potassium 3.6 mmol/L (3.3-5.1); Sodium 140 mmol/L (133-145); Triglycerides 96 mg/dL (<150); Uric Acid 5.9 mg/dL (2.5-8.0)
[2024-03-29 05:56] LABS: Basophils # (Auto) 0.02 K/mcL (0.00-0.30); Basophils % (Auto) 0.3 % (0.0-2.0); Eosinophils # (Auto) 0.16 K/mcL (0.00-0.70); Eosinophils % (Auto) 2.8 % (0.0-7.0); Hematocrit 40.8 % (40.1-51.0); Lymphocytes # (Auto) 0.88 K/mcL (1.50-4.80); Lymphocytes % (Auto) 15.4 % (15.5-49.0); Mean Cell Volume 92.5 fL (80.0-100.0); Mean Corpuscular HGB Conc 34.3 g/dL (31.0-36.0); Mean Platelet Volume 10.3 fL (8.8-12.5); Neutrophils % (Auto) 73.8 % (38.0-78.0); Platelet Count 166 K/mcL (140-440); RBC 4.41 M/mcL (4.63-6.08); Red Cell Distribution Width 13.4 % (11.5-14.5); WBC 5.7 K/mcL (4.5-11.0)
[2024-03-29 06:18] LABS: ALT/SGPT 27 U/L (<40); AST/SGOT 32 U/L (<40); Albumin/Globulin Ratio 1.2 (1.0-2.3); Alkaline Phosphatase 68 U/L (39-117); Bilirubin,Direct 0.4 mg/dL (<0.3); Blood Urea Nitrogen 7 mg/dL (8-23); Calcium 8.4 mg/dL (8.6-10.4); Carbon Dioxide 26 mmol/L (22-30); Chloride 101 mmol/L (96-108); Globulin 2.5 gm/dL (2.2-3.7); Glomerular Filtration Rate 100; Glucose 94 mg/dL (70-105); Lactate Dehydrogenase 124 U/L (135-225); Phosphorous 2.8 mg/dL (2.5-4.5); Potassium 3.1 mmol/L (3.3-5.1); Sodium 137 mmol/L (133-145); Triglycerides 72 mg/dL (<150); Uric Acid 4.2 mg/dL (2.5-8.0)
[2024-03-29] MEDS ORDERED: SUGAMMADEX SODIUM 200 MG/2 ML VIAL IV ONE (09:42)
[2024-03-29] MEDS ORDERED: fentaNYL 100 MCG/2 ML VIAL ONE (09:42)
[2024-03-29] MEDS ORDERED: PROPOFOL 200 MG/20 ML VIAL IV ONE (09:42)
[2024-03-29] MEDS ORDERED: ROCURONIUM 10 MG/ML ML IV ONE ×3 (09:43→11:36)
[2024-03-29] MEDS ORDERED: GLYCOPYRROLATE 0.2 MG/ML VIAL IV ONE (09:43)
[2024-03-29] MEDS ORDERED: DEXAMETHASONE 10 MG/ML VIAL ONE (09:43)
[2024-03-29] MEDS ORDERED: ONDANSETRON 4 MG/2 ML VIAL ONE (09:43)
[2024-03-29] MEDS ORDERED: ePHEDrine 50 MG/5 ML SYRINGE (ANEST) IV ONE (10:53)
[2024-03-29] MEDS ORDERED: PHENYLephrine 1 MG/10 ML SYRINGE (ANEST) ONE (11:19)
[2024-03-29] MEDS ORDERED: FAMOTIDINE/PF 20 MG/2 ML VIAL IV ONE (11:38)
[2024-03-29] MEDS ORDERED: MAGNESIUM SULFATE 2 GM/50 ML BAG IV ONE (11:40)
[2024-03-29] MEDS ORDERED: ROPIVACAINE HCL/PF 30 ML VIAL IJ ONE (12:15)
[2024-03-29] MEDS ORDERED: IPRATROPIUM/ALBUTEROL 3 ML AMPUL.NEB NEB PRN (13:16)
[2024-03-29] MEDS ORDERED: fentaNYL 100 MCG/2 ML VIAL IV PRN (13:16)
[2024-03-29] MEDS: ACETAMINOPHEN 1,000 MG/100 ML BAG IV ONE (13:24)
[2024-03-29] MEDS: HYDROmorphone 0.5 MG/0.5 ML SYRINGE IV ONE (13:30)
[2024-03-29] MEDS: ONDANSETRON 4 MG/2 ML VIAL IV PRN (13:35)
[2024-03-29] MEDS: HYDROmorphone 0.5 MG/0.5 ML SYRINGE IV PRN (13:45)
[2024-03-29] MEDS ORDERED: ACETAMINOPHEN 1,000 MG/100 ML BAG IV SCH (14:00)
[2024-03-29] MEDS: LACTATED RINGERS 1,000 ML IV SCH (14:01)
[2024-03-29] MEDS: ACETAMINOPHEN 1,000 MG/100 ML BAG IV SCH (19:19)
[2024-03-30 05:41] LABS: Basophils # (Auto) 0.01 K/mcL (0.00-0.30); Basophils % (Auto) 0.1 % (0.0-2.0); Eosinophils # (Auto) 0 K/mcL (0.00-0.70); Eosinophils % (Auto) 0 % (0.0-7.0); Hematocrit 45.3 % (40.1-51.0); Hemoglobin 15.3 g/dL (13.7-17.5); Lymphocytes # (Auto) 0.79 K/mcL (1.50-4.80); Lymphocytes % (Auto) 7.2 % (15.5-49.0); Mean Corpuscular HGB Conc 33.8 g/dL (31.0-36.0); Mean Platelet Volume 10.2 fL (8.8-12.5); Monocytes # (Auto) 0.77 K/mcL (0.10-0.90); Neutrophils % (Auto) 85.5 % (38.0-78.0); Platelet Count 178 K/mcL (140-440); RBC 4.82 M/mcL (4.63-6.08); Red Cell Distribution Width 13.3 % (11.5-14.5)
[2024-03-30 06:08] LABS: ALT/SGPT 276 U/L (<40); AST/SGOT 387 U/L (<40); Albumin/Globulin Ratio 1.1 (1.0-2.3); Alkaline Phosphatase 186 U/L (39-117); Bilirubin,Total 3.7 mg/dL (0.1-1.0); Blood Urea Nitrogen 10 mg/dL (8-23); Calcium 8.5 mg/dL (8.6-10.4); Carbon Dioxide 25 mmol/L (22-30); Chloride 96 mmol/L (96-108); Globulin 2.7 gm/dL (2.2-3.7); Glomerular Filtration Rate 100; Glucose 110 mg/dL (70-105); Lactate Dehydrogenase 328 U/L (135-225); Phosphorous 3.3 mg/dL (2.5-4.5); Potassium 4.7 mmol/L (3.3-5.1); Sodium 133 mmol/L (133-145); Triglycerides 55 mg/dL (<150); Uric Acid 3.9 mg/dL (2.5-8.0)
[2024-03-31 05:50] LABS: Basophils # (Auto) 0.01 K/mcL (0.00-0.30); Basophils % (Auto) 0.1 % (0.0-2.0); Eosinophils # (Auto) 0.05 K/mcL (0.00-0.70); Eosinophils % (Auto) 0.7 % (0.0-7.0); Hematocrit 40.2 % (40.1-51.0); Hemoglobin 13.7 g/dL (13.7-17.5); Lymphocytes # (Auto) 0.63 K/mcL (1.50-4.80); Lymphocytes % (Auto) 8.4 % (15.5-49.0); Mean Cell Volume 92.2 fL (80.0-100.0); Mean Corpuscular HGB Conc 34.1 g/dL (31.0-36.0); Mean Platelet Volume 10.3 fL (8.8-12.5); Monocytes # (Auto) 0.51 K/mcL (0.10-0.90); Monocytes % (Auto) 6.8 % (1.0-12.0); Neutrophils % (Auto) 83.6 % (38.0-78.0); Platelet Count 179 K/mcL (140-440); RBC 4.36 M/mcL (4.63-6.08); Red Cell Distribution Width 13.6 % (11.5-14.5); WBC 7.5 K/mcL (4.5-11.0)
[2024-03-31 06:17] LABS: ALT/SGPT 170 U/L (<40); AST/SGOT 123 U/L (<40); Albumin 2.8 gm/dL (3.2-5.2); Albumin/Globulin Ratio 1.4 (1.0-2.3); Alkaline Phosphatase 156 U/L (39-117); Bilirubin,Direct 0.8 mg/dL (<0.3); Bilirubin,Total 1.3 mg/dL (0.1-1.0); Blood Urea Nitrogen 11 mg/dL (8-23); Carbon Dioxide 24 mmol/L (22-30); Chloride 98 mmol/L (96-108); Glomerular Filtration Rate 110; Glucose 100 mg/dL (70-105); Lactate Dehydrogenase 121 U/L (135-225); Phosphorous 1.8 mg/dL (2.5-4.5); Potassium 3.5 mmol/L (3.3-5.1); Sodium 134 mmol/L (133-145); Triglycerides 85 mg/dL (<150); Uric Acid 3.4 mg/dL (2.5-8.0)
[2024-03-31] MEDS: SCOPOLAMINE 1 PATCH PATCH TOPICAL SCH (14:54)
[2024-03-31] MEDS: POTASSIUM PHOSPHATE 40 MEQ in DEXTROSE 5% IN WATER 500 ML IV SCH (17:40)
[2024-03-31] MEDS: MAGNESIUM HYDROXIDE 30 ML ORAL.SUSP PO SCH (20:17)
[2024-04-01 06:11] LABS: Basophils # (Auto) 0.01 K/mcL (0.00-0.30); Basophils % (Auto) 0.1 % (0.0-2.0); Eosinophils # (Auto) 0.08 K/mcL (0.00-0.70); Eosinophils % (Auto) 1.1 % (0.0-7.0); Hematocrit 39.5 % (40.1-51.0); Hemoglobin 13.7 g/dL (13.7-17.5); Lymphocytes # (Auto) 0.89 K/mcL (1.50-4.80); Lymphocytes % (Auto) 12.6 % (15.5-49.0); Mean Cell Volume 92.1 fL (80.0-100.0); Mean Corpuscular HGB Conc 34.7 g/dL (31.0-36.0); Mean Platelet Volume 10.3 fL (8.8-12.5); Monocytes # (Auto) 0.59 K/mcL (0.10-0.90); Monocytes % (Auto) 8.4 % (1.0-12.0); Neutrophils % (Auto) 77.2 % (38.0-78.0); Platelet Count 198 K/mcL (140-440); RBC 4.29 M/mcL (4.63-6.08); Red Cell Distribution Width 13.7 % (11.5-14.5)
[2024-04-01 06:28] LABS: ALT/SGPT 119 U/L (<40); AST/SGOT 61 U/L (<40); Albumin 2.8 gm/dL (3.2-5.2); Albumin/Globulin Ratio 1.4 (1.0-2.3); Alkaline Phosphatase 143 U/L (39-117); Bilirubin,Direct 0.6 mg/dL (<0.3); Blood Urea Nitrogen 8 mg/dL (8-23); Carbon Dioxide 26 mmol/L (22-30); Chloride 98 mmol/L (96-108); Glomerular Filtration Rate 110; Glucose 117 mg/dL (70-105); Lactate Dehydrogenase 122 U/L (135-225); Phosphorous 2.8 mg/dL (2.5-4.5); Potassium 3.5 mmol/L (3.3-5.1); Sodium 134 mmol/L (133-145); Triglycerides 96 mg/dL (<150); Uric Acid 2.6 mg/dL (2.5-8.0)
[2024-04-01] MEDS: diphenhydrAMINE 50 MG/ML VIAL IV SCH (20:07)
[2024-04-02 06:02] LABS: Basophils # (Auto) 0.03 K/mcL (0.00-0.30); Basophils % (Auto) 0.5 % (0.0-2.0); Eosinophils # (Auto) 0.14 K/mcL (0.00-0.70); Eosinophils % (Auto) 2.4 % (0.0-7.0); Hematocrit 38.3 % (40.1-51.0); Lymphocytes % (Auto) 17.5 % (15.5-49.0); Mean Cell Volume 93.2 fL (80.0-100.0); Mean Corpuscular HGB Conc 33.9 g/dL (31.0-36.0); Mean Platelet Volume 9.8 fL (8.8-12.5); Monocytes # (Auto) 0.48 K/mcL (0.10-0.90); Monocytes % (Auto) 8.4 % (1.0-12.0); Neutrophils % (Auto) 70.7 % (38.0-78.0); Platelet Count 207 K/mcL (140-440); RBC 4.11 M/mcL (4.63-6.08); Red Cell Distribution Width 13.8 % (11.5-14.5); WBC 5.7 K/mcL (4.5-11.0)
[2024-04-02 06:18] LABS: ALT/SGPT 87 U/L (<40); AST/SGOT 51 U/L (<40); Albumin 2.7 gm/dL (3.2-5.2); Albumin/Globulin Ratio 1.1 (1.0-2.3); Alkaline Phosphatase 126 U/L (39-117); Bilirubin,Direct 0.4 mg/dL (<0.3); Bilirubin,Total 0.8 mg/dL (0.1-1.0); Blood Urea Nitrogen 9 mg/dL (8-23); Calcium 8.1 mg/dL (8.6-10.4); Carbon Dioxide 28 mmol/L (22-30); Chloride 100 mmol/L (96-108); Globulin 2.4 gm/dL (2.2-3.7); Glomerular Filtration Rate 100; Glucose 109 mg/dL (70-105); Lactate Dehydrogenase 123 U/L (135-225); Phosphorous 2.2 mg/dL (2.5-4.5); Potassium 3.1 mmol/L (3.3-5.1); Sodium 135 mmol/L (133-145); Triglycerides 101 mg/dL (<150); Uric Acid 2.4 mg/dL (2.5-8.0)
[2024-04-02] MEDS: POTASSIUM PHOSPHATE 40 MEQ in DEXTROSE 5% IN WATER 500 ML IV ONE (20:07)
[2024-04-02] MEDS: POTASSIUM PHOSPHATE 40 MEQ in DEXTROSE 5% IN WATER 500 ML IV SCH (20:19)
[2024-04-02] MEDS: POTASSIUM PHOSPHATE 66 MEQ/15 ML VIAL IV ONE (20:20)
[2024-04-03] MEDS: SUCRALFATE 1 GM/10 ML ORAL.SUSP PO SCH (00:39)
[2024-04-03] MEDS: POTASSIUM PHOSPHATE 66 MEQ/15 ML VIAL IV ONE (00:40)
== END 2024-04-03 10:30 | DRG 416 ==
LOC: MEDSUR → PREINTOOBSV 13:50
PROVIDERS: ADMIT Family Medicine Adult Medicine; ATTEND Family Medicine Adult Medicine

== ENCOUNTER 2024-04-15 12:25 | Inpatient (IN) ==
[2024-04-15] MEDS ORDERED: IOPAMIDOL 100 ML BOTTLE IV ONE (12:26)
[2024-04-15] MEDS: 0.9 % SODIUM CHLORIDE 1,000 ML IV ONE ×2 (12:52→13:25)
[2024-04-15] MEDS: ONDANSETRON 4 MG/2 ML VIAL IV ONE (12:57)
[2024-04-15 13:32] LABS: Basophils # (Auto) 0.01 K/mcL (0.00-0.30); Basophils % (Auto) 0.1 % (0.0-2.0); Eosinophils # (Auto) 0.02 K/mcL (0.00-0.70); Eosinophils % (Auto) 0.2 % (0.0-7.0); Hematocrit 48.7 % (40.1-51.0); Hemoglobin 15.7 g/dL (13.7-17.5); Lymphocytes # (Auto) 0.69 K/mcL (1.50-4.80); Lymphocytes % (Auto) 6.8 % (15.5-49.0); Mean Cell Volume 98.4 fL (80.0-100.0); Mean Corpuscular HGB Conc 32.2 g/dL (31.0-36.0); Mean Platelet Volume 9.5 fL (8.8-12.5); Monocytes # (Auto) 0.61 K/mcL (0.10-0.90); Monocytes % (Auto) 6.1 % (1.0-12.0); Neutrophils % (Auto) 85.7 % (38.0-78.0); Platelet Count 341 K/mcL (140-440); RBC 4.95 M/mcL (4.63-6.08); Red Cell Distribution Width 14.7 % (11.5-14.5); WBC 10.1 K/mcL (4.5-11.0)
[2024-04-15 13:49] LABS: ALT/SGPT 27 U/L (<40); AST/SGOT 38 U/L (<40); Albumin 3.2 gm/dL (3.2-5.2); Albumin/Globulin Ratio 0.9 (1.0-2.3); Alkaline Phosphatase 103 U/L (39-117); Bilirubin,Total 1.2 mg/dL (0.1-1.0); Blood Urea Nitrogen 26 mg/dL (8-23); Calcium 8.8 mg/dL (8.6-10.4); Carbon Dioxide 20 mmol/L (22-30); Chloride 105 mmol/L (96-108); Globulin 3.5 gm/dL (2.2-3.7); Glomerular Filtration Rate 87; Glucose 128 mg/dL (70-105); Potassium 4.6 mmol/L (3.3-5.1); Sodium 142 mmol/L (133-145)
[2024-04-15] MEDS ORDERED: ONDANSETRON 4 MG/2 ML VIAL IV PRN (14:09)
[2024-04-15] MEDS: 0.9 % SODIUM CHLORIDE 1,000 ML IV SCH ×2 (16:06→16:37)
[2024-04-15] MEDS: PANTOPRAZOLE 40 MG VIAL IV SCH (17:17)
[2024-04-15 18:30] LABS: Appearance,Urine Cloudy (Clear); Bacteria,Urine Mod /hpf (0); Bilirubin,Urine Small mg/dL (Negative); Color,Urine Yellow; Glucose,Urine (UA) Negative (Negative); Ketones,Urine 40 mg/dL (Negative); Leukocyte Esterase,Urine Small /uL (Negative); Nitrate,Urine Negative (Negative); Protein,Urine >=300 mg/dL (Negative); Uric Acid Crystals,Urine Many /hpf; Urine Blood Large ery/mcL (Negative); Urine Hyaline Cast 3 /lph (0-2); Urine RBC 5 /hpf (0-3); Urine Squamous Epithelial Cell 2 /hpf (0-4); Urine WBC 60 /hpf (0-4)
[2024-04-15] MEDS: ONDANSETRON 4 MG/2 ML VIAL IV PRN (19:05)
[2024-04-15] MEDS: 0.9 % SODIUM CHLORIDE 10 ML SYRINGE IV SCH (20:03)
[2024-04-15] MEDS: POLYETHYLENE GLYCOL 3350 17 GM PACKET PO SCH (20:03)
[2024-04-15] MEDS: DOCUSATE SODIUM 100 MG CAPSULE PO SCH (20:03)
[2024-04-15] MEDS: SENNOSIDES 1 TABLET PO SCH (20:03)
[2024-04-15] MEDS ORDERED: DOCUSATE SODIUM 100 MG CAPSULE PO SCH (21:00)
[2024-04-15] MEDS ORDERED: 0.9 % SODIUM CHLORIDE 10 ML SYRINGE IV SCH (22:00)
[2024-04-16 05:55] LABS: Basophils # (Auto) 0.01 K/mcL (0.00-0.30); Basophils % (Auto) 0.1 % (0.0-2.0); Eosinophils # (Auto) 0.06 K/mcL (0.00-0.70); Eosinophils % (Auto) 0.8 % (0.0-7.0); Hematocrit 42.6 % (40.1-51.0); Hemoglobin 13.4 g/dL (13.7-17.5); Lymphocytes # (Auto) 0.89 K/mcL (1.50-4.80); Lymphocytes % (Auto) 11.6 % (15.5-49.0); Mean Cell Volume 100.5 fL (80.0-100.0); Mean Corpuscular HGB Conc 31.5 g/dL (31.0-36.0); Mean Platelet Volume 9.6 fL (8.8-12.5); Monocytes # (Auto) 0.52 K/mcL (0.10-0.90); Monocytes % (Auto) 6.8 % (1.0-12.0); Neutrophils % (Auto) 80.3 % (38.0-78.0); Platelet Count 287 K/mcL (140-440); RBC 4.24 M/mcL (4.63-6.08); Red Cell Distribution Width 14.9 % (11.5-14.5); WBC 7.7 K/mcL (4.5-11.0)
[2024-04-16 06:18] LABS: ALT/SGPT 24 U/L (<40); AST/SGOT 27 U/L (<40); Albumin 2.9 gm/dL (3.2-5.2); Albumin/Globulin Ratio 1.1 (1.0-2.3); Alkaline Phosphatase 93 U/L (39-117); Bilirubin,Direct 0.4 mg/dL (<0.3); Bilirubin,Total 0.8 mg/dL (0.1-1.0); Blood Urea Nitrogen 21 mg/dL (8-23); Calcium 8.1 mg/dL (8.6-10.4); Carbon Dioxide 24 mmol/L (22-30); Chloride 111 mmol/L (96-108); Globulin 2.7 gm/dL (2.2-3.7); Glomerular Filtration Rate 93; Glucose 96 mg/dL (70-105); Lactate Dehydrogenase 145 U/L (135-225); Phosphorous 2.8 mg/dL (2.5-4.5); Potassium 3.7 mmol/L (3.3-5.1); Sodium 147 mmol/L (133-145); Triglycerides 81 mg/dL (<150); Uric Acid 6.3 mg/dL (2.5-8.0)
[2024-04-16] MEDS: MELATONIN 3 MG TABLET PO PRN (20:02)
[2024-04-17 06:03] LABS: Basophils # (Auto) 0.01 K/mcL (0.00-0.30); Basophils % (Auto) 0.1 % (0.0-2.0); Eosinophils # (Auto) 0.07 K/mcL (0.00-0.70); Eosinophils % (Auto) 0.9 % (0.0-7.0); Hematocrit 39.2 % (40.1-51.0); Hemoglobin 12.4 g/dL (13.7-17.5); Lymphocytes % (Auto) 10.7 % (15.5-49.0); Mean Cell Volume 100.5 fL (80.0-100.0); Mean Corpuscular HGB Conc 31.6 g/dL (31.0-36.0); Mean Platelet Volume 9.5 fL (8.8-12.5); Monocytes # (Auto) 0.43 K/mcL (0.10-0.90); Monocytes % (Auto) 5.7 % (1.0-12.0); Neutrophils % (Auto) 82.1 % (38.0-78.0); Platelet Count 259 K/mcL (140-440); Red Cell Distribution Width 14.9 % (11.5-14.5); WBC 7.5 K/mcL (4.5-11.0)
[2024-04-17 06:14] LABS: Erythrocyte Sedimentation Rate 7 mm/hr (0-20)
[2024-04-17 06:28] LABS: Amylase 41 U/L (28-100); Thyroid Stimulating Hormone 0.42 uIU/mL (0.27-5.01)
[2024-04-17 08:02] LABS: ALT/SGPT 22 U/L (<40); AST/SGOT 27 U/L (<40); Albumin 2.6 gm/dL (3.2-5.2); Alkaline Phosphatase 78 U/L (39-117); Bilirubin,Direct 0.4 mg/dL (<0.3); Bilirubin,Total 0.8 mg/dL (0.1-1.0); Blood Urea Nitrogen 13 mg/dL (8-23); Calcium 7.7 mg/dL (8.6-10.4); Carbon Dioxide 22 mmol/L (22-30); Chloride 112 mmol/L (96-108); Globulin 2.5 gm/dL (2.2-3.7); Glomerular Filtration Rate 100; Glucose 91 mg/dL (70-105); Lactate Dehydrogenase 122 U/L (135-225); Phosphorous 2.3 mg/dL (2.5-4.5); Potassium 3.2 mmol/L (3.3-5.1); Sodium 147 mmol/L (133-145); Triglycerides 76 mg/dL (<150); Uric Acid 4.6 mg/dL (2.5-8.0)
[2024-04-17] MEDS: POTASSIUM CHLORIDE 40 MEQ in DEXTROSE 5% IN WATER 500 ML IV ONE (12:09)
[2024-04-17 14:17] LABS: Appearance,Urine Slightly Cloudy (Clear); Bilirubin,Urine Small mg/dL (Negative); Color,Urine Amber; Glucose,Urine (UA) Negative (Negative); Ketones,Urine >=160 mg/dL (Negative); Leukocyte Esterase,Urine Small /uL (Negative); Mucus,Urine Few /hpf; Nitrate,Urine Negative (Negative); Protein,Urine 100 mg/dL (Negative); Specific Gravity,Urine 1.025 (1.000-1.035); Urine Blood Large ery/mcL (Negative); Urine RBC > 182 /hpf (0-1); Urine Squamous Epithelial Cell 0 /hpf (0-4); Urine WBC 1 /hpf (0-4)
[2024-04-17] MEDS ORDERED: TPN PER PHARMACY IV SCH (15:30)
[2024-04-17] MEDS ORDERED: LIDOCAINE 1% 10 ML VIAL SQ ONE (16:30)
[2024-04-17] MEDS: 0.9 % SODIUM CHLORIDE 10 ML SYRINGE IV SCH (20:20)
[2024-04-17] MEDS: 0.9 % SODIUM CHLORIDE 10 ML SYRINGE IV PRN (20:21)
[2024-04-18] MEDS ORDERED: KETAMINE 50 MG/ML Syringe IV ONE (06:48)
[2024-04-18] MEDS ORDERED: LIDOCAINE 2% PF 5 ML VIAL ONE (06:48)
[2024-04-18] MEDS ORDERED: GLYCOPYRROLATE 0.2 MG/ML VIAL IV ONE (06:48)
[2024-04-18] MEDS ORDERED: SUCCINYLCHOLINE 200 MG/10 ML VIAL IV ONE (06:48)
[2024-04-18] MEDS ORDERED: ONDANSETRON 4 MG/2 ML VIAL ONE (06:48)
[2024-04-18] MEDS ORDERED: DEXAMETHASONE 10 MG/ML VIAL ONE (06:48)
[2024-04-18] MEDS ORDERED: ROCURONIUM 10 MG/ML ML IV ONE (06:48)
[2024-04-18] MEDS ORDERED: PROPOFOL 200 MG/20 ML VIAL IV ONE (06:48)
[2024-04-18 06:49] LABS: Basophils # (Auto) 0.02 K/mcL (0.00-0.30); Basophils % (Auto) 0.2 % (0.0-2.0); Eosinophils # (Auto) 0.05 K/mcL (0.00-0.70); Eosinophils % (Auto) 0.6 % (0.0-7.0); Hematocrit 39.5 % (40.1-51.0); Hemoglobin 13.2 g/dL (13.7-17.5); Lymphocytes # (Auto) 0.83 K/mcL (1.50-4.80); Lymphocytes % (Auto) 10.3 % (15.5-49.0); Mean Cell Volume 94.7 fL (80.0-100.0); Mean Corpuscular HGB Conc 33.4 g/dL (31.0-36.0); Mean Platelet Volume 9.8 fL (8.8-12.5); Monocytes # (Auto) 0.45 K/mcL (0.10-0.90); Monocytes % (Auto) 5.6 % (1.0-12.0); Neutrophils % (Auto) 82.8 % (38.0-78.0); Platelet Count 270 K/mcL (140-440); RBC 4.17 M/mcL (4.63-6.08); Red Cell Distribution Width 14.4 % (11.5-14.5)
[2024-04-18] MEDS ORDERED: fentaNYL 100 MCG/2 ML VIAL ONE (06:49)
[2024-04-18] MEDS ORDERED: METOCLOPRAMIDE 10 MG/2 ML VIAL ONE (06:53)
[2024-04-18] MEDS ORDERED: DEXTROSE 50% 50 ML SYRINGE IV PRN (06:57)
[2024-04-18] MEDS ORDERED: cefTRIAXone 1 GM VIAL ONE (07:17)
[2024-04-18] MEDS ORDERED: PHENYLephrine 1 MG/10 ML SYRINGE (ANEST) ONE ×2 (07:17→08:16)
[2024-04-18 07:19] LABS: ALT/SGPT 24 U/L (<40); AST/SGOT 32 U/L (<40); Albumin 2.8 gm/dL (3.2-5.2); Alkaline Phosphatase 103 U/L (39-117); Bilirubin,Direct 0.5 mg/dL (<0.3); Bilirubin,Total 1.1 mg/dL (0.1-1.0); Blood Urea Nitrogen 7 mg/dL (8-23); Calcium 7.4 mg/dL (8.6-10.4); Carbon Dioxide 24 mmol/L (22-30); Chloride 104 mmol/L (96-108); Globulin 2.7 gm/dL (2.2-3.7); Glomerular Filtration Rate 110; Glucose 95 mg/dL (70-105); Lactate Dehydrogenase 177 U/L (135-225); Phosphorous 1.9 mg/dL (2.5-4.5); Potassium 2.8 mmol/L (3.3-5.1); Sodium 141 mmol/L (133-145); Triglycerides 78 mg/dL (<150); Uric Acid 3.4 mg/dL (2.5-8.0)
[2024-04-18] MEDS ORDERED: ePHEDrine 50 MG/5 ML SYRINGE (ANEST) IV ONE (08:19)
[2024-04-18] MEDS ORDERED: ESMOLOL 100 MG/10 ML VIAL IV ONE (08:23)
[2024-04-18] MEDS ORDERED: VASOPRESSIN 20 UNIT/ML VIAL ONE (08:33)
[2024-04-18] MEDS ORDERED: 0.9 % SODIUM CHLORIDE 100 ML IV ONE (08:34)
[2024-04-18] MEDS ORDERED: SUGAMMADEX SODIUM 200 MG/2 ML VIAL IV ONE (08:41)
[2024-04-18] MEDS ORDERED: LACTATED RINGERS 250 ML IV PRN (09:02)
[2024-04-18] MEDS ORDERED: METOPROLOL TARTRATE 5 MG/5 ML VIAL IV PRN (09:02)
[2024-04-18] MEDS ORDERED: NALOXONE HCL 0.4 MG/ML VIAL IV PRN (09:02)
[2024-04-18] MEDS ORDERED: fentaNYL 100 MCG/2 ML VIAL IV PRN (09:02)
[2024-04-18] MEDS ORDERED: HYDROmorphone 0.5 MG/0.5 ML SYRINGE IV PRN (09:02)
[2024-04-18] MEDS ORDERED: METHOCARBAMOL 1,000 MG/10 ML VIAL IV PRN (09:02)
[2024-04-18] MEDS ORDERED: ONDANSETRON 4 MG/2 ML VIAL IV PRN (09:02)
[2024-04-18] MEDS ORDERED: IPRATROPIUM/ALBUTEROL 3 ML AMPUL.NEB NEB PRN (09:02)
[2024-04-18] MEDS ORDERED: HYDROmorphone 0.5 MG/0.5 ML SYRINGE ONE (09:09)
[2024-04-18] MEDS: ACETAMINOPHEN 1,000 MG/100 ML BAG IV ONE (10:09)
[2024-04-18] MEDS ORDERED: TPN PER PHARMACY IV SCH (10:30)
[2024-04-18] MEDS: fentaNYL 100 MCG/2 ML VIAL IV PRN (10:55)
[2024-04-18] MEDS: POTASSIUM CHLORIDE 40 MEQ in DEXTROSE 5% IN WATER 500 ML IV ONE (10:56)
[2024-04-18] MEDS: INSULIN LISPRO 1 UNIT/0.01 ML UNIT SQ SCH (12:18)
[2024-04-18] MEDS: LACTATED RINGERS 1,000 ML IV SCH (12:21)
[2024-04-18] MEDS: POTASSIUM CHLORIDE 40 MEQ in DEXTROSE 5% IN WATER 250 ML IV ONE (12:23)
[2024-04-18] MEDS: CALCIUM GLUCONATE 5 MEQ, MAGNESIUM SULFATE 8.12 MEQ, SODIUM CHLORIDE 20 MEQ, POTASSIUM ... IV SCH (13:19)
[2024-04-18] MEDS: POTASSIUM PHOSPHATE 20 MEQ in DEXTROSE 5% IN WATER 250 ML IV ONE (13:21)
[2024-04-18 16:10] LABS: Prealbumin 12.1 mg/dL (20.0-40.0)
[2024-04-18] MEDS: cefTRIAXone 1 GM VIAL IV SCH (16:51)
[2024-04-18] MEDS: FAT EMULSION 20% 250 ML in PREMIX 1 BAG IV SCH (16:53)
[2024-04-18] MEDS: DOXAZOSIN 1 MG TABLET PT ONE (16:53)
[2024-04-18] MEDS: ACETAMINOPHEN 1,000 MG/100 ML BAG IV PRN (18:24)
[2024-04-19 06:38] LABS: Basophils # (Auto) 0 K/mcL (0.00-0.30); Basophils % (Auto) 0 % (0.0-2.0); Eosinophils # (Auto) 0.03 K/mcL (0.00-0.70); Eosinophils % (Auto) 0.3 % (0.0-7.0); Hematocrit 38.5 % (40.1-51.0); Hemoglobin 13.1 g/dL (13.7-17.5); Lymphocytes # (Auto) 1.09 K/mcL (1.50-4.80); Lymphocytes % (Auto) 10.5 % (15.5-49.0); Mean Cell Volume 94.4 fL (80.0-100.0); Mean Platelet Volume 9.9 fL (8.8-12.5); Monocytes # (Auto) 0.41 K/mcL (0.10-0.90); Monocytes % (Auto) 3.9 % (1.0-12.0); Neutrophils % (Auto) 84.7 % (38.0-78.0); Platelet Count 221 K/mcL (140-440); RBC 4.08 M/mcL (4.63-6.08); Red Cell Distribution Width 14.4 % (11.5-14.5); WBC 10.4 K/mcL (4.5-11.0)
[2024-04-19 07:02] LABS: ALT/SGPT 27 U/L (<40); AST/SGOT 32 U/L (<40); Albumin 2.5 gm/dL (3.2-5.2); Albumin/Globulin Ratio 1.1 (1.0-2.3); Alkaline Phosphatase 79 U/L (39-117); Bilirubin,Direct 0.5 mg/dL (<0.3); Bilirubin,Total 0.9 mg/dL (0.1-1.0); Blood Urea Nitrogen 7 mg/dL (8-23); Calcium 7.4 mg/dL (8.6-10.4); Carbon Dioxide 26 mmol/L (22-30); Chloride 100 mmol/L (96-108); Globulin 2.3 gm/dL (2.2-3.7); Glomerular Filtration Rate 110; Glucose 140 mg/dL (70-105); Lactate Dehydrogenase 153 U/L (135-225); Phosphorous 1.8 mg/dL (2.5-4.5); Potassium 2.8 mmol/L (3.3-5.1); Sodium 134 mmol/L (133-145); Triglycerides 63 mg/dL (<150); Uric Acid 2.2 mg/dL (2.5-8.0)
[2024-04-19] MEDS: MAGNESIUM SULFATE 2 GM/50 ML BAG IV ONE (09:52)
[2024-04-19] MEDS: POTASSIUM CHLORIDE 40 MEQ in DEXTROSE 5% IN WATER 500 ML IV ONE (09:52)
[2024-04-19] MEDS: DOXAZOSIN 1 MG TABLET PT SCH (09:53)
[2024-04-19] MEDS ORDERED: METOPROLOL TARTRATE 5 MG/5 ML VIAL IV PRN (10:51)
[2024-04-19] MEDS: morphine 4 MG/ML VIAL IV PRN (11:07)
[2024-04-19] MEDS: CALCIUM GLUCONATE IV SCH (14:11)
[2024-04-19] MEDS: [UNRECOGNIZED DRUG - OTHER] IV SCH (14:11)
[2024-04-19] MEDS: SODIUM CHLORIDE IV SCH (14:11)
[2024-04-19] MEDS: MAGNESIUM SULFATE IV SCH (14:11)
[2024-04-19] MEDS: METOPROLOL TARTRATE 25 MG TABLET PO SCH (20:49)
[2024-04-19] MEDS: APIXABAN 5 MG TABLET PO SCH (20:50)
[2024-04-20 07:24] LABS: ALT/SGPT 20 U/L (<40); AST/SGOT 25 U/L (<40); Albumin 2.2 gm/dL (3.2-5.2); Albumin/Globulin Ratio 0.9 (1.0-2.3); Alkaline Phosphatase 71 U/L (39-117); Bilirubin,Direct 0.2 mg/dL (<0.3); Bilirubin,Total 0.5 mg/dL (0.1-1.0); Blood Urea Nitrogen 10 mg/dL (8-23); Calcium 7.3 mg/dL (8.6-10.4); Carbon Dioxide 23 mmol/L (22-30); Chloride 104 mmol/L (96-108); Globulin 2.4 gm/dL (2.2-3.7); Glomerular Filtration Rate 110; Glucose 158 mg/dL (70-105); Lactate Dehydrogenase 174 U/L (135-225); Phosphorous 2.4 mg/dL (2.5-4.5); Sodium 136 mmol/L (133-145); Triglycerides 96 mg/dL (<150); Uric Acid 1.8 mg/dL (2.5-8.0)
[2024-04-20 07:31] LABS: Basophils # (Auto) 0.02 K/mcL (0.00-0.30); Basophils % (Auto) 0.2 % (0.0-2.0); Eosinophils # (Auto) 0.08 K/mcL (0.00-0.70); Eosinophils % (Auto) 0.9 % (0.0-7.0); Hematocrit 36.5 % (40.1-51.0); Hemoglobin 12.1 g/dL (13.7-17.5); Lymphocytes % (Auto) 9.4 % (15.5-49.0); Mean Cell Volume 95.8 fL (80.0-100.0); Mean Corpuscular HGB Conc 33.2 g/dL (31.0-36.0); Mean Platelet Volume 10.3 fL (8.8-12.5); Monocytes # (Auto) 0.48 K/mcL (0.10-0.90); Monocytes % (Auto) 5.7 % (1.0-12.0); Neutrophils % (Auto) 81.9 % (38.0-78.0); Platelet Count 205 K/mcL (140-440); RBC 3.81 M/mcL (4.63-6.08); Red Cell Distribution Width 14.8 % (11.5-14.5); WBC 8.5 K/mcL (4.5-11.0)
[2024-04-20 07:48] LABS: Free T4 (Free Thyroxine) 1.55 ng/dL (0.93-1.70)
[2024-04-20] MEDS ORDERED: BENZOCAINE/MENTHOL 1 LOZENGE PO PRN (10:08)
[2024-04-20] MEDS: DOCUSATE SODIUM 10 MG/ML ML PO SCH (10:32)
[2024-04-20] MEDS: 0.9 % SODIUM CHLORIDE 1,000 ML IV SCH (14:19)
[2024-04-20] MEDS: [UNRECOGNIZED DRUG - OTHER] IV SCH (14:34)
[2024-04-20] MEDS: MAGNESIUM SULFATE IV SCH (14:34)
[2024-04-20] MEDS: SODIUM CHLORIDE IV SCH (14:34)
[2024-04-20] MEDS: CALCIUM GLUCONATE IV SCH (14:34)
[2024-04-20] MEDS: MAGNESIUM CITRATE 300 ML ORAL.SOL PO SCH (14:36)
[2024-04-20] MEDS: POTASSIUM PHOSPHATE 20 MEQ in DEXTROSE 5% IN WATER 250 ML IV ONE (18:37)
[2024-04-20] MEDS: MAGNESIUM CITRATE 300 ML ORAL.SOL PO ONE (19:54)
[2024-04-21 07:00] LABS: Basophils # (Auto) 0.01 K/mcL (0.00-0.30); Basophils % (Auto) 0.1 % (0.0-2.0); Eosinophils # (Auto) 0.17 K/mcL (0.00-0.70); Eosinophils % (Auto) 1.9 % (0.0-7.0); Hematocrit 36.6 % (40.1-51.0); Lymphocytes # (Auto) 0.81 K/mcL (1.50-4.80); Lymphocytes % (Auto) 8.9 % (15.5-49.0); Mean Cell Volume 97.3 fL (80.0-100.0); Mean Corpuscular HGB Conc 32.8 g/dL (31.0-36.0); Mean Platelet Volume 10.1 fL (8.8-12.5); Monocytes # (Auto) 0.88 K/mcL (0.10-0.90); Monocytes % (Auto) 9.7 % (1.0-12.0); Neutrophils % (Auto) 77.2 % (38.0-78.0); Platelet Count 215 K/mcL (140-440); RBC 3.76 M/mcL (4.63-6.08); Red Cell Distribution Width 14.9 % (11.5-14.5); WBC 9.1 K/mcL (4.5-11.0)
[2024-04-21 07:25] LABS: ALT/SGPT 23 U/L (<40); AST/SGOT 26 U/L (<40); Albumin 2.3 gm/dL (3.2-5.2); Albumin/Globulin Ratio 1.2 (1.0-2.3); Alkaline Phosphatase 79 U/L (39-117); Bilirubin,Direct < 0.2 mg/dL (0-0.3); Bilirubin,Total 0.4 mg/dL (0.1-1.0); Blood Urea Nitrogen 12 mg/dL (8-23); Calcium 7.5 mg/dL (8.6-10.4); Carbon Dioxide 22 mmol/L (22-30); Chloride 109 mmol/L (96-108); Glomerular Filtration Rate 110; Glucose 130 mg/dL (70-105); Lactate Dehydrogenase 194 U/L (135-225); Phosphorous 3.3 mg/dL (2.5-4.5); Potassium 3.2 mmol/L (3.3-5.1); Sodium 139 mmol/L (133-145); Triglycerides 130 mg/dL (<150); Uric Acid 1.7 mg/dL (2.5-8.0)
[2024-04-21 12:12] LABS: Prealbumin 8.7 mg/dL (20.0-40.0)
[2024-04-21] MEDS: MAGNESIUM SULFATE IV SCH (14:07)
[2024-04-21] MEDS: SODIUM CHLORIDE IV SCH (14:07)
[2024-04-21] MEDS: CALCIUM GLUCONATE IV SCH (14:07)
[2024-04-21] MEDS: [UNRECOGNIZED DRUG - OTHER] IV SCH (14:07)
[2024-04-22 06:43] LABS: ALT/SGPT 19 U/L (<40); AST/SGOT 24 U/L (<40); Albumin 2.1 gm/dL (3.2-5.2); Albumin/Globulin Ratio 0.8 (1.0-2.3); Alkaline Phosphatase 84 U/L (39-117); Bilirubin,Direct < 0.2 mg/dL (0-0.3); Bilirubin,Total 0.4 mg/dL (0.1-1.0); Blood Urea Nitrogen 19 mg/dL (8-23); Calcium 7.8 mg/dL (8.6-10.4); Carbon Dioxide 23 mmol/L (22-30); Chloride 114 mmol/L (96-108); Globulin 2.7 gm/dL (2.2-3.7); Glomerular Filtration Rate 83; Glucose 132 mg/dL (70-105); Lactate Dehydrogenase 198 U/L (135-225); Phosphorous 4.5 mg/dL (2.5-4.5); Potassium 3.8 mmol/L (3.3-5.1); Sodium 144 mmol/L (133-145); Triglycerides 107 mg/dL (<150)
[2024-04-22 06:46] LABS: Basophils # (Auto) 0.02 K/mcL (0.00-0.30); Basophils % (Auto) 0.2 % (0.0-2.0); Eosinophils # (Auto) 0.26 K/mcL (0.00-0.70); Eosinophils % (Auto) 3.2 % (0.0-7.0); Hemoglobin 11.7 g/dL (13.7-17.5); Lymphocytes # (Auto) 0.81 K/mcL (1.50-4.80); Mean Cell Volume 99.2 fL (80.0-100.0); Mean Corpuscular HGB Conc 32.5 g/dL (31.0-36.0); Mean Platelet Volume 10.1 fL (8.8-12.5); Monocytes # (Auto) 0.92 K/mcL (0.10-0.90); Monocytes % (Auto) 11.4 % (1.0-12.0); Platelet Count 215 K/mcL (140-440); RBC 3.63 M/mcL (4.63-6.08); Red Cell Distribution Width 15.3 % (11.5-14.5); WBC 8.1 K/mcL (4.5-11.0)
[2024-04-22 08:01] LABS: Prealbumin 9.2 mg/dL (20.0-40.0)
[2024-04-22] MEDS: CHLORHEXIDINE GLUCONATE 15 ML UDC SWABMOUTH SCH (20:25)
[2024-04-22 21:24] LABS: ALT/SGPT 19 U/L (<40); AST/SGOT 27 U/L (<40); Albumin 2.3 gm/dL (3.2-5.2); Albumin/Globulin Ratio 0.8 (1.0-2.3); Alkaline Phosphatase 93 U/L (39-117); Bilirubin,Direct < 0.2 mg/dL (0-0.3); Bilirubin,Total 0.4 mg/dL (0.1-1.0); Blood Urea Nitrogen 24 mg/dL (8-23); Calcium 7.9 mg/dL (8.6-10.4); Carbon Dioxide 21 mmol/L (22-30); Chloride 115 mmol/L (96-108); Globulin 2.8 gm/dL (2.2-3.7); Glomerular Filtration Rate 69; Glucose 153 mg/dL (70-105); Lactate Dehydrogenase 173 U/L (135-225); Phosphorous 4.4 mg/dL (2.5-4.5); Potassium 4.1 mmol/L (3.3-5.1); Sodium 145 mmol/L (133-145); Triglycerides 106 mg/dL (<150); Uric Acid 2.2 mg/dL (2.5-8.0)
[2024-04-22 22:22] LABS: Prealbumin 8.9 mg/dL (20.0-40.0)
[2024-04-23 06:30] LABS: Prealbumin 8.2 mg/dL (20.0-40.0)
[2024-04-23 06:40] LABS: Basophils # (Auto) 0.04 K/mcL (0.00-0.30); Basophils % (Auto) 0.4 % (0.0-2.0); Eosinophils # (Auto) 0.26 K/mcL (0.00-0.70); Eosinophils % (Auto) 2.6 % (0.0-7.0); Hematocrit 35.5 % (40.1-51.0); Hemoglobin 11.3 g/dL (13.7-17.5); Lymphocytes # (Auto) 0.82 K/mcL (1.50-4.80); Lymphocytes % (Auto) 8.2 % (15.5-49.0); Mean Corpuscular HGB Conc 31.8 g/dL (31.0-36.0); Mean Platelet Volume 10.4 fL (8.8-12.5); Monocytes # (Auto) 0.93 K/mcL (0.10-0.90); Monocytes % (Auto) 9.3 % (1.0-12.0); Neutrophils % (Auto) 76.8 % (38.0-78.0); Platelet Count 232 K/mcL (140-440); RBC 3.55 M/mcL (4.63-6.08); Red Cell Distribution Width 15.7 % (11.5-14.5)
[2024-04-23 06:48] LABS: ALT/SGPT 18 U/L (<40); AST/SGOT 23 U/L (<40); Albumin 2.2 gm/dL (3.2-5.2); Albumin/Globulin Ratio 0.8 (1.0-2.3); Alkaline Phosphatase 92 U/L (39-117); Bilirubin,Direct < 0.2 mg/dL (0-0.3); Bilirubin,Total 0.3 mg/dL (0.1-1.0); Blood Urea Nitrogen 26 mg/dL (8-23); Calcium 8.4 mg/dL (8.6-10.4); Carbon Dioxide 20 mmol/L (22-30); Chloride 118 mmol/L (96-108); Globulin 2.7 gm/dL (2.2-3.7); Glomerular Filtration Rate 69; Glucose 131 mg/dL (70-105); Lactate Dehydrogenase 171 U/L (135-225); Potassium 4.2 mmol/L (3.3-5.1); Sodium 147 mmol/L (133-145); Triglycerides 103 mg/dL (<150); Uric Acid 2.3 mg/dL (2.5-8.0)
[2024-04-23] MEDS: [UNRECOGNIZED DRUG - REMARK] IV SCH (13:15)
[2024-04-24 06:01] LABS: Basophils # (Auto) 0.03 K/mcL (0.00-0.30); Basophils % (Auto) 0.3 % (0.0-2.0); Eosinophils % (Auto) 2.7 % (0.0-7.0); Hemoglobin 10.9 g/dL (13.7-17.5); Lymphocytes # (Auto) 0.76 K/mcL (1.50-4.80); Lymphocytes % (Auto) 6.7 % (15.5-49.0); Mean Cell Volume 99.1 fL (80.0-100.0); Mean Corpuscular HGB Conc 32.1 g/dL (31.0-36.0); Mean Platelet Volume 10.3 fL (8.8-12.5); Platelet Count 239 K/mcL (140-440); RBC 3.43 M/mcL (4.63-6.08); Red Cell Distribution Width 15.9 % (11.5-14.5); WBC 11.3 K/mcL (4.5-11.0)
[2024-04-24 06:24] LABS: ALT/SGPT 18 U/L (<40); AST/SGOT 24 U/L (<40); Albumin 2.3 gm/dL (3.2-5.2); Albumin/Globulin Ratio 0.8 (1.0-2.3); Alkaline Phosphatase 110 U/L (39-117); Bilirubin,Direct < 0.2 mg/dL (0-0.3); Bilirubin,Total 0.3 mg/dL (0.1-1.0); Blood Urea Nitrogen 27 mg/dL (8-23); Carbon Dioxide 22 mmol/L (22-30); Chloride 115 mmol/L (96-108); Globulin 2.8 gm/dL (2.2-3.7); Glomerular Filtration Rate 83; Glucose 127 mg/dL (70-105); Lactate Dehydrogenase 209 U/L (135-225); Phosphorous 3.4 mg/dL (2.5-4.5); Potassium 4.2 mmol/L (3.3-5.1); Sodium 145 mmol/L (133-145); Triglycerides 163 mg/dL (<150); Uric Acid 2.5 mg/dL (2.5-8.0)
[2024-04-24] MEDS: METOCLOPRAMIDE ORAL SOL 1 MG/ML ML PO SCH (16:27)
[2024-04-25 06:54] LABS: Basophils # (Auto) 0.04 K/mcL (0.00-0.30); Basophils % (Auto) 0.5 % (0.0-2.0); Eosinophils # (Auto) 0.25 K/mcL (0.00-0.70); Eosinophils % (Auto) 2.9 % (0.0-7.0); Hematocrit 32.6 % (40.1-51.0); Hemoglobin 10.5 g/dL (13.7-17.5); Lymphocytes # (Auto) 1.03 K/mcL (1.50-4.80); Lymphocytes % (Auto) 12.1 % (15.5-49.0); Mean Cell Volume 98.8 fL (80.0-100.0); Mean Corpuscular HGB Conc 32.2 g/dL (31.0-36.0); Mean Platelet Volume 10.4 fL (8.8-12.5); Monocytes # (Auto) 0.55 K/mcL (0.10-0.90); Monocytes % (Auto) 6.4 % (1.0-12.0); Platelet Count 259 K/mcL (140-440); Red Cell Distribution Width 16.2 % (11.5-14.5); WBC 8.5 K/mcL (4.5-11.0)
[2024-04-25 07:00] LABS: ALT/SGPT 19 U/L (<40); AST/SGOT 27 U/L (<40); Albumin 2.3 gm/dL (3.2-5.2); Albumin/Globulin Ratio 0.8 (1.0-2.3); Alkaline Phosphatase 110 U/L (39-117); Bilirubin,Direct < 0.2 mg/dL (0-0.3); Bilirubin,Total 0.3 mg/dL (0.1-1.0); Blood Urea Nitrogen 20 mg/dL (8-23); Calcium 8.8 mg/dL (8.6-10.4); Carbon Dioxide 28 mmol/L (22-30); Chloride 112 mmol/L (96-108); Globulin 2.8 gm/dL (2.2-3.7); Glomerular Filtration Rate 93; Glucose 112 mg/dL (70-105); Lactate Dehydrogenase 390 U/L (135-225); Potassium 4.5 mmol/L (3.3-5.1); Sodium 146 mmol/L (133-145); Triglycerides 133 mg/dL (<150); Uric Acid 3.1 mg/dL (2.5-8.0)
[2024-04-25] MEDS ORDERED: DIATRIZOATE MEGLU/DIATRIZO SOD 120ML BOTTLE PO ONE (11:22)
[2024-04-26 06:54] LABS: Basophils # (Auto) 0.03 K/mcL (0.00-0.30); Basophils % (Auto) 0.4 % (0.0-2.0); Eosinophils # (Auto) 0.25 K/mcL (0.00-0.70); Eosinophils % (Auto) 3.4 % (0.0-7.0); Hematocrit 33.3 % (40.1-51.0); Hemoglobin 10.6 g/dL (13.7-17.5); Lymphocytes # (Auto) 1.33 K/mcL (1.50-4.80); Lymphocytes % (Auto) 18.3 % (15.5-49.0); Mean Corpuscular HGB Conc 31.8 g/dL (31.0-36.0); Mean Platelet Volume 10.3 fL (8.8-12.5); Monocytes % (Auto) 6.9 % (1.0-12.0); Neutrophils % (Auto) 69.1 % (38.0-78.0); Platelet Count 254 K/mcL (140-440); RBC 3.33 M/mcL (4.63-6.08); Red Cell Distribution Width 16.1 % (11.5-14.5); WBC 7.3 K/mcL (4.5-11.0)
== END 2024-04-26 12:45 | DRG 374 ==
LOC: ED 12:25 → ICU 15:30 → MEDSUR 04-25 23:52
PROVIDERS: ADMIT Family Medicine Adult Medicine; ATTEND Family Medicine Adult Medicine

== ENCOUNTER 2024-05-12 11:46 | Inpatient (IN) ==
[2024-05-12] MEDS ORDERED: IOPAMIDOL 100 ML BOTTLE IV ONE (11:47)
[2024-05-12 12:47] LABS: Basophils # (Auto) 0.01 K/mcL (0.00-0.30); Basophils % (Auto) 0.1 % (0.0-2.0); Eosinophils # (Auto) 0 K/mcL (0.00-0.70); Eosinophils % (Auto) 0 % (0.0-7.0); Hematocrit 33.3 % (40.1-51.0); Hemoglobin 11.3 g/dL (13.7-17.5); Lymphocytes # (Auto) 0.49 K/mcL (1.50-4.80); Mean Cell Volume 93.8 fL (80.0-100.0); Mean Corpuscular HGB Conc 33.9 g/dL (31.0-36.0); Monocytes # (Auto) 0.59 K/mcL (0.10-0.90); Monocytes % (Auto) 3.7 % (1.0-12.0); Neutrophils % (Auto) 92.7 % (38.0-78.0); Platelet Count 407 K/mcL (140-440); RBC 3.55 M/mcL (4.63-6.08); Red Cell Distribution Width 15.2 % (11.5-14.5); WBC 16.1 K/mcL (4.5-11.0)
[2024-05-12 12:58] LABS: INR 1.2 (0.9-1.1); Prothrombin Time 15.2 sec (11.9-14.5)
[2024-05-12 13:05] LABS: ALT/SGPT 26 U/L (<40); AST/SGOT 40 U/L (<40); Albumin 2.8 gm/dL (3.2-5.2); Albumin/Globulin Ratio 0.8 (1.0-2.3); Alkaline Phosphatase 134 U/L (39-117); Bilirubin,Total 0.3 mg/dL (0.1-1.0); Blood Urea Nitrogen 15 mg/dL (8-23); Carbon Dioxide 22 mmol/L (22-30); Chloride 100 mmol/L (96-108); Globulin 3.3 gm/dL (2.2-3.7); Glomerular Filtration Rate 100; Glucose 170 mg/dL (70-105); Potassium 4.3 mmol/L (3.3-5.1); Sodium 134 mmol/L (133-145)
[2024-05-12] MEDS: 0.9 % SODIUM CHLORIDE 1,000 ML IV ONE (13:26)
[2024-05-12] MEDS: morphine 4 MG/ML VIAL IV ONE ×2 (13:26→14:47)
[2024-05-12] MEDS: CEFEPIME 1 GM VIAL IV ONE (13:27)
[2024-05-12] MEDS: VANCOMYCIN 1,500 MG in 0.9 % SODIUM CHLORIDE 500 ML IV ONE (13:56)
[2024-05-12 14:20] LABS: Appearance,Urine Clear (Clear); Bacteria,Urine Mod /hpf (0); Bilirubin,Urine Negative (Negative); Color,Urine Yellow; Glucose,Urine (UA) Negative (Negative); Ketones,Urine Negative (Negative); Leukocyte Esterase,Urine Small /uL (Negative); Nitrate,Urine Positive (Negative); PH,Urine 8.5 (5.0-9.0); Protein,Urine Trace mg/dL (Negative); Specific Gravity,Urine 1.015 (1.000-1.035); Urine Blood Negative ery/mcL (Negative); Urine RBC 0 /hpf (0-3); Urine Squamous Epithelial Cell 0 /hpf (0-4); Urine WBC 30 /hpf (0-4); Urobilinogen,Urine Normal
[2024-05-12] MEDS ORDERED: POTASSIUM CHLORIDE 20 MEQ TABLET PO PRN ×2 (17:16)
[2024-05-12] MEDS ORDERED: POLYETHYLENE GLYCOL 3350 17 GM PACKET PO PRN (17:16)
[2024-05-12] MEDS ORDERED: BISACODYL 10 MG SUPP.RECT PR PRN (17:16)
[2024-05-12] MEDS ORDERED: SENNOSIDES 1 TABLET PO PRN (17:16)
[2024-05-12] MEDS ORDERED: ACETAMINOPHEN 160 MG/5 ML ORAL.SOL PO PRN (17:16)
[2024-05-12] MEDS ORDERED: FLEETS ADULT 1 DOSE ENEMA PR PRN (17:16)
[2024-05-12] MEDS ORDERED: POTASSIUM CHLORIDE 40 MEQ in DEXTROSE 5% IN WATER 500 ML IV PRN (17:16)
[2024-05-12] MEDS ORDERED: IPRATROPIUM/ALBUTEROL 3 ML AMPUL.NEB NEB PRN (17:16)
[2024-05-12] MEDS ORDERED: MAGNESIUM SULFATE 2 GM/50 ML BAG IV PRN (17:16)
[2024-05-12] MEDS: morphine 4 MG/ML VIAL IV PRN (17:27)
[2024-05-12] MEDS: morphine 4 MG/ML VIAL ONE (19:15)
[2024-05-12] MEDS: cefTRIAXone 1 GM VIAL IV SCH (20:09)
[2024-05-12] MEDS: AZITHROMYCIN 500 MG in 0.9 % SODIUM CHLORIDE 250 ML IV SCH (20:18)
[2024-05-12] MEDS: DOCUSATE SODIUM 100 MG CAPSULE PO SCH (21:49)
[2024-05-12] MEDS: PANTOPRAZOLE 40 MG PACKET PO SCH (22:12)
[2024-05-12] MEDS: APIXABAN 5 MG TABLET PO SCH (22:12)
[2024-05-12] MEDS: METOPROLOL TARTRATE 25 MG TABLET PO SCH (22:12)
[2024-05-12] MEDS: LIDOCAINE 2% URO-JET 10 ML JEL.PF.APP UR ONE (22:51)
[2024-05-13 06:36] LABS: Basophils # (Auto) 0.03 K/mcL (0.00-0.30); Basophils % (Auto) 0.2 % (0.0-2.0); Eosinophils # (Auto) 0.16 K/mcL (0.00-0.70); Eosinophils % (Auto) 1.3 % (0.0-7.0); Hematocrit 31.2 % (40.1-51.0); Lymphocytes % (Auto) 8.9 % (15.5-49.0); Mean Cell Volume 100.3 fL (80.0-100.0); Mean Corpuscular HGB Conc 32.1 g/dL (31.0-36.0); Mean Platelet Volume 10.2 fL (8.8-12.5); Monocytes # (Auto) 0.61 K/mcL (0.10-0.90); Monocytes % (Auto) 4.9 % (1.0-12.0); Neutrophils % (Auto) 83.8 % (38.0-78.0); Platelet Count 337 K/mcL (140-440); RBC 3.11 M/mcL (4.63-6.08); Red Cell Distribution Width 15.7 % (11.5-14.5); WBC 12.3 K/mcL (4.5-11.0)
[2024-05-13 06:50] LABS: ALT/SGPT 18 U/L (<40); AST/SGOT 22 U/L (<40); Albumin 2.5 gm/dL (3.2-5.2); Albumin/Globulin Ratio 0.8 (1.0-2.3); Alkaline Phosphatase 108 U/L (39-117); Bilirubin,Direct < 0.2 mg/dL (0-0.3); Bilirubin,Total 0.4 mg/dL (0.1-1.0); Blood Urea Nitrogen 14 mg/dL (8-23); Calcium 7.8 mg/dL (8.6-10.4); Carbon Dioxide 24 mmol/L (22-30); Chloride 105 mmol/L (96-108); Globulin 3.1 gm/dL (2.2-3.7); Glomerular Filtration Rate 100; Glucose 98 mg/dL (70-105); Lactate Dehydrogenase 112 U/L (135-225); Phosphorous 3.5 mg/dL (2.5-4.5); Potassium 4.2 mmol/L (3.3-5.1); Sodium 137 mmol/L (133-145); Triglycerides 74 mg/dL (<150); Uric Acid 3.7 mg/dL (2.5-8.0)
[2024-05-13] MEDS: ONDANSETRON 4 MG/2 ML VIAL IV PRN (10:02)
[2024-05-13] MEDS: METOPROLOL TARTRATE 25 MG TABLET PO SCH (10:02)
[2024-05-13] MEDS: fentaNYL 50 MCG PATCH TD SCH (10:50)
[2024-05-13] MEDS: DOCUSATE SODIUM 10 MG/ML ML PO SCH (13:14)
[2024-05-13] MEDS: METOCLOPRAMIDE 10 MG/2 ML VIAL IV PRN (14:20)
[2024-05-13] MEDS: HYDROcodone/APAP 5/325MG TABLET PO PRN (14:20)
[2024-05-13] MEDS: MELATONIN 3 MG TABLET PO PRN (20:02)
[2024-05-13] MEDS: CHLORHEXIDINE GLUCONATE 15 ML UDC SWABMOUTH SCH (20:06)
[2024-05-14 05:58] LABS: Basophils # (Auto) 0.03 K/mcL (0.00-0.30); Basophils % (Auto) 0.3 % (0.0-2.0); Eosinophils # (Auto) 0.37 K/mcL (0.00-0.70); Eosinophils % (Auto) 3.8 % (0.0-7.0); Hematocrit 31.4 % (40.1-51.0); Lymphocytes # (Auto) 0.95 K/mcL (1.50-4.80); Lymphocytes % (Auto) 9.9 % (15.5-49.0); Mean Cell Volume 100.6 fL (80.0-100.0); Mean Corpuscular HGB Conc 31.8 g/dL (31.0-36.0); Mean Platelet Volume 9.8 fL (8.8-12.5); Monocytes # (Auto) 0.69 K/mcL (0.10-0.90); Monocytes % (Auto) 7.2 % (1.0-12.0); Neutrophils % (Auto) 76.8 % (38.0-78.0); Platelet Count 351 K/mcL (140-440); RBC 3.12 M/mcL (4.63-6.08); Red Cell Distribution Width 15.6 % (11.5-14.5); WBC 9.6 K/mcL (4.5-11.0)
[2024-05-14 06:17] LABS: ALT/SGPT 15 U/L (<40); AST/SGOT 19 U/L (<40); Albumin 2.5 gm/dL (3.2-5.2); Albumin/Globulin Ratio 0.8 (1.0-2.3); Alkaline Phosphatase 105 U/L (39-117); Bilirubin,Direct < 0.2 mg/dL (0-0.3); Bilirubin,Total 0.2 mg/dL (0.1-1.0); Blood Urea Nitrogen 16 mg/dL (8-23); Calcium 7.8 mg/dL (8.6-10.4); Carbon Dioxide 26 mmol/L (22-30); Chloride 104 mmol/L (96-108); Glomerular Filtration Rate 100; Glucose 118 mg/dL (70-105); Lactate Dehydrogenase 104 U/L (135-225); Phosphorous 4.2 mg/dL (2.5-4.5); Sodium 137 mmol/L (133-145); Triglycerides 91 mg/dL (<150); Uric Acid 3.9 mg/dL (2.5-8.0)
[2024-05-14] MEDS: fentaNYL 50 MCG PATCH TD SCH (09:54)
[2024-05-14] MEDS ORDERED: VANCOMYCIN PER PHARMACY IV SCH (10:18)
[2024-05-14] MEDS: CEFEPIME 2 GM VIAL IV SCH (10:54)
[2024-05-14] MEDS: VANCOMYCIN 1,250 MG in 0.9 % SODIUM CHLORIDE 500 ML IV SCH (11:00)
[2024-05-15 06:28] LABS: ALT/SGPT 13 U/L (<40); AST/SGOT 18 U/L (<40); Albumin 2.4 gm/dL (3.2-5.2); Albumin/Globulin Ratio 0.7 (1.0-2.3); Alkaline Phosphatase 114 U/L (39-117); Bilirubin,Direct < 0.2 mg/dL (0-0.3); Bilirubin,Total 0.2 mg/dL (0.1-1.0); Blood Urea Nitrogen 14 mg/dL (8-23); Calcium 7.7 mg/dL (8.6-10.4); Carbon Dioxide 24 mmol/L (22-30); Chloride 103 mmol/L (96-108); Globulin 3.3 gm/dL (2.2-3.7); Glomerular Filtration Rate 110; Glucose 127 mg/dL (70-105); Lactate Dehydrogenase 111 U/L (135-225); Phosphorous 3.2 mg/dL (2.5-4.5); Potassium 3.8 mmol/L (3.3-5.1); Sodium 135 mmol/L (133-145); Triglycerides 87 mg/dL (<150); Uric Acid 3.4 mg/dL (2.5-8.0)
[2024-05-15] MEDS: PNEUMOCOCCAL 23-VAL P-SAC VAC 0.5 ML SYRINGE IM ONE (10:54)
[2024-05-15] MEDS: FLU VACC TS2024-25(65YR UP)/PF 180 MCG/0.5 ML SYRINGE IM ONE (12:24)
[2024-05-15] MEDS ORDERED: VANCOMYCIN 1,500 MG in 0.9 % SODIUM CHLORIDE 500 ML IV SCH (23:00)
== END 2024-05-15 13:30 | DRG 177 ==
LOC: ED 11:46 → ICU 17:10
PROVIDERS: ADMIT Internal Medicine; ATTEND Internal Medicine